=== PATIENT | female | born 1955 | race African-American/Black ===

== ENCOUNTER 2019-04-25 20:41 | Emergency (ER) | payer MEDICAID ==
[~2019-04-25] VITALS: Ht 162.6 cm; Wt 86.2 kg
--- NOTE | 2019-04-25 21:00 | NUR ---
ED Nurse Note: Patient was BIBA from home due to N/V, abdominal pain X2 days. Stated that has Hx of IBS. Patient presented anxious, crying, c/o abd pain 04/16. AAO x4, VSS at this time, skin ios dry warm to touch.
[2019-04-25 21:03] VITALS: BP 160/100
--- NOTE | 2019-04-25 21:08 | Emergency Room Report ---
History of Present Illness General Chief Complaint: Abdominal Pain Source: Patient Present Illness HPI Is a 63-year-old female with a history of IBS. She also has previous lap scopic cholecystectomy. She presents with chief complaint abdominal pain. Pain is mostly right upper quadrant. Onset for last 2 days. Has nausea but no vomiting. No diarrhea. Pain is 9 out of 10. Worse with movement. No fever chills. No trauma. Nothing made it better. Denies any other complaint. Allergies: Coded Allergies: CIMETIDINE (Verified Allergy, Unknown, 04/25/19) IODINATED CONTRAST MEDIA (Verified Allergy, Unknown, 04/25/19) Uncoded Allergies: IDODINE (Allergy, Unknown, 04/25/19) Patient History Past Medical History: see triage record, old chart reviewed Past Surgical History: cha Pertinent Family History: none Social History: Denies: smoking Now: No Immunizations: other Reviewed Nursing Documentation: PMH: Agreed; PSxH: Agreed Nursing Documentation-PMH Past Medical History: No Stated History Review of Systems Eye: Denies: eye pain, blurred vision ENT: Denies: ear pain, nose congestion, throat swelling Respiratory: Denies: cough, shortness of breath Cardiovascular: Denies: chest pain, palpitations Gastrointestinal: Reports: abdominal pain, nausea; Denies: diarrhea, vomiting Musculoskeletal: Denies: back pain, joint pain Skin: Denies: rash Neurological: Denies: headache, numbness Endocrine: Denies: increased thirst, increased urine Hematologic/Lymphatic: Denies: easy bruising All Other Systems: negative except mentioned in HPI Physical Exam Vital Signs Date Time Temp Pulse Resp B/P (MAP) Pulse Ox O2 Delivery O2 Flow Rate FiO2 04/25/19 20:43 98.4 70 18 160/100 (120) 98 Room Air Vitals with high blood pressure Sp02 EP Interpretation: reviewed, normal General Appearance: well appearing, no apparent distress, alert Head: normocephalic, atraumatic Eyes: bilateral eye PERRL, bilateral eye EOMI ENT: hearing grossly normal, normal pharynx Neck: full range of motion, supple, no meningismus Respiratory: chest non-tender, lungs clear, normal breath sounds Cardiovascular #1: regular rate, rhythm, no murmur Gastrointestinal: no mass, no organomegaly, no bruit, non-distended, tenderness - Diffuse, decreased bowel sounds Musculoskeletal: back normal, gait/station normal, normal range of motion Psychiatric: mood/affect normal Medical Decision Making Diagnostic Impression: Primary Impression: SBO (small bowel obstruction) Additional Impression: Pulmonary nodules ER Course Patient presents with abdominal pain with nausea. CT scan shows small bowel obstruction. She had previous laproscopic cholecystectomy. NG tube placed. Pain is better controlled. Patient is stable for transfer versus admit based on insurance. Lab Results Impression Iabs unremarkable CT/MRI/US Diagnostic Results CT/MRI/US Diagnostic Results : Imaging Test Ordered: CT abdomen and pelvis Impression Read by radiologist. She has bibasilar bronchiectasis. Multiple new pulmonary nodule in lungs. Dilated fluid-filled loops of small bowel measuring up to 3.5 cm with transition point in the right lower quadrant. Compatible with small bowel obstruction. Last Vital Signs Date Time Temp Pulse Resp B/P (MAP) Pulse Ox O2 Delivery O2 Flow Rate FiO2 04/25/19 21:03 70 18 Room Air 04/25/19 21:03 98.4 160/100 98 Status: improved Disposition: XFER [facility] Condition: Stable Alexandr Birmingham MD Apr 25, 2019 21:08
[2019-04-25] MEDS ORDERED: HYDROmorphone 1mg/ml Carpuject IVP ONE (21:15)
[2019-04-25 21:20] LABS: ANION GAP 10 mmol/L (5-15); BLOOD UREA NITROGEN 13 mg/dL (7-18); CALCIUM 9.9 MG/DL (8.5-10.1); CARBON DIOXIDE 24 MMOL/L (21-32); CHLORIDE 108 MMOL/L (98-107); CREATININE 1.1 MG/DL (0.55-1.30); SODIUM 142 MMOL/L (136-145)
[2019-04-25 21:26] LABS: ALANINE AMINOTRANSFERASE 19 U/L (12-78); ALBUMIN 3.2 G/DL (3.4-5.0); ALBUMIN/GLOBULIN RATIO 0.7 (1.0-2.7); ALKALINE PHOSPHATASE 68 U/L (46-116); ASPARTATE AMINO TRANSFERASE 13 U/L (15-37); BILIRUBIN,TOTAL 0.3 MG/DL (0.2-1.0)
[2019-04-25 21:35] LABS: APPEARANCE,URINE CLEAR; BILIRUBIN, URINE NEGATIVE (NEGATIVE); COLOR,URINE PALE YELLOW; GLUCOSE, URINE (UA) NEGATIVE (NEGATIVE); KETONES,URINE NEGATIVE (NEGATIVE); LEUKOCYTE ESTERASE ,URINE NEGATIVE (NEGATIVE); NITRITE,URINE NEGATIVE (NEGATIVE); PH,URINE 6 (4.5-8.0); PROTEIN,URINE NEGATIVE (NEGATIVE); UROBILINOGEN,URINE NORMAL MG/DL (0.0-1.0)
[2019-04-25 21:37] LABS: HEMATOCRIT 46.2 % (37.0-47.0); HEMOGLOBIN 15.8 G/DL (12.0-16.0); MEAN CORPUSCULAR VOLUME 91 FL (80-99); PLATELET COUNT 258 K/UL (150-450); RED BLOOD COUNT 5.06 M/UL (4.20-5.40); RED CELL DISTRIBUTION WIDTH 11.5 % (11.6-14.8); WHITE BLOOD COUNT 8.6 K/UL (4.8-10.8)
[2019-04-25] MEDS ORDERED: Morphine Sulfate 4mg/ml Inj (IV USE ONLY) IVP ONE (23:00)
--- NOTE | 2019-04-25 23:01 | Diagnostic Imaging Report ---
EXAM: CT Abdomen and Pelvis Without Intravenous Contrast CLINICAL HISTORY: ABD PAIN TECHNIQUE: Axial computed tomography images of the abdomen and pelvis without intravenous contrast. CTDI is 18.3 mGy and DLP is 1107.8 mGy-cm. One or more of the following dose reduction techniques were used: automated exposure control, adjustment of the mA and or kV according to patient size, use of iterative reconstruction technique. COMPARISON: CT dated 12 18 2010. FINDINGS: Lung bases: Bibasilar bronchiectasis and bronchial wall thickening. Multiple new solid pulmonary nodules in both lung bases measuring up to 5 mm on the left and 9 mm on the right. ABDOMEN: Liver: Unremarkable. Gallbladder and bile ducts: Prior cholecystectomy. No ductal dilation. Pancreas: Unremarkable. No ductal dilation. Spleen: Unremarkable. No splenomegaly. Adrenals: Unremarkable. No mass. Kidneys and ureters: Unremarkable. No calculi. No hydronephrosis. Stomach and bowel: Few scattered diverticula without evidence of diverticulitis. Mildly dilated fluid-filled loops of small bowel measuring up to 3.5 cm with an apparent transition point in the right lower quadrant. PELVIS: Appendix: The appendix is not identified with certainty. Bladder: Unremarkable. No stones. Reproductive: Unremarkable as visualized. ABDOMEN and PELVIS: Intraperitoneal space: Unremarkable. No free air. No significant fluid collection. Bones joints: No acute fracture. Soft tissues: Small fat-containing umbilical hernia. Lymph nodes: Unremarkable. No enlarged lymph nodes. IMPRESSION: 1. Bibasilar bronchiectasis and bronchial wall thickening. 2. Multiple new solid pulmonary nodules in both lung bases measuring up to 5 mm on the left and 9 mm on the right. For high-risk patients consider a follow-up CT at 3 months. If unchanged consider an additional follow-up CT at 18-24 months. Alternatively (or additionally) PET CT or tissue sampling could be performed. 3. Few scattered diverticula without evidence of diverticulitis. 4. Mildly dilated fluid-filled loops of small bowel measuring up to 3.5 cm with an apparent transition point in the right lower quadrant. This is most compatible with small bowel obstruction.
[2019-04-25] MEDS ORDERED: DiphenhydrAMINE 25mg/10ml Elixir ONE (23:08)
[2019-04-25] MEDS ORDERED: DiphenhydrAMINE 50mg/ml Inj IVP ONE (23:15)
--- NOTE | 2019-04-25 23:48 | NUR ---
Face sheet, MD dictation, CT report and clinicals faxed to [phone] as requested by Sneha gandara [facility].
[2019-04-26 00:05] VITALS: BP 160/100
--- NOTE | 2019-04-26 00:26 | NUR ---
ED Nurse Note: NG tube was placed by Dr. Birmingham in right nares, 16 Fr. Patient tolerated procedure well.
[2019-04-26] MEDS ORDERED: HYDROmorphone 1mg/ml Carpuject IVP ONE (02:15)
[2019-04-26 03:45] VITALS: BP 155/75
--- NOTE | 2019-04-26 03:48 | NUR ---
ED Nurse Note: Patient was transfered to the [facility] due to small bowel obstruction. Patient was transfered via [facility] BLS # [id number], with all belongings. AAO x4, VSS at this time, skin is warm to touch, IV site L forearm 18 ga.
== END 2019-04-26 03:51 | disposition short-term general hospital (02) ==
LOC: EDBD 20:41 → EMR 21:09
DX: K56.609 Unspecified intestinal obstruction, unspecified as to partial versus complete obstruction (principal); R91.8 Other nonspecific abnormal finding of lung field; Z90.49 Acquired absence of other specified parts of digestive tract; Z88.8 Allergy status to other drugs, medicaments and biological substances; Z91.041 Radiographic dye allergy status
CPT/HCPCS: 36415; 74176; 80053; 81003; 83690; 85007; 85025; 96361; 96374; 96375; 96376; J1170; J1200; J2270; J2405; Z7502; 99285; J7030

== ENCOUNTER 2019-05-31 19:54 | Emergency (ER) | payer MEDICAID ==
[~2019-05-31] VITALS: Ht 162.6 cm; Wt 86.2 kg
[2019-05-31 20:05] VITALS: BP 144/88
--- NOTE | 2019-05-31 20:07 | Emergency Room Report ---
History of Present Illness General Chief Complaint: Multiple Trauma/Fall Source: Patient, EMS Present Illness HPI Patient fell after a stair gave way. It was the second to the last stair. She more slipped and scraped her back. She also twisted and hit her left knee and hit her left shoulder. There was no loss of consciousness. She was able to walk a few steps afterwards. She is complaining about severe pain in her shoulder and her knee at this time with some pain in her back also. She states she scraped her back. She rates the pain 10/10, aching and sharp with some burning where she scraped herself. Unknown last tetanus vaccination. Right-handed. History of hypertension. Disabled due to depression. No fevers, chills, sore throat, chest pain, palpitations, nausea, vomiting, diarrhea, dysuria, abdominal pain, shortness of breath, anxiety, visual changes , dizziness, headache. Allergies: Coded Allergies: CIMETIDINE (Verified Allergy, Unknown, 04/25/19) IODINATED CONTRAST MEDIA (Verified Allergy, Unknown, 04/25/19) Uncoded Allergies: IDODINE (Allergy, Unknown, 04/25/19) Patient History Past Medical History: see triage record Social History: Reports: smoking; Denies: alcohol use, drug use Social History Narrative Lives by herself Now: No Reviewed Nursing Documentation: PMH: Agreed; PSxH: Agreed Nursing Documentation-PMH Past Medical History: No History, Except For Hx Hypertension: Yes Hx Asthma: Yes History Of Psychiatric Problem: Yes Review of Systems All Other Systems: negative except mentioned in HPI Physical Exam Vital Signs Date Time Temp Pulse Resp B/P (MAP) Pulse Ox O2 Delivery O2 Flow Rate FiO2 05/31/19 19:59 97.9 84 18 143/91 (108) 98 Room Air Sp02 EP Interpretation: reviewed, normal General Appearance: well appearing, no apparent distress - But in pain, GCS 15 Head: normocephalic, atraumatic Eyes: bilateral eye normal inspection, bilateral eye PERRL, bilateral eye EOMI ENT: moist mucus membranes Neck: full range of motion, supple, no bony tend Respiratory: chest non-tender, lungs clear, normal breath sounds Cardiovascular #1: regular rate, rhythm Cardiovascular #2: 2+ radial (R), 2+ radial (L), 2+ dorsalis pedis (L) Gastrointestinal: normal inspection, normal bowel sounds, non tender, no mass, non-distended Musculoskeletal: normal range of motion, gait/station normal, tender - Upper back, left shoulder and left knee, other - Knee ligaments stable, no effusion, shoulder with fairly good passive range of motion with some tenderness. Elbow and wrist without tenderness, diffuse T-spine tenderness particularly over areas of abrasion. Neurologic: alert, oriented x3, grossly normal Psychiatric: mood/affect normal Skin: normal color, warm/dry, other - Abrasion right upper back and under watchband right wrist Medical Decision Making Diagnostic Impression: Primary Impression: Multiple injuries due to trauma Additional Impressions: Contusion of left shoulder Qualified Codes: S40.012A - Contusion of left shoulder, initial encounter Contusion of left knee Qualified Codes: S80.02XA - Contusion of left knee, initial encounter Back contusion Qualified Codes: S20.229A - Contusion of unspecified back wall of thorax, initial encounter Osteoarthritis Qualified Codes: M19.90 - Unspecified osteoarthritis, unspecified site ER Course Patient slipped downstairs and have left shoulder, knee and back pain. Differential includes contusions, abrasions, fracture. X-rays are indicated of the T-spine, shoulder and left knee. Patient will be treated for pain. Urinalysis will be checked. X-rays with degenerative arthritis without fractures. Urinalysis clear Michael applied to left knee by me. Tension and position excellent with improvement. Distal neurovascular normal. Sling applied by tech and position excellent with improvement of pain in left shoulder. Discussed treatment plan with patient. She is ambulatory. Patient stable for outpatient observation and treatment. Laboratory Tests Test 05/31/19 20:15 Urine Color Yellow Urine Appearance Clear Urine pH 6 (4.5-8.0) Urine Specific [place] 1.015 (1.005-1.035) Urine Protein Negative (NEGATIVE) Urine Glucose (UA) Negative (NEGATIVE) Urine Ketones Negative (NEGATIVE) Urine Blood Negative (NEGATIVE) Urine Nitrite Negative (NEGATIVE) Urine Bilirubin Negative (NEGATIVE) Urine Urobilinogen 4 MG/DL (0.0-1.0) H Urine Leukocyte Esterase 1+ (NEGATIVE) H Urine RBC 0-2 /HPF (0 - 2) Urine WBC 2-4 /HPF (0 - 2) Urine Squamous Epithelial Cells Few /LPF (NONE/OCC) Urine Bacteria None /HPF (NONE) Other X-Ray Diagnostic Results Other X-Ray Diagnostic Results #1: X-Ray ordered: T-spine # of Views/Limited Vs Complete: 2 View Interpretation: no dislocation, no soft tissue swelling, no fractures, other - Degenerative changes Impression: Other Electronically Signed by: Electronically signed by Gurpreet Wei MD Other X-Ray Diagnostic Results #2: X-Ray ordered: Left shoulder # of Views/Limited Vs Complete: 3 View Indication: Other EP Interpretation: Yes Interpretation: no dislocation, no soft tissue swelling, no fractures, other - Osteoarthritis Impression: Other Electronically Signed by: Electronically signed by Gurpreet Wei MD Other X-Ray Diagnostic Results #3: X-Ray ordered: Left knee # of Views/Limited Vs Complete: 3 View Indication: Other EP Interpretation: Yes Interpretation: no dislocation, no fractures, other - Soft tissue swelling and degenerative arthritis Impression: Other Electronically Signed by: Electronically signed by Gurpreet Wei MD Last Vital Signs Date Time Temp Pulse Resp B/P (MAP) Pulse Ox O2 Delivery O2 Flow Rate FiO2 05/31/19 22:35 98.0 84 18 138/88 98 Room Air 98 Status: improved Disposition: HOME, SELF-CARE Condition: Improved Scripts Bacitracin (Bacitracin) 28.4 Gm Oint...g. 1 APPLIC TOPIC BID, #10 GM Prov: Gurpreet Wei MD 05/31/19 Ibuprofen* (MOTRIN*) 600 Mg Tablet 600 MG ORAL Q6H PRN for For Pain, #16 TAB 0 Refills Prov: Gurpreet Wei MD 05/31/19 Hydrocodone Bit/Acetaminophen 5-325* (NORCO 5-325*) 1 Each Tablet 1 TAB ORAL Q6H PRN for For Pain, #10 TAB 0 Refills Prov: Gurpreet Wei MD 05/31/19 Gurpreet Wei MD May 31, 2019 20:07
[2019-05-31] MEDS ORDERED: Morphine Sulfate 4mg/ml Inj (IV USE ONLY) IVP ONE (20:15)
[2019-05-31] MEDS ORDERED: Ketorolac 30mg Inj IV ONE (20:15)
[2019-05-31] MEDS ORDERED: Tetanus/Diptheria/Pertussis IM ONE (20:45)
[2019-05-31] MEDS ORDERED: Bacitracin Oint UD TOPIC ONE (20:45)
[2019-05-31 20:59] LABS: APPEARANCE,URINE CLEAR; BILIRUBIN, URINE NEGATIVE (NEGATIVE); GLUCOSE, URINE (UA) NEGATIVE (NEGATIVE); KETONES,URINE NEGATIVE (NEGATIVE); LEUKOCYTE ESTERASE ,URINE 1+ (NEGATIVE); NITRITE,URINE NEGATIVE (NEGATIVE); PH,URINE 6 (4.5-8.0); PROTEIN,URINE NEGATIVE (NEGATIVE); UROBILINOGEN,URINE 4 MG/DL (0.0-1.0)
[2019-05-31 21:00] LABS: COLOR,URINE YELLOW
[2019-05-31] MEDS ORDERED: BACITRACIN15 GM TOPIC (22:32)
[2019-05-31] MEDS ORDERED: IBUPROFEN600 MG ORAL (22:32)
[2019-05-31] MEDS ORDERED: NORCO 5-325 TA1 EACH ORAL (22:32)
[2019-05-31 22:35] VITALS: BP 138/88
--- NOTE | 2019-06-01 09:57 | Diagnostic Imaging Report ---
INDICATION: Knee Pain COMPARISON: None 3 views of the left knee were obtained. FINDINGS: Bones are osteopenic. There is moderate tricompartmental osteophyte formation with some joint space narrowing. There is no joint effusion. Alignment is normal. IMPRESSION: Osteoarthritis
--- NOTE | 2019-06-01 09:58 | Diagnostic Imaging Report ---
Indication: left shoulder pain Findings: 3 views of the left shoulder were obtained. No acute fracture or malalignment identified. Bones are osteopenic. There is narrowing, sclerosis and osteophyte formation involving both the acromioclavicular joint and the glenohumeral joint consistent with osteoarthritis. Soft tissues are unremarkable. Degenerative changes of the cervical spine and thoracic spine are incidentally noted. IMPRESSION: No acute injury identified. Osteoarthritis
--- NOTE | 2019-06-01 10:04 | Diagnostic Imaging Report ---
Indication: Back pain Comparison: None Findings: 2 views of the thoracic spine were obtained. Normal alignment is demonstrated. Vertebral body heights and intervertebral disc heights are relatively normal. Mild endplate spurs are noted. The posterior elements including the facets appear mildly hypertrophic. Soft tissues are unremarkable. Impression: No acute injury appreciated. Mild degenerative disease
== END 2019-05-31 22:35 | disposition home or self-care (01) ==
LOC: EDBD 19:54 → EDUNIT# 19:54 → EMR 20:15
DX: S40.012A Contusion of left shoulder, initial encounter (principal); S80.02XA Contusion of left knee, initial encounter; S20.229A Contusion of unspecified back wall of thorax, initial encounter; M19.90 Unspecified osteoarthritis, unspecified site; W01.0XXA Fall on same level from slipping, tripping and stumbling without subsequent striking against object, initial encounter; Y92.9 Unspecified place or not applicable; Z91.041 Radiographic dye allergy status; I10 Essential (primary) hypertension; F17.200 Nicotine dependence, unspecified, uncomplicated; Z23 Encounter for immunization; M17.12 Unilateral primary osteoarthritis, left knee; M19.012 Primary osteoarthritis, left shoulder
CPT/HCPCS: 72070; 73030; 73562; 81001; 90471; 90715; 96374; 96375; J1885; J2270; J2405; Z7502; 99284

== ENCOUNTER 2020-04-15 13:13 | Emergency (ER) | payer MEDICAID, OTHER ==
[~2020-04-15] VITALS: Ht 162.6 cm; Wt 96.2 kg
[~2020-04-15 13:13] MED LIST: BACITRACIN15 GM TOPIC; IBUPROFEN600 MG ORAL; NORCO 5-325 TA1 EACH ORAL
[2020-04-15] MEDS ORDERED: Morphine Sulfate 2mg/ml Inj(IV/IM USE ONLY) IVP ONE (13:45)
--- NOTE | 2020-04-15 14:10 | NUR ---
ED Nurse Note:pt. came with abdominal pain, A/Ox4 ambulatory, VSS, blood and urine sent to labs, given IV fluids and meds
[2020-04-15 14:23] LABS: APPEARANCE,URINE CLEAR; BASOPHILS % (AUTO) 2.9 % (0.0-2.0); BILIRUBIN, URINE NEGATIVE (NEGATIVE); EOSINOPHILS % (AUTO) 0.8 % (0.0-3.0); GLUCOSE, URINE (UA) NEGATIVE (NEGATIVE); HEMATOCRIT 42.5 % (37.0-47.0); HEMOGLOBIN 14.8 G/DL (12.0-16.0); KETONES,URINE NEGATIVE (NEGATIVE); LEUKOCYTE ESTERASE ,URINE NEGATIVE (NEGATIVE); LYMPHOCYTES % (AUTO) 26.8 % (20.0-45.0); MEAN CORPUSCULAR VOLUME 89 FL (80-99); MONOCYTES % (AUTO) 4.4 % (1.0-10.0); NEUTROPHILS % (AUTO) 65.1 % (45.0-75.0); NITRITE,URINE NEGATIVE (NEGATIVE); PH,URINE 6 (4.5-8.0); PLATELET COUNT 301 K/UL (150-450); PROTEIN,URINE 1+ (NEGATIVE); RED BLOOD COUNT 4.78 M/UL (4.20-5.40); RED CELL DISTRIBUTION WIDTH 12.3 % (11.6-14.8); UROBILINOGEN,URINE NORMAL MG/DL (0.0-1.0); WHITE BLOOD COUNT 13.4 K/UL (4.8-10.8)
[2020-04-15 14:24] LABS: COLOR,URINE YELLOW
[2020-04-15 14:35] LABS: INR 0.9 (0.9-1.1)
[2020-04-15 14:37] VITALS: BP 153/90
[2020-04-15 14:44] LABS: ANION GAP 13 mmol/L (5-15); BLOOD UREA NITROGEN 10 mg/dL (7-18); CALCIUM 9.1 MG/DL (8.5-10.1); CARBON DIOXIDE 22 MMOL/L (21-32); CHLORIDE 103 MMOL/L (98-107); POTASSIUM 4.5 MMOL/L (3.5-5.1); SODIUM 138 MMOL/L (136-145)
[2020-04-15 14:50] LABS: ALANINE AMINOTRANSFERASE 16 U/L (12-78); ALBUMIN 3.4 G/DL (3.4-5.0); ALBUMIN/GLOBULIN RATIO 0.8 (1.0-2.7); ALKALINE PHOSPHATASE 75 U/L (46-116); ASPARTATE AMINO TRANSFERASE 19 U/L (15-37); BILIRUBIN,TOTAL 0.6 MG/DL (0.2-1.0)
--- NOTE | 2020-04-15 14:51 | Emergency Room Report ---
History of Present Illness General Chief Complaint: Abdominal Pain Source: Patient (Iraida Law) Present Illness HPI 64-year-old female with history of small bowel obstruction here complaining of 1 week of epigastric abdominal pain rating a 10/10 with multiple bouts of nonbloody emesis. Denies any diarrhea however reports that it is really hard for her to make back bowel movement denies any blood in stool. Denies fever and chills, complains of congestion however denies cough. No shortness of breath. Reports that end of February she went to [facility] and was diagnosed with bowel obstruction was sent to follow-up with primary doctor. Patient went to primary doctor today and was sent to the emergency room. Denies any drug use and alcohol intake. Reports that she smokes tobacco. Reports that she recently lost her sister and she has been very sad. Denies urinary symptoms. Abdomen is not rigid. EYES: PERRL, EOMI, no discharge or injection. Denies any chest pain, headache and dizziness. (Iraida Law) Allergies: Coded Allergies: CIMETIDINE (Verified Allergy, Unknown, 04/25/19) IODINATED CONTRAST MEDIA (Verified Allergy, Unknown, 04/25/19) Uncoded Allergies: IDODINE (Allergy, Unknown, 04/25/19) COVID-19 Screening Contact w/high risk pt: No Experienced COVID-19 symptoms?: No COVID-19 Testing performed [employer]: Yes - 2 weeks ago COVID-19 Screening: Negative COVID-19 COVID-19 Testing Source: [facility] (Iraida Law) Patient History Past Medical History: see triage record Past Surgical History: none Pertinent Family History: none Social History: Reports: smoking Now: No Reviewed Nursing Documentation: PMH: Agreed; PSxH: Agreed (Iraida Law) Nursing Documentation-PMH Hx Cardiac Problems: Yes Hx Hypertension: Yes Hx Asthma: Yes Hx Cancer: No Hx Gastrointestinal Problems: Yes - GERD Hx Neurological Problems: No (Iraida Law) Review of Systems All Other Systems: negative except mentioned in HPI (Iraida Law) Physical Exam Vital Signs Date Time Temp Pulse Resp B/P (MAP) Pulse Ox O2 Delivery O2 Flow Rate FiO2 10/9/20 13:20 98.1 97 22 157/94 (115) 98 Sp02 EP Interpretation: reviewed, normal General Appearance: alert, GCS 15, non-toxic, moderate distress Head: normocephalic, atraumatic Eyes: bilateral eye normal inspection, bilateral eye PERRL ENT: hearing grossly normal, normal pharynx, no angioedema, normal voice Neck: supple Respiratory: chest non-tender, lungs clear, normal breath sounds, no rhonchi, no retraction, speaking full sentences Cardiovascular #1: regular rate, rhythm, no edema, no murmur Cardiovascular #2: 2+ carotid (R), 2+ carotid (L), 2+ radial (R), 2+ radial (L), 2+ dorsalis pedis (R), 2+ dorsalis pedis (L) Gastrointestinal: normal bowel sounds, non tender, soft, non-distended, no guarding, no rebound Genitourinary: no CVA tenderness Musculoskeletal: back normal, no calf tenderness Neurologic: alert, motor strength/tone normal, oriented x3, sensory intact, responsive, speech normal Psychiatric: judgement/insight normal, memory normal, mood/affect normal, no suicidal/homicidal ideation Skin: no rash Lymphatic: no adenopathy (Iraida Law) Medical Decision Making PA Attestation Diagnosis and treatment plans were reviewed and discussed with my supervising physician Dr. Vegas (Iraida Law) PA Attestation I participate in the care of this patient along with ANITA Johnson Briefly this is a 64-year-old female with prior history of bowel obstruction presenting with abdominal pain. Labs returned within normal limits aside from testing positive for cocaine on urine drug screen. No bowel obstruction id entified on CT scan of the abdomen however the patient does appear to have diverticulitis. She is afebrile with normal-appearing vital signs and normal labs otherwise. Will be treated with antibiotics on an outpatient basis. She feels comfortable with this discharge plan. Advised her to follow-up with PMD as soon as possible and to return with new or worsening symptoms. She un derstands and agrees with this treatment plan. (Chuck Bailon MD) Diagnostic Impression: Primary Impression: Diverticulitis Additional Impression: Cocaine abuse ER Course 64-year-old female with history of small bowel obstruction here complaining of 1 week of epigastric abdominal pain rating a 10/10 with multiple bouts of nonbloody emesis. Denies any diarrhea however reports that it is really hard for her to make back bowel movement denies any blood in stool. Denies fever and chills, complains of congestion however denies cough. No shortness of breath. Reports that end of February she went to [facility] and was diagnosed with bowel obstruction was sent to follow-up with primary doctor. Patient went to primary doctor today and was sent to the emergency room. Denies any drug use and alcohol intake. Reports that she smokes tobacco. Reports that she recently lost her sister and she has been very sad. Denies urinary symptoms. Abdomen is not rigid. EYES: PERRL, EOMI, no discharge or injection. Denies any chest gaurav n, headache and dizziness. Ddx considered but are not limited to: appendicitis, cholecystis, gastritis, gastroenteritis, UTI, pyelonephritis, SBO, diverticulitis, influenza with GI manifestation, SD, pancreatitis Patient has an upcoming appointment with primary doctor next week and is afebrile and wants to go home okay to be discharged with antibiotics. Vital signs: are WNL, pt. is afebrile H&PE are most consistent with: diverticulitis ORDERS: abdominal CT, abdominal pain set, EKG, Cipro, Flagyl, Zofran, Tylenol ED INTERVENTIONS: NS bolus, morphine, Pepcid, Zofran DISCHARGE: At this time pt. is stable for d/c to home. Will provide printed patient care instructions, and any necessary prescriptions. Care plan and follow up instructions have been discussed with the patient prior to discharge. Take medication as directed, follow-up with your primary care provider, worsening symptoms return to the emergency room (Iraida Law) EKG Diagnostic Results Rate: normal Rhythm: NSR ST Segments: no acute changes Other Impression No acute ST changes (Iraida Law) CT/MRI/US Diagnostic Results CT/MRI/US Diagnostic Results : Imaging Test Ordered: CT abdomen pelvis no contrast Impression Diverticulitis noted, no SBO noted (Iraida Law) Last Vital Signs Date Time Temp Pulse Resp B/P (MAP) Pulse Ox O2 Delivery O2 Flow Rate FiO2 04/15/20 14:37 98.1 94 22 153/90 98 (Iraida Law) Disposition: HOME, SELF-CARE Condition: Stable Scripts Acetaminophen* (TYLENOL EXTRA STRENGTH*) 500 Mg Tablet 500 MG ORAL Q8H PRN for Prn Headache/Temp > 101, #30 TAB 0 Refills Prov: Iraida Law 04/15/20 Ondansetron (Zofran) 4 Mg Tablet 4 MG ORAL Q6H PRN for Nausea & Vomiting, #14 TAB Prov: Iraida Law 04/15/20 Ciprofloxacin* (CIPRO*) 500 Mg Tablet 500 MG PO BID for 10 Days, #20 TAB Prov: Iraida Law 04/15/20 Metronidazole* (FLAGYL*) 500 Mg Tablet 500 MG ORAL BID for 10 Days, #20 TAB Prov: Iraida Law 04/15/20 Referrals: NOT CHOSEN IPA/,REFERRING (PCP) Patient Instructions: Diverticulitis, [id number], Stimulant Use Disorder- Cocaine Additional Instructions: Take medication as directed, follow-up with your primary care provider, worsening symptoms return to the emergency room Iraida Law Apr 15, 2020 14:51 Chuck Bailon MD Apr 15, 2020 17:21
[2020-04-15] MEDS ORDERED: ZOFRAN4 M1 ORAL (15:40)
[2020-04-15] MEDS ORDERED: TYLENOL EXTRA500 MG ORAL (15:40)
[2020-04-15] MEDS ORDERED: CIPRO500 MG PO (15:40)
[2020-04-15] MEDS ORDERED: METRONIDAZOLE500 MG ORAL (15:40)
--- NOTE | 2020-04-15 15:41 | Diagnostic Imaging Report ---
Indication: Epigastric abdominal pain 10 out of 10 with multiple bouts of nonbloody emesis Technique: Spiral acquisitions obtained through the abdomen and pelvis. No oral contrast utilized, per emergency room physician request No IV contrast utilized, per emergency room physician request.. Multiplanar reconstructions were generated. Total dose length product 701 mGycm. CTDIvol(s) 13 mGy. Dose reduction achieved using automated exposure control Comparison: 07/24/2019 Findings: The is colonic diverticulosis. There is infiltration of the pericolonic fat at the junction of the descending colon and sigmoid. No extraluminal gas or organized fluid collection demonstrated. The appendix is not visualized. No findings to suggest acute appendicitis are evident. No small bowel distention. Distal esophagus, stomach, duodenum are unremarkable. No free or loculated intraperitoneal gas or fluid is evident. Lack of IV contrast limits assessment of solid organs. The gallbladder has been removed. The liver, bile ducts, pancreas, spleen, adrenals, kidneys are all unremarkable. No renal or ureteral calculi, hydronephrosis nor hydroureter. Prominent but not frankly enlarged retroperitoneal nodes are demonstrated. No pelvic mass or adenopathy. The uterus is absent. The included lung bases demonstrate bronchiectasis, small cystic spaces, and a slight mosaic perfusion pattern The bones demonstrate degenerative spondylosis changes. Impression: Evidence of acute uncomplicated distal descending/proximal sigmoid diverticulitis Evidence of pulmonary parenchymal interstitial disease, also previously described Other findings as noted, including prior cholecystectomy, prior hysterectomy The CT scanner at [facility] is accredited by the [employer] and the scans are performed using protocols designed to limit radiation exposure to as low as reasonably achievable to attain images of sufficient resolution adequate for diagnostic evaluation.
[2020-04-15 15:45] VITALS: BP 153/90
--- NOTE | 2020-04-15 15:45 | NUR ---
ER DISCHARGE NOTE: Patient is cleared to be discharged per ERMD, pt is aox4, on room air, with stable vital signs. pt was given dc and prescription instructions, pt was able to verbalize understanding, pt id band and iv site removed without complications. pt is able to ambulate with steady gait. pt took all belongings.
--- NOTE | 2020-04-18 06:20 | Cardiology Report ---
APPROVED REPORT EKG Measurement Heart [id number] <Conclusion> Normal sinus rhythm Possible Left atrial enlargement Borderline ECG
== END 2020-04-15 15:45 | disposition home or self-care (01) ==
LOC: EMR 13:45
DX: K57.92 Diverticulitis of intestine, part unspecified, without perforation or abscess without bleeding (principal); F14.10 Cocaine abuse, uncomplicated; Z91.041 Radiographic dye allergy status; I10 Essential (primary) hypertension; K21.9 Gastro-esophageal reflux disease without esophagitis; F17.200 Nicotine dependence, unspecified, uncomplicated; Z90.49 Acquired absence of other specified parts of digestive tract; Z90.710 Acquired absence of both cervix and uterus; M47.9 Spondylosis, unspecified
CPT/HCPCS: 36415; 74176; 80053; 80307; 81003; 83690; 84484; 85025; 85610; 85730; 86850; 86900; 86901; 93005; 96361; 96374; 96375; G0480; J2270; J2405; J7030; S0028; Z7502; 99284

== ENCOUNTER 2020-04-23 21:08 | Inpatient (IN) | payer OTHER ==
[~2020-04-23] VITALS: Ht 162.6 cm; Wt 99.3 kg
[~2020-04-23 21:08] MED LIST changes: +CIPRO500 MG PO; +METRONIDAZOLE500 MG ORAL; +TYLENOL EXTRA500 MG ORAL; +ZOFRAN4 M1 ORAL
--- NOTE | 2020-04-23 21:15 | NUR ---
ED Nurse Note: Patient walked into the ED with c/o lower abdominal pain. Pain is rated 10/10, non radiating accompanied with nausea and vomiting. Patient denies injury/ trauma. PAtient was seen days ago for bowel obstruction and was prescribed antibiotics and pain meds. Patient denies fever and chills, CP/SOB/. PAtient is AAOX4 and ambulatory. Placed on monitor bed
--- NOTE | 2020-04-23 21:16 | NUR ---
ED Nurse Note: ERMD at bedside
[2020-04-23] MEDS ORDERED: Morphine Sulfate 4mg/ml Inj (IV USE ONLY) IVP ONE (21:30)
--- NOTE | 2020-04-23 21:30 | NUR ---
ED Nurse Note: Blood sent to lab
--- NOTE | 2020-04-23 21:40 | Emergency Room Report ---
History of Present Illness General Chief Complaint: Abdominal Pain Source: Patient Present Illness HPI 64-year-old female with a history of diverticulitis diagnosed 10 days ago, recurrent small bowel obstructions, here with abdominal pain and vomiting. Patient says that her symptoms have been ongoing for 2 days. Has vomited multiple times nonbilious nonbloody. She is taking MiraLAX and says that she has been having small amount of loose stools. Last bowel movement was earlier today. Pain is diffuse, sharp in nature, does not radiate. Has been taking Tylenol at home without relief. No headaches, vision changes, fevers, chills, chest pain, palpitation, shortness of breath, back pain, dysuria. Allergies: Coded Allergies: CIMETIDINE (Verified Allergy, Unknown, 04/25/19) IODINATED CONTRAST MEDIA (Verified Allergy, Unknown, 04/25/19) Uncoded Allergies: IDODINE (Allergy, Unknown, 04/25/19) COVID-19 Screening Contact w/high risk pt: No Experienced COVID-19 symptoms?: Yes COVID-19 Testing performed CUSTOMER ACCOUNT COORDINATOR: No Patient History Now: No : 3 Para: 2 Nursing Documentation-[facility] Past Medical History: No History, Except For Hx Cardiac Problems: Yes Hx Hypertension: Yes Hx Asthma: Yes Hx Cancer: No Hx Gastrointestinal Problems: Yes - GERD, bowel obstruction Hx Neurological Problems: No Review of Systems All Other Systems: negative except mentioned in HPI Physical Exam Vital Signs Date Time Temp Pulse Resp B/P (MAP) Pulse Ox O2 Delivery O2 Flow Rate FiO2 04/23/20 21:08 98.2 100 24 151/89 (109) 98 Room Air Sp02 EP Interpretation: reviewed, normal General Appearance: alert, non-toxic, moderate distress, other - Writhing in pain Head: normocephalic, atraumatic Eyes: bilateral eye normal inspection, bilateral eye PERRL ENT: hearing grossly normal, normal pharynx, no angioedema, normal voice Neck: full range of motion, supple/symm/no masses Respiratory: chest non-tender, lungs clear, normal breath sounds, speaking full sentences Cardiovascular #1: regular rate, rhythm, no edema Cardiovascular #2: 2+ carotid (R), 2+ carotid (L), 2+ radial (R), 2+ radial (L), 2+ dorsalis pedis (R), 2+ dorsalis pedis (L) Gastrointestinal: normal bowel sounds, non-distended, no rebound, other - Diffuse abdominal tenderness on palpation. Mild distention. Guarding, no rebound tenderness Rectal: deferred Genitourinary: normal inspection, no CVA tenderness Musculoskeletal: back normal, normal range of motion, gait/station normal, non- tender Neurologic: alert, motor strength/tone normal, oriented x3, sensory intact, responsive, speech normal Psychiatric: judgement/insight normal, memory normal, mood/affect normal, no suicidal/homicidal ideation Lymphatic: no adenopathy Medical Decision Making ER Course 64-year-old female here with abdominal pain. Currently awaiting labs and imaging studies. Patient given 4 mg of morphine and 4 mg of Zofran IV. Signed out to oncoming physician Dr. Hutchison. Last Vital Signs Date Time Temp Pulse Resp B/P (MAP) Pulse Ox O2 Delivery O2 Flow Rate FiO2 04/23/20 21:08 98.2 100 24 151/89 (109) 98 Room Air Referrals: NON PHYSICIAN (PCP) Rolo Houston M.D. Apr 23, 2020 21:40
[2020-04-23 21:53] VITALS: BP 151/89
--- NOTE | 2020-04-23 21:55 | NUR ---
ED Nurse Note: CT scan done
--- NOTE | 2020-04-23 22:04 | Diagnostic Imaging Report ---
EXAM: CT Abdomen and Pelvis Without Intravenous Contrast CLINICAL HISTORY: ABD PAIN TECHNIQUE: Axial computed tomography images of the abdomen and pelvis without intravenous contrast. CTDI is 13.60 mGy and DLP is 714.70 mGy-cm. One or more of the following dose reduction techniques were used: automated exposure control, adjustment of the mA and/or kV according to patient size, use of iterative reconstruction technique. Coronal and sagittal reformatted images were created and reviewed. COMPARISON: 07/24/2019 FINDINGS: Limitations: Study limited due to lack of IV contrast. Lung bases: Basilar lung findings suggesting interstitial lung disease, incompletely evaluated on this study. ABDOMEN: Liver: Unremarkable. Gallbladder and bile ducts: Cholecystectomy. No ductal dilation. Pancreas: Unremarkable. No ductal dilation. Spleen: Unremarkable. No splenomegaly. Adrenals: Unremarkable. No mass. Kidneys and ureters: Unremarkable. No obstructing stones. No hydronephrosis. Stomach and bowel: Possible minimal early diverticulitis involving the proximal sigmoid colon, no perforation or abscess. Recommend correlation with colonoscopy to exclude infiltrative neoplasm. Moderate colonic stool burden could be a cause for pain. No obstruction. PELVIS: Appendix: No findings to suggest acute appendicitis. Bladder: Unremarkable. No stones. Reproductive: Hysterectomy. ABDOMEN and PELVIS: Intraperitoneal space: Unremarkable. No free air. No significant fluid collection. Bones/joints: Multilevel age-related degenerative spine findings and osteopenia. No acute fracture. No dislocation. Soft tissues: Unremarkable. Vasculature: Unremarkable. No abdominal aortic aneurysm. Lymph nodes: Unremarkable. No enlarged lymph nodes. IMPRESSION: 1. Study limited due to lack of IV contrast. 2. Possible minimal early diverticulitis involving the proximal sigmoid colon, no perforation or abscess. 3. Recommend correlation with colonoscopy to exclude infiltrative neoplasm. 4. Moderate colonic stool burden could be a cause for pain. 5. Basilar lung findings suggesting interstitial lung disease, incompletely evaluated on this study. 6. Cholecystectomy. Hysterectomy. 7. Multilevel age-related degenerative spine findings and osteopenia.
[2020-04-23 22:12] LABS: HEMATOCRIT 48.7 % (37.0-47.0); HEMOGLOBIN 16.6 G/DL (12.0-16.0); MEAN CORPUSCULAR VOLUME 93 FL (80-99); PLATELET COUNT 341 K/UL (150-450); RED BLOOD COUNT 5.21 M/UL (4.20-5.40); RED CELL DISTRIBUTION WIDTH 13.6 % (11.6-14.8); WHITE BLOOD COUNT 8.8 K/UL (4.8-10.8)
[2020-04-23 22:16] LABS: INR 0.9 (0.9-1.1)
[2020-04-23 22:32] LABS: APPEARANCE,URINE CLEAR; BILIRUBIN, URINE NEGATIVE (NEGATIVE); GLUCOSE, URINE (UA) NEGATIVE (NEGATIVE); KETONES,URINE 1+ (NEGATIVE); LEUKOCYTE ESTERASE ,URINE 1+ (NEGATIVE); NITRITE,URINE NEGATIVE (NEGATIVE); PH,URINE 6 (4.5-8.0); PROTEIN,URINE 1+ (NEGATIVE); UROBILINOGEN,URINE 1 MG/DL (0.0-1.0)
[2020-04-23 22:33] LABS: COLOR,URINE YELLOW
[2020-04-23 22:35] LABS: CALCIUM 9.3 MG/DL (8.5-10.1); CREATININE 1.4 MG/DL (0.55-1.30)
[2020-04-23 22:39] LABS: ALBUMIN 3.4 G/DL (3.4-5.0); ALBUMIN/GLOBULIN RATIO 0.7 (1.0-2.7); BILIRUBIN,TOTAL 0.2 MG/DL (0.2-1.0)
--- NOTE | 2020-04-23 22:46 | Emergency Room Report ---
Physical Exam Vital Signs Date Time Temp Pulse Resp B/P (MAP) Pulse Ox O2 Delivery O2 Flow Rate FiO2 04/23/20 21:08 98.2 100 24 151/89 (109) 98 Room Air Medical Decision Making Diagnostic Impression: Primary Impression: Cocaine abuse Additional Impressions: Abdominal pain Diverticulitis ER Course Patient was endorsed to me by Dr. Houston pending CT imaging and laboratory testing. See Dr. Houston note for full History and physical. Was noted to have epigastric pain and left upper abdomen pain. Had recent diagnosis of diverticulitis. Apparently had been vomiting multiple times. CT imaging showed no evidence of bowel obstruction. She was noted to have urine drug screen which is positive for cocaine. Patient denies any cocaine use. EKG showed normal sinus rhythm with a rate of [address] or T wave changes consistent with myocardial ischemia. Patient was given IV Ativan. She started on IV fluids.Patient was endorsed to Dr. Nichols for [facility] who agreed with inpatient observation. Labs Test 04/23/20 21:30 04/23/20 22:10 White Blood Count 8.8 K/UL (4.8-10.8) Red Blood Count 5.21 M/UL (4.20-5.40) Hemoglobin 16.6 G/DL (12.0-16.0) Hematocrit 48.7 % (37.0-47.0) Mean Corpuscular Volume 93 FL (80-99) Mean Corpuscular Hemoglobin 31.8 PG (27.0-31.0) Mean Corpuscular Hemoglobin Concent 34.0 G/DL (32.0-36.0) Red Cell Distribution Width 13.6 % (11.6-14.8) Platelet Count 341 K/UL (150-450) Mean Platelet Volume 10.3 FL (6.5-10.1) Neutrophils (%) (Auto) % (45.0-75.0) Lymphocytes (%) (Auto) % (20.0-45.0) Monocytes (%) (Auto) % (1.0-10.0) Eosinophils (%) (Auto) % (0.0-3.0) Basophils (%) (Auto) % (0.0-2.0) Prothrombin Time 10.0 SEC (9.30-11.50) Prothromb Time International Ratio 0.9 (0.9-1.1) Activated Partial Thromboplast Time 26 SEC (23-33) Urine Color Yellow Urine Appearance Clear Urine pH 6 (4.5-8.0) Urine Specific David 1.020 (1.005-1.035) Urine Protein 1+ (NEGATIVE) Urine Glucose (UA) Negative (NEGATIVE) Urine Ketones 1+ (NEGATIVE) Urine Blood Negative (NEGATIVE) Urine Nitrite Negative (NEGATIVE) Urine Bilirubin Negative (NEGATIVE) Urine Urobilinogen 1 MG/DL (0.0-1.0) Urine Leukocyte Esterase 1+ (NEGATIVE) Urine RBC 0-2 /HPF (0 - 2) Urine WBC 2-4 /HPF (0 - 2) Urine Squamous Epithelial Cells Few /LPF (NONE/OCC) Urine Bacteria Few /HPF (NONE) Sodium Level 139 MMOL/L (136-145) Potassium Level 4.0 MMOL/L (3.5-5.1) Chloride Level 106 MMOL/L (98-107) Carbon Dioxide Level 25 MMOL/L (21-32) Anion Gap 8 mmol/L (5-15) Blood Urea Nitrogen 23 mg/dL (7-18) Creatinine 1.4 MG/DL (0.55-1.30) Estimat Glomerular Filtration Rate 46.1 mL/min (>60) Glucose Level 93 MG/DL (74-106) Calcium Level 9.3 MG/DL (8.5-10.1) Total Bilirubin 0.2 MG/DL (0.2-1.0) Aspartate Amino Transf (AST/SGOT) 32 U/L (15-37) Alanine Aminotransferase (ALT/SGPT) 31 U/L (12-78) Alkaline Phosphatase 70 U/L (46-116) Troponin I 0.000 ng/mL (0.000-0.056) Total Protein 8.2 G/DL (6.4-8.2) Albumin 3.4 G/DL (3.4-5.0) Globulin 4.8 g/dL Albumin/Globulin Ratio 0.7 (1.0-2.7) Lipase 145 U/L (73-393) Urine Opiates Screen Negative (NEGATIVE) Urine Barbiturates Screen Negative (NEGATIVE) Phencyclidine (PCP) Screen Negative (NEGATIVE) Urine Amphetamines Screen Negative (NEGATIVE) Urine Benzodiazepines Screen Negative (NEGATIVE) Urine Cocaine Screen Positive (NEGATIVE) Urine Marijuana (THC) Screen Negative (NEGATIVE) Serum Alcohol < 3 mg/dL EKG Diagnostic Results Rate: normal Rhythm: NSR ST Segments: no acute changes Last Vital Signs Date Time Temp Pulse Resp B/P (MAP) Pulse Ox O2 Delivery O2 Flow Rate FiO2 04/23/20 22:03 98.2 04/23/20 21:53 98 24 151/89 98 Room Air Status: improved Disposition: PLACE IN OBSERVATION Condition: Stable Referrals: NON PHYSICIAN (PCP) Celestino Hutchison MD Apr 23, 2020 22:46
[2020-04-23] MEDS ORDERED: LORazepam Inj 2mg/ml 1ml IV ONE (23:00)
[2020-04-23] MEDS ORDERED: Tubing IV Secondary IV ONE (23:22)
[2020-04-23] MEDS ORDERED: NS 275ml ONE (23:22)
--- NOTE | 2020-04-23 23:24 | NUR ---
ED Nurse Note: Spoke to MADELAINE Rutledge
--- NOTE | 2020-04-23 23:25 | NUR ---
ED Nurse Note: Rapid covid test sent
[2020-04-23] MEDS ORDERED: Zolpidem 5mg tab ORAL PRN (23:45)
[2020-04-23] MEDS ORDERED: Miralax 17gm pkt ORAL PRN (23:45)
[2020-04-23] MEDS ORDERED: HydrALAZINE 25mg tab ORAL PRN (23:45)
[2020-04-23] MEDS ORDERED: Mylanta II UD 30ml ORAL PRN (23:45)
[2020-04-23] MEDS ORDERED: Albuterol/Ipratropium 3ml neb HHN PRN (23:45)
[2020-04-23] MEDS ORDERED: Milk of Magnesia 30ml Ud ORAL PRN (23:45)
[2020-04-24] VITALS (7 sets, daily range): BP systolic 113–145; BP diastolic 69–82
--- NOTE | 2020-04-24 00:25 | NUR ---
ED Nurse Note: Report given to OLGA GILBERT
--- NOTE | 2020-04-24 00:30 | NUR ---
TRANSFER TO FLOOR: Patient transferred to TELE at rm 220 via gurney, with [employer] agent, accompanied by RN. Belongings checked and given to RN. Patient transferred safely to bed and endorsed to RN
--- NOTE | 2020-04-24 00:30 | NUR ---
NURSE NOTES: RECEIVED REPORT FROM OFELIA ABBOTT. PATIENT TRANSFERRED FROM ED TO [facility]-2 PER MD ORDER UNDER CARE OF DR. GARCIA WITH ADMITTING DIAGNOSIS OF ABDOMINAL PAIN/DIVERTICULITIS. PATIENT ABLE TO [facility]ULATE [facility] BED WITH STEADY GAIT NOTED. PATIENT IS AAOX4, VERBALLY RESPONSIVE AND ABLE TO MAKE NEEDS KNOWN. NO COMPLAINTS OF PAIN OR DISCOMFORT AT THIS TIME. BREATHING IS EVEN AND UNLABORED ON ROOM AIR, NO S/SX OF DISTRESS NOTED. PLACED ON CAUSTIC CRESYLATE SHIFT SUPERINTENDENT- SHOWING SINUS RHYTHM. IV SITE ON RIGHT HAND PATENT, INTACT, ASYMPTOMATIC. VERIFIED BELONGINGS WITH PATIENT- PATIENT HAS VISA CARD AND 25 CENTS IN HER POSSESSION AND REQUESTS TO KEEP THEM WITH HER AT BEDSIDE. CONFIRMED HOME MEDICATIONS WITH PATIENT. ORIENTED PATIENT TO UNIT, ROOM, CALL LIGHT, BED CONTROLS, AND REMOTE. INFORMED PATIENT SHE IS ON AN NPO DIET ORDERED BY MD- PATIENT VERBALIZED UNDERSTANDING. CALL LIGHT WITHIN REACH. WILL CONTINUE TO MONITOR PER POC.
[2020-04-24] MEDS: Piperacillin/Tazobactam 3.375 GM in NS 110 ML IVPB SCH ×3 (02:05→16:57)
[2020-04-24] MEDS: Enoxaparin 40mg Inj SUBQ SCH (02:10)
--- NOTE | 2020-04-24 05:09 | NUR ---
NURSE NOTES: PLACED CALL WITH RADHA WILKERSON S/W RICARDA, TO CLARIFY NOVOLOG ORDERS. PER PATIENT, SHE IS NOT DIABETIC/HAS NO HISTORY OF DM. AWAITING CALL BACK.
--- NOTE | 2020-04-24 05:11 | NUR ---
NURSE NOTES: PER DR. FALK, KARSON TO DISCONTINUE NOVOLOG SS. ORDER NOTED AND CARRIED OUT.
[2020-04-24] MEDS ORDERED: NovoLOG Insulin Flexpen SUBQ SCH (06:30)
--- NOTE | 2020-04-24 07:10 | NUR ---
NURSE NOTES: Received Pt report from OFELIA Hutton. Pt is stable and sleeping in bed. Pt on RA with no s/s or complaints of distress at this time. Pt R hand 20g running NS at 125cc/hr; asymptomatic and intact. Pt bed low and locked, call light in reach and bed alarm on. Pt verbalized understanding to call for help if needed.
--- NOTE | 2020-04-24 07:26 | NUR ---
NURSE HAND-OFF REPORT: Important Events on Shift: NEW ADMISSION Patient Status: STABLE Diet: NPO Pending Orders: N/A Pending Results/Labs: 04/24 AM LABS Pending MD notification: N/A Latest Vital Signs: Temperature 97.0 , Pulse 64 , B/P 138 /82 , Respiratory Rate 18 , O2 SAT 99 , Room Air, O2 Flow Rate . Vital Sign Comment: STABLE EKG Rhythm: Sinus Rhythm Rhythm change?: N MD Notified?: - MD Response: Latest Lowery Fall Score: 35 Fall Risk: Medium Risk Safety Measures: Call light Within Reach, Bed Alarm , Side Rails Side Rails x2, Bed position Low and Locked. Fall Precautions: Patient Fall Education Report given to OFELIA ELMORE.
[2020-04-24 07:54] LABS: HEMATOCRIT 40.1 % (37.0-47.0); HEMOGLOBIN 13.7 G/DL (12.0-16.0); MEAN CORPUSCULAR VOLUME 89 FL (80-99); PLATELET COUNT 230 K/UL (150-450); RED CELL DISTRIBUTION WIDTH 12.9 % (11.6-14.8); WHITE BLOOD COUNT 5.8 K/UL (4.8-10.8)
[2020-04-24] MEDS: Pantoprazole Inj IV SCH (08:37)
[2020-04-24 08:38] LABS: ALBUMIN 2.8 G/DL (3.4-5.0); ALBUMIN/GLOBULIN RATIO 0.7 (1.0-2.7); BILIRUBIN,TOTAL 0.3 MG/DL (0.2-1.0); CALCIUM 8.3 MG/DL (8.5-10.1); CREATININE 1.2 MG/DL (0.55-1.30); POTASSIUM 4.2 MMOL/L (3.5-5.1)
--- NOTE | 2020-04-24 09:06 | History and Physical ---
History of Present Illness General Date patient seen: Apr 24, 2020 Reason for Hospitalization: Abdominal Pain Present Illness HPI Patient is a pleasant 64 year old female with past medical history of HTN, HLD, gastritis, irritable bowel syndrome, recurrent small bowel obstruction and diverticulitis who presented to the emergency department c/o abdominal pain, vomiting, unable to hold food down. Her vomitus is nonbloody nonbilious. She is also complaining of loose stools. Abdominal pain is diffuse, constant, and sharp. No radiation. Patient denies chest pain, sob, palpitations. She has had no recent travel or sick contacts. Denies urinary symptoms. Denies headache, weakness, visual changes. Patient previously admitted to [facility] for partial small bowel obstruction. PMH: HTN, HLD, gastritis, irritable bowel syndrome, recurrent small bowel obstruction and diverticulitis PSH: cholecystectomy Social history: Illicit drug use including cocaine Family history: No family history of colon cancer In the ER CT imaging showed no evidence of bowel obstruction. Possible minimal early diverticulitis involving the proximal sigmoid colon, no perforation or abscess. Recommend correlation with colonoscopy to exclude infiltrative neoplasm. Moderate colonic stool burden. Basilar lung findings suggesting interstitial lung disease. She was noted to have urine drug screen which is positive for cocaine. EKG sh owed normal sinus rhythm with a rate of [address] or T wave changes consistent with myocardial ischemia. Patient was given IV Ativan. She started on IV fluids and admitted Allergies: Coded Allergies: CIMETIDINE (Verified Allergy, Unknown, 04/25/19) IODINATED CONTRAST MEDIA (Verified Allergy, Unknown, 04/25/19) Uncoded Allergies: IDODINE (Allergy, Unknown, 04/25/19) COVID-19 Screening Contact w/high risk pt: No Experienced COVID-19 symptoms?: No Coronavirus symptoms experienc: Nausea/Vomiting Medication History Scheduled Ciprofloxacin* (Cipro*), 500 MG PO BID Metronidazole* (Flagyl*), 500 MG ORAL BID Scheduled PRN Acetaminophen* (Tylenol Extra Strength*), 500 MG ORAL Q8H PRN for Prn Headache/Temp > 101 Ondansetron (Zofran), 4 MG ORAL Q6H PRN for Nausea & Vomiting Patient History Healthcare decision maker Resuscitation status Advanced Directive on File Review of Systems Constitutional: Denies: no symptoms, see HPI, chills, sweats, fever, malaise, weakness, other Eye: Denies: no symptoms, see HPI, eye pain, blurred vision, tearing, double vision, nose pain, nose congestion, acuity changes, discharge, other ENT: Denies: no symptoms, see HPI, ear pain, ear discharge, nose pain, nose congestion, throat pain, throat swelling, mouth pain, hearing loss, nasal discharge, other Respiratory: Denies: no symptoms, see HPI, cough, orthopnea, shortness of breath, stridor, wheezing, HOPE, sputum, other Cardiovascular: Denies: no symptoms, see HPI, chest pain, edema, palpitations, syncope, PND, other Gastrointestinal: Reports: see HPI, abdominal pain, diarrhea, nausea, vomiting Genitourinary: Denies: no symptoms, see HPI, discharge, dysuria, frequency, hematuria, pain, retention, incontinence, urgency, vag bleed/dc, other Musculoskeletal: Denies: no symptoms, see HPI, back pain, gout, joint pain, joint swelling, muscle pain, muscle stiffness, other Skin: Denies: no symptoms, see HPI, rash, change in color, change in hair/nails, dryness, lesions, other Psychiatric: Denies: no symptoms, see HPI, prior hx, anxiety, depressed feelings, emotional problems, SI, HI, hallucinations, other Neurological: Denies: no symptoms, see HPI, headache, numbness, paresthesia, seizure, tingling, tremors, focal weakness, syncope, dizziness, other Endocrine: Denies: no symptoms, see HPI, excessive sweating, flushing, intolerance to temperature, increased thirst, increased urine, unexplained weight loss, other Hematologic/Lymphatic: Denies: no symptoms, see HPI, anemia, blood clots, easy bleeding, easy bruising, swollen glands, diathesis, other Physical Exam General Appearance: WD/WN, no apparent distress, alert Lines, tubes and drains: peripheral HEENT: normocephalic, atraumatic, anicteric, PERRL, EOMI, other - dry MM Neck: non-tender, normal alignment, supple Respiratory/Chest: chest wall non-tender, lungs clear, normal breath sounds, no respiratory distress Cardiovascular/Chest: normal peripheral pulses, normal rate, regular rhythm Abdomen: normal bowel sounds, soft, no organomegaly, no mass, abnormal bowel sounds, tender - epigastric Extremities: normal range of motion, non-tender, no calf tenderness, no edema Neurologic: chief engineer II-XII grossly normal, no motor/sensory deficits, alert, oriented x 3, responsive Musculoskeletal: normal muscle bulk Last 24 Hour Vital Signs Date Time Temp Pulse Resp B/P (MAP) Pulse Ox O2 Delivery O2 Flow Rate FiO2 04/24/20 08:00 96.9 58 18 113/69 (84) 95 04/24/20 04:00 64 04/24/20 04:00 97.0 64 18 138/82 (100) 99 04/24/20 01:17 Room Air 04/24/20 01:00 67 04/24/20 00:39 98.2 24 151/89 98 Room Air 04/24/20 00:30 97.6 67 18 143/82 (102) 99 04/24/20 00:00 98.2 78 20 138/78 98 Room Air 04/23/20 22:03 98.2 04/23/20 21:53 98.2 98 24 151/89 98 Room Air 04/23/20 21:53 98 24 Room Air 04/23/20 21:08 98.2 100 24 151/89 (109) 98 Room Air Intake and Output 04/23/20 04/24/20 19:00 07:00 Intake Total 777.1 ml Balance 777.1 ml Intake IV Total 777.1 ml # Voids 1 Laboratory Tests Test 04/23/20 21:30 04/23/20 22:10 04/24/20 07:10 White Blood Count 8.8 K/UL (4.8-10.8) 5.8 K/UL (4.8-10.8) Red Blood Count 5.21 M/UL (4.20-5.40) 4.50 M/UL (4.20-5.40) Hemoglobin 16.6 G/DL (12.0-16.0) H 13.7 G/DL (12.0-16.0) Hematocrit 48.7 % (37.0-47.0) H 40.1 % (37.0-47.0) Mean Corpuscular Volume 93 FL (80-99) 89 FL (80-99) Mean Corpuscular Hemoglobin 31.8 PG (27.0-31.0) H 30.4 PG (27.0-31.0) Mean Corpuscular Hemoglobin Concent 34.0 G/DL (32.0-36.0) 34.2 G/DL (32.0-36.0) Red Cell Distribution Width 13.6 % (11.6-14.8) 12.9 % (11.6-14.8) Platelet Count 341 K/UL (150-450) 230 K/UL (150-450) Mean Platelet Volume 10.3 FL (6.5-10.1) H 8.2 FL (6.5-10.1) Neutrophils (%) (Auto) % (45.0-75.0) % (45.0-75.0) Lymphocytes (%) (Auto) % (20.0-45.0) % (20.0-45.0) Monocytes (%) (Auto) % (1.0-10.0) % (1.0-10.0) Eosinophils (%) (Auto) % (0.0-3.0) % (0.0-3.0) Basophils (%) (Auto) % (0.0-2.0) % (0.0-2.0) Differential Total Cells Counted 100 Neutrophils % (Manual) 41 % (45-75) L Pending Lymphocytes % (Manual) 51 % (20-45) H Pending Monocytes % (Manual) 4 % (1-10) Eosinophils % (Manual) 4 % (0-3) H Basophils % (Manual) 0 % (0-2) Band Neutrophils 0 % (0-8) Platelet Estimate Adequate Pending Platelet Morphology Normal Pending Red Blood Cell Morphology Normal Prothrombin Time 10.0 SEC (9.30-11.50) Prothromb Time International Ratio 0.9 (0.9-1.1) Activated Partial Thromboplast Time 26 SEC (23-33) Urine Color Yellow Urine Appearance Clear Urine pH 6 (4.5-8.0) Urine Specific [place] 1.020 (1.005-1.035) Urine Protein 1+ (NEGATIVE) H Urine Glucose (UA) Negative (NEGATIVE) Urine Ketones 1+ (NEGATIVE) H Urine Blood Negative (NEGATIVE) Urine Nitrite Negative (NEGATIVE) Urine Bilirubin Negative (NEGATIVE) Urine Urobilinogen 1 MG/DL (0.0-1.0) H Urine Leukocyte Esterase 1+ (NEGATIVE) H Urine RBC 0-2 /HPF (0 - 2) Urine WBC 2-4 /HPF (0 - 2) Urine Squamous Epithelial Cells Few /LPF (NONE/OCC) Urine Bacteria Few /HPF (NONE) Sodium Level 139 MMOL/L (136-145) 142 MMOL/L (136-145) Potassium Level 4.0 MMOL/L (3.5-5.1) 4.2 MMOL/L (3.5-5.1) Chloride Level 106 MMOL/L (98-107) 110 MMOL/L (98-107) H Carbon Dioxide Level 25 MMOL/L (21-32) 22 MMOL/L (21-32) Anion Gap 8 mmol/L (5-15) 10 mmol/L (5-15) Blood Urea Nitrogen 23 mg/dL (7-18) H 19 mg/dL (7-18) H Creatinine 1.4 MG/DL (0.55-1.30) H 1.2 MG/DL (0.55-1.30) Estimat Glomerular Filtration Rate 46.1 mL/min (>60) 54.9 mL/min (>60) Glucose Level 93 MG/DL (74-106) 102 MG/DL (74-106) Calcium Level 9.3 MG/DL (8.5-10.1) 8.3 MG/DL (8.5-10.1) L Total Bilirubin 0.2 MG/DL (0.2-1.0) 0.3 MG/DL (0.2-1.0) Aspartate Amino Transf (AST/SGOT) 32 U/L (15-37) 28 U/L (15-37) Alanine Aminotransferase (ALT/SGPT) 31 U/L (12-78) 29 U/L (12-78) Alkaline Phosphatase 70 U/L (46-116) 55 U/L (46-116) Troponin I 0.000 ng/mL (0.000-0.056) Total Protein 8.2 G/DL (6.4-8.2) 6.7 G/DL (6.4-8.2) Albumin 3.4 G/DL (3.4-5.0) 2.8 G/DL (3.4-5.0) L Globulin 4.8 g/dL 3.9 g/dL Albumin/Globulin Ratio 0.7 (1.0-2.7) L 0.7 (1.0-2.7) L Lipase 145 U/L (73-393) Urine Opiates Screen Negative (NEGATIVE) Urine Barbiturates Screen Negative (NEGATIVE) Phencyclidine (PCP) Screen Negative (NEGATIVE) Urine Amphetamines Screen Negative (NEGATIVE) Urine Benzodiazepines Screen Negative (NEGATIVE) Urine Cocaine Screen Positive (NEGATIVE) H Urine Marijuana (THC) Screen Negative (NEGATIVE) Serum Alcohol < 3 mg/dL Microbiology Date/Time Source Procedure Growth Status 04/23/20 22:30 Nasopharynx SARS-CoV-2 RdRp Gene Assay - Final Complete Height (Feet): 5 Height (Inches): 4.00 Weight (Pounds): 219 Medications Current Medications Medications (Trade) Dose Ordered Sig/Brian Route PRN Reason Start Time Stop Time Status Last Admin Dose Admin Acetaminophen (Tylenol) 650 mg Q4H PRN ORAL Mild Pain (Pain Scale 1-3) 04/23/20 23:45 05/23/20 23:44 Acetaminophen (Tylenol) 650 mg Q4H PRN ORAL Temp >100.5 04/23/20 23:45 05/23/20 23:44 Al Hydroxide/Mg Hydroxide (Mylanta II) 30 ml Q6H PRN ORAL dyspepsia 04/23/20 23:45 05/23/20 23:44 Albuterol/ Ipratropium (Albuterol/ Ipratropium) 3 ml Q4H PRN HHN Shortness of Breath 04/23/20 23:45 04/28/20 23:44 Bisacodyl (Dulcolax) 10 mg HSPRN PRN RECTAL Constipation 04/23/20 23:45 07/22/20 23:44 Dextrose (Dextrose 50%) 25 ml Q30M PRN IV Hypoglycemia 04/23/20 23:45 07/22/20 23:44 Dextrose (Dextrose 50%) 50 ml Q30M PRN IV Hypoglycemia 04/23/20 23:45 07/22/20 23:44 Diphenhydramine HCl (Benadryl) 25 mg Q6H PRN ORAL Itching/Pruritis 04/23/20 23:45 05/23/20 23:44 Enoxaparin Sodium (Lovenox) 40 mg Q24H SUBQ 04/24/20 02:00 07/23/20 01:59 04/24/20 02:10 Hydralazine HCl (Apresoline) 25 mg Q6H PRN ORAL htn 04/23/20 23:45 07/22/20 23:44 Hydromorphone HCl (Dilaudid) 1 mg Q6H PRN IVP Moderate Pain (Pain Scale 4-6) 04/23/20 23:45 04/30/20 23:44 Hydromorphone HCl (Dilaudid) 2 mg Q6H PRN IVP Severe Pain (Pain Scale 7-10) 04/23/20 23:45 04/30/20 23:44 04/24/20 04:47 Magnesium Hydroxide (Mom) 30 ml HSPRN PRN ORAL Constipation 04/23/20 23:45 05/23/20 23:44 Ondansetron HCl (Zofran) 4 mg Q4H PRN IVP Nausea & Vomiting 04/23/20 23:45 05/23/20 23:44 Pantoprazole (Protonix) 40 mg DAILY IV 04/24/20 09:00 05/24/20 08:59 04/24/20 08:37 Piperacillin Sod/ Tazobactam Sod 3.375 gm/Sodium Chloride 110 ml @ 27.5 mls/hr Q8H IVPB 04/24/20 02:00 05/01/20 01:59 04/24/20 02:05 Polyethylene Glycol (Miralax) 17 gm HSPRN PRN ORAL Constipation 04/23/20 23:45 05/23/20 23:44 Sodium Chloride 1,000 ml @ 125 mls/hr Q8H IVLG 04/24/20 00:45 05/24/20 00:44 04/24/20 08:37 Temazepam (Restoril) 15 mg HSPRN PRN ORAL Insomnia 04/23/20 23:45 04/30/20 23:44 Zolpidem Tartrate (Ambien) 5 mg HSPRN PRN ORAL Insomnia 04/23/20 23:45 04/30/20 23:44 Assessment/Plan Problem List: (1) Diverticulitis ICD Codes: K57.92 - Diverticulitis of intestine, part unspecified, without perforation or abscess without bleeding SNOMED: 753940003 (2) Constipation ICD Codes: K59.00 - Constipation, unspecified SNOMED: 74942960 (3) Abdominal pain ICD Codes: R10.9 - Unspecified abdominal pain SNOMED: 10266956 (4) HTN (hypertension) ICD Codes: I10 - Essential (primary) hypertension SNOMED: 87473246 (5) Cocaine abuse ICD Codes: F14.10 - Cocaine abuse, uncomplicated SNOMED: 00802113 (6) HLD (hyperlipidemia) ICD Codes: E78.5 - Hyperlipidemia, unspecified SNOMED: 83661407 Status: stable Assessment/Plan: 64 year old female with HTN, HLD, history of sbo, presented with n/v/d and abdominal pain. #Abdominal pain #Diverticulitis #Constipation #cocaine abuse- ? ischemic colitis #Dehydration Admit IVF bowel regimen NPO GI consult Surgical consult patient counselled to stop cocaine however she denies cocaine use #NANCY ctm renal consult to worse ivf I spent 70 minutes on this encounter. 35 minutes spent on counselling and care cooridnation. Mann Nichols M.D. Apr 24, 2020 09:06
--- NOTE | 2020-04-24 10:30 | NUR ---
NURSE NOTES: During Pt hourly rounding, pt reported that the IV site "kind of hurt", some constant stinging. New IV started on L hand 22g, asymptomatic and patent. IV on R hand removed, catheter intact. Pt tolerated well. Addendum: 04/24/20 at 1437 by Shaunna Garcia RN RN 1100: rounding on Pt, found Pt sleep on top of L hand with catheter long-term out. Pt states "must have slept a little too comfortably" IV discontinued at this time, catheter intact. New IV inserted on the R hand 22g running NS and zosyn, asymptiomatic and intact. pt tolerated well.
--- NOTE | 2020-04-24 10:36 | General Progress Note ---
Subjective ROS Limited/Unobtainable: Yes Allergies: Coded Allergies: CIMETIDINE (Verified Allergy, Unknown, 04/25/19) IODINATED CONTRAST MEDIA (Verified Allergy, Unknown, 04/25/19) Uncoded Allergies: IDODINE (Allergy, Unknown, 04/25/19) Objective Last 24 Hour Vital Signs Date Time Temp Pulse Resp B/P (MAP) Pulse Ox O2 Delivery O2 Flow Rate FiO2 04/24/20 08:00 96.9 58 18 113/69 (84) 95 04/24/20 08:00 57 04/24/20 04:00 64 04/24/20 04:00 97.0 64 18 138/82 (100) 99 04/24/20 01:17 Room Air 04/24/20 01:00 67 04/24/20 00:39 98.2 24 151/89 98 Room Air 04/24/20 00:30 97.6 67 18 143/82 (102) 99 04/24/20 00:00 98.2 78 20 138/78 98 Room Air 04/23/20 22:03 98.2 04/23/20 21:53 98.2 98 24 151/89 98 Room Air 04/23/20 21:53 98 24 Room Air 04/23/20 21:08 98.2 100 24 151/89 (109) 98 Room Air Intake and Output 04/23/20 04/24/20 19:00 07:00 Intake Total 777.1 ml Balance 777.1 ml Intake IV Total 777.1 ml # Voids 1 Laboratory Tests 04/23/20 21:30: White Blood Count 8.8, Red Blood Count 5.21, Hemoglobin 16.6H, Hematocrit 48.7H, Mean Corpuscular Volume 93, Mean Corpuscular Hemoglobin 31.8H, Mean Corpuscular Hemoglobin Concent 34.0, Red Cell Distribution Width 13.6, Platelet Count 341, Mean Platelet Volume 10.3H, Neutrophils (%) (Auto) , Lymphocytes (%) (Auto) , Monocytes (%) (Auto) , Eosinophils (%) (Auto) , Basophils (%) (Auto) , Differential Total Cells Counted 100, Neutrophils % (Manual) 41L, Lymphocytes % (Manual) 51H, Monocytes % (Manual) 4, Eosinophils % (Manual) 4H, Basophils % (Manual) 0, Band Neutrophils 0, Platelet Estimate Adequate, Platelet Morphology Normal, Red Blood Cell Morphology Normal, Prothrombin Time 10.0, Prothromb Time International Ratio 0.9, Activated Partial Thromboplast Time 26 04/23/20 22:10: Urine Color Yellow, Urine Appearance Clear, Urine pH 6, Urine Specific [place] 1.020, Urine Protein 1+H, Urine Glucose (UA) Negative, Urine Ketones 1+H, Urine Blood Negative, Urine Nitrite Negative, Urine Bilirubin Negative, Urine Urobilinogen 1H, Urine Leukocyte Esterase 1+H, Urine RBC 0-2, Urine WBC 2-4, Urine Squamous Epithelial Cells Few, Urine Bacteria Few, Sodium Level 139, Potassium Level 4.0, Chloride Level 106, Carbon Dioxide Level 25, Anion Gap 8, Blood Urea Nitrogen 23H, Creatinine 1.4H, Estimat Glomerular Filtration Rate 46.1, Glucose Level 93, Calcium Level 9.3, Total Bilirubin 0.2, Aspartate Amino Transf (AST/SGOT) 32, Alanine Aminotransferase (ALT/SGPT) 31, Alkaline Phosphatase 70, Troponin I 0.000, Total Protein 8.2, Albumin 3.4, Globulin 4.8, Albumin/Globulin Ratio 0.7L, Lipase 145, Urine Opiates Screen Negative, Urine Barbiturates Screen Negative, Phencyclidine (PCP) Screen Negative, Urine Amphetamines Screen Negative, Urine Benzodiazepines Screen Negative, Urine Cocaine Screen PositiveH, Urine Marijuana (THC) Screen Negative, Serum Alcohol < 3 04/24/20 07:10: White Blood Count 5.8, Red Blood Count 4.50, Hemoglobin 13.7, Hematocrit 40.1, Mean Corpuscular Volume 89, Mean Corpuscular Hemoglobin 30.4, Mean Corpuscular Hemoglobin Concent 34.2, Red Cell Distribution Width 12.9, Platelet Count 230, Mean Platelet Volume 8.2, Neutrophils (%) (Auto) , Lymphocytes (%) (Auto) , Monocytes (%) (Auto) , Eosinophils (%) (Auto) , Basophils (%) (Auto) , Differential Total Cells Counted 100, Neutrophils % (Manual) 27L, Lymphocytes % (Manual) 60H, Monocytes % (Manual) 8, Eosinophils % (Manual) 5H, Basophils % (Manual) 0, Band Neutrophils 0, Platelet Estimate Adequate, Platelet Morphology Normal, Red Blood Cell Morphology Normal, Sodium Level 142, Potassium Level 4.2, Chloride Level 110H, Carbon Dioxide Level 22, Anion Gap 10, Blood Urea Nitrogen 19H, Creatinine 1.2, Estimat Glomerular Filtration Rate 54.9, Glucose Level 102, Calcium Level 8.3L, Total Bilirubin 0.3, Aspartate Amino Transf (AST/SGOT) 28, Alanine Aminotransferase (ALT/SGPT) 29, Alkaline Phosphatase 55, Total Protein 6.7, Albumin 2.8L, Globulin 3.9, Albumin/Globulin Ratio 0.7L Height (Feet): 5 Height (Inches): 4.00 Weight (Pounds): 219 General Appearance: alert EENT: normal ENT inspection Neck: supple Cardiovascular: normal rate Respiratory/Chest: decreased breath sounds Abdomen: soft, hypoactive bowel sounds, tender Extremities: non-tender Assessment/Plan Problem List: (1) Constipation ICD Codes: K59.00 - Constipation, unspecified SNOMED: 36773229 (2) Abdominal pain ICD Codes: R10.9 - Unspecified abdominal pain SNOMED: 92502825 (3) Diverticulitis ICD Codes: K57.92 - Diverticulitis of intestine, part unspecified, without perforation or abscess without bleeding SNOMED: 426465979 (4) Cocaine abuse ICD Codes: F14.10 - Cocaine abuse, uncomplicated SNOMED: 69322312 Assessment/Plan: abx needs out patient colonoscopy in 8 weeks bowel regimen advance diet Ralph Hartley MD Apr 24, 2020 10:36
--- NOTE | 2020-04-24 14:29 | Consultation ---
History of Present Illness General Date patient seen: Apr 24, 2020 Reason for Hospitalization: Abdominal Pain Present Illness HPI This is a 64-year-old female well-known to me from prior admissions who has had recurrent abdominal pain potential bowel obstructions in the past last seen July 2019 with potential SBO resolved without intervention history of cholecystectomy presented with acute abdominal pain cramping generalized intermittent nausea no emesis passing flatus and bowel movement. CT performed identified colitis surgery called to evaluate and assist with care. Patient seen, patient evaluate, chart reviewed Allergies: Coded Allergies: CIMETIDINE (Verified Allergy, Unknown, 04/25/19) IODINATED CONTRAST MEDIA (Verified Allergy, Unknown, 04/25/19) Uncoded Allergies: IDODINE (Allergy, Unknown, 04/25/19) COVID-19 Screening Contact w/high risk pt: No Experienced COVID-19 symptoms?: No Coronavirus symptoms experienc: Nausea/Vomiting Medication History Scheduled Ciprofloxacin* (Cipro*), 500 MG PO BID Metronidazole* (Flagyl*), 500 MG ORAL BID Scheduled PRN Acetaminophen* (Tylenol Extra Strength*), 500 MG ORAL Q8H PRN for Prn Headache/Temp > 101 Ondansetron (Zofran), 4 MG ORAL Q6H PRN for Nausea & Vomiting Patient History History Provided By: Patient, Medical Record Healthcare decision maker Resuscitation status Advanced Directive on File Past Medical/Surgical History Past Medical/Surgical History: (1) Osteoarthritis (2) Contusion of left knee (3) Contusion of left shoulder (4) Back contusion (5) Multiple injuries due to trauma (6) Constipation (7) Cocaine abuse (8) Diverticulitis (9) Abdominal pain Review of Systems Review of Symptoms General ROS: no weight loss or fever Psychological ROS: no depression or mood changes, no memory loss Ophthalmic ROS: no visual changes or eye irritation ENT ROS: no nasal congestion, hearing loss, dizziness Allergy and Immunology ROS: no allergic symptoms or urticaria Hematological and Lymphatic ROS: no swollen glands, unusual bleeding or bruising Endocrine ROS: no polyuria, polydipsia, weight changes, temperature intolerance Respiratory ROS: no cough, shortness of breath, or wheezing Cardiovascular ROS: no chest pain or dyspnea on exertion Gastrointestinal ROS: denies abdominal pain, bright red blood in stool. Musculoskeletal ROS: no myalgias or arthralgias Neurological ROS: no TIA or stroke symptoms Dermatological ROS: no new or changing skin lesions, rashes or pruritis Physical Exam Physical Exam General appearance: alert, cooperative, no distress, appears stated age Head: Normocephalic, without obvious abnormality, atraumatic Eyes: conjunctivae/corneas clear. PERRL, EOM's intact. Fundi benign Throat: Lips, mucosa, and tongue normal. Teeth and gums normal Neck: supple, symmetrical, trachea midline, no adenopathy, thyroid: not enlarged, symmetric, no tenderness/mass/nodules, no carotid bruit and no JVD Lungs: clear to auscultation bilaterally Heart: regular rate and rhythm, S1, S2 normal, no murmur, click, rub or gallop Abdomen: soft, non-tender. Bowel sounds normal. No masses, no organomegaly Extremities: extremities normal, atraumatic, no cyanosis or edema Pulses: 2+ and symmetric Skin: Skin color, texture, turgor normal. No rashes or lesions Neurologic: Grossly normal Last 24 Hour Vital Signs Date Time Temp Pulse Resp B/P (MAP) Pulse Ox O2 Delivery O2 Flow Rate FiO2 04/24/20 12:00 96.9 58 20 134/74 (94) 95 04/24/20 12:00 57 04/24/20 11:17 96.9 04/24/20 09:00 Room Air 04/24/20 08:00 96.9 58 18 113/69 (84) 95 04/24/20 08:00 57 04/24/20 04:00 64 04/24/20 04:00 97.0 64 18 138/82 (100) 99 04/24/20 01:17 Room Air 04/24/20 01:00 67 04/24/20 00:39 98.2 24 151/89 98 Room Air 04/24/20 00:30 97.6 67 18 143/82 (102) 99 04/24/20 00:00 98.2 78 20 138/78 98 Room Air 04/23/20 22:03 98.2 04/23/20 21:53 98.2 98 24 151/89 98 Room Air 04/23/20 21:53 98 24 Room Air 04/23/20 21:08 98.2 100 24 151/89 (109) 98 Room Air Intake and Output 04/23/20 04/24/20 19:00 07:00 Intake Total 777.1 ml Balance 777.1 ml IV Total 777.1 ml # Voids 1 Laboratory Tests Test 04/23/20 21:30 04/23/20 22:10 04/24/20 07:10 White Blood Count 8.8 K/UL (4.8-10.8) 5.8 K/UL (4.8-10.8) Red Blood Count 5.21 M/UL (4.20-5.40) 4.50 M/UL (4.20-5.40) Hemoglobin 16.6 G/DL (12.0-16.0) H 13.7 G/DL (12.0-16.0) Hematocrit 48.7 % (37.0-47.0) H 40.1 % (37.0-47.0) Mean Corpuscular Volume 93 FL (80-99) 89 FL (80-99) Mean Corpuscular Hemoglobin 31.8 PG (27.0-31.0) H 30.4 PG (27.0-31.0) Mean Corpuscular Hemoglobin Concent 34.0 G/DL (32.0-36.0) 34.2 G/DL (32.0-36.0) Red Cell Distribution Width 13.6 % (11.6-14.8) 12.9 % (11.6-14.8) Platelet Count 341 K/UL (150-450) 230 K/UL (150-450) Mean Platelet Volume 10.3 FL (6.5-10.1) H 8.2 FL (6.5-10.1) Neutrophils (%) (Auto) % (45.0-75.0) % (45.0-75.0) Lymphocytes (%) (Auto) % (20.0-45.0) % (20.0-45.0) Monocytes (%) (Auto) % (1.0-10.0) % (1.0-10.0) Eosinophils (%) (Auto) % (0.0-3.0) % (0.0-3.0) Basophils (%) (Auto) % (0.0-2.0) % (0.0-2.0) Differential Total Cells Counted 100 100 Neutrophils % (Manual) 41 % (45-75) L 27 % (45-75) L Lymphocytes % (Manual) 51 % (20-45) H 60 % (20-45) H Monocytes % (Manual) 4 % (1-10) 8 % (1-10) Eosinophils % (Manual) 4 % (0-3) H 5 % (0-3) H Basophils % (Manual) 0 % (0-2) 0 % (0-2) Band Neutrophils 0 % (0-8) 0 % (0-8) Platelet Estimate Adequate Adequate Platelet Morphology Normal Normal Red Blood Cell Morphology Normal Normal Prothrombin Time 10.0 SEC (9.30-11.50) Prothromb Time International Ratio 0.9 (0.9-1.1) Activated Partial Thromboplast Time 26 SEC (23-33) Urine Color Yellow Urine Appearance Clear Urine pH 6 (4.5-8.0) Urine Specific [place] 1.020 (1.005-1.035) Urine Protein 1+ (NEGATIVE) H Urine Glucose (UA) Negative (NEGATIVE) Urine Ketones 1+ (NEGATIVE) H Urine Blood Negative (NEGATIVE) Urine Nitrite Negative (NEGATIVE) Urine Bilirubin Negative (NEGATIVE) Urine Urobilinogen 1 MG/DL (0.0-1.0) H Urine Leukocyte Esterase 1+ (NEGATIVE) H Urine RBC 0-2 /HPF (0 - 2) Urine WBC 2-4 /HPF (0 - 2) Urine Squamous Epithelial Cells Few /LPF (NONE/OCC) Urine Bacteria Few /HPF (NONE) Sodium Level 139 MMOL/L (136-145) 142 MMOL/L (136-145) Potassium Level 4.0 MMOL/L (3.5-5.1) 4.2 MMOL/L (3.5-5.1) Chloride Level 106 MMOL/L (98-107) 110 MMOL/L (98-107) H Carbon Dioxide Level 25 MMOL/L (21-32) 22 MMOL/L (21-32) Anion Gap 8 mmol/L (5-15) 10 mmol/L (5-15) Blood Urea Nitrogen 23 mg/dL (7-18) H 19 mg/dL (7-18) H Creatinine 1.4 MG/DL (0.55-1.30) H 1.2 MG/DL (0.55-1.30) Estimat Glomerular Filtration Rate 46.1 mL/min (>60) 54.9 mL/min (>60) Glucose Level 93 MG/DL (74-106) 102 MG/DL (74-106) Calcium Level 9.3 MG/DL (8.5-10.1) 8.3 MG/DL (8.5-10.1) L Total Bilirubin 0.2 MG/DL (0.2-1.0) 0.3 MG/DL (0.2-1.0) Aspartate Amino Transf (AST/SGOT) 32 U/L (15-37) 28 U/L (15-37) Alanine Aminotransferase (ALT/SGPT) 31 U/L (12-78) 29 U/L (12-78) Alkaline Phosphatase 70 U/L (46-116) 55 U/L (46-116) Troponin I 0.000 ng/mL (0.000-0.056) Total Protein 8.2 G/DL (6.4-8.2) 6.7 G/DL (6.4-8.2) Albumin 3.4 G/DL (3.4-5.0) 2.8 G/DL (3.4-5.0) L Globulin 4.8 g/dL 3.9 g/dL Albumin/Globulin Ratio 0.7 (1.0-2.7) L 0.7 (1.0-2.7) L Lipase 145 U/L (73-393) Urine Opiates Screen Negative (NEGATIVE) Urine Barbiturates Screen Negative (NEGATIVE) Phencyclidine (PCP) Screen Negative (NEGATIVE) Urine Amphetamines Screen Negative (NEGATIVE) Urine Benzodiazepines Screen Negative (NEGATIVE) Urine Cocaine Screen Positive (NEGATIVE) H Urine Marijuana (THC) Screen Negative (NEGATIVE) Serum Alcohol < 3 mg/dL Microbiology Date/Time Source Procedure Growth Status 04/23/20 22:30 Nasopharynx SARS-CoV-2 RdRp Gene Assay - Final Complete Height (Feet): 5 Height (Inches): 4.00 Weight (Pounds): 219 Medications Current Medications Medications (Trade) Dose Ordered Sig/Brian Route PRN Reason Start Time Stop Time Status Last Admin Dose Admin Acetaminophen (Tylenol) 650 mg Q4H PRN ORAL Mild Pain (Pain Scale 1-3) 04/23/20 23:45 05/23/20 23:44 Acetaminophen (Tylenol) 650 mg Q4H PRN ORAL Temp >100.5 04/23/20 23:45 05/23/20 23:44 Al Hydroxide/Mg Hydroxide (Mylanta II) 30 ml Q6H PRN ORAL dyspepsia 04/23/20 23:45 05/23/20 23:44 Albuterol/ Ipratropium (Albuterol/ Ipratropium) 3 ml Q4H PRN HHN Shortness of Breath 04/23/20 23:45 04/28/20 23:44 Bisacodyl (Dulcolax) 10 mg HSPRN PRN RECTAL Constipation 04/23/20 23:45 07/22/20 23:44 Dextrose (Dextrose 50%) 25 ml Q30M PRN IV Hypoglycemia 04/23/20 23:45 07/22/20 23:44 Dextrose (Dextrose 50%) 50 ml Q30M PRN IV Hypoglycemia 04/23/20 23:45 07/22/20 23:44 Diphenhydramine HCl (Benadryl) 25 mg Q6H PRN ORAL Itching/Pruritis 04/23/20 23:45 05/23/20 23:44 Docusate Sodium (Colace) 100 mg TWICE A DAY ORAL 04/24/20 18:00 05/24/20 17:59 Enoxaparin Sodium (Lovenox) 40 mg Q24H SUBQ 04/24/20 02:00 07/23/20 01:59 04/24/20 02:10 Hydralazine HCl (Apresoline) 25 mg Q6H PRN ORAL htn 04/23/20 23:45 07/22/20 23:44 Hydromorphone HCl (Dilaudid) 1 mg Q6H PRN IVP Moderate Pain (Pain Scale 4-6) 04/23/20 23:45 04/30/20 23:44 Hydromorphone HCl (Dilaudid) 2 mg Q6H PRN IVP Severe Pain (Pain Scale 7-10) 04/23/20 23:45 04/30/20 23:44 04/24/20 10:35 Lactulose (Cephulac) 20 gm BID ORAL 04/24/20 18:00 05/24/20 17:59 Magnesium Hydroxide (Mom) 30 ml HSPRN PRN ORAL Constipation 04/23/20 23:45 05/23/20 23:44 Ondansetron HCl (Zofran) 4 mg Q4H PRN IVP Nausea & Vomiting 04/23/20 23:45 05/23/20 23:44 04/24/20 10:35 Pantoprazole (Protonix) 40 mg DAILY IV 04/24/20 09:00 05/24/20 08:59 04/24/20 08:37 Piperacillin Sod/ Tazobactam Sod 3.375 gm/Sodium Chloride 110 ml @ 27.5 mls/hr Q8H IVPB 04/24/20 02:00 05/01/20 01:59 04/24/20 10:35 Polyethylene Glycol (Miralax) 17 gm HSPRN PRN ORAL Constipation 04/23/20 23:45 05/23/20 23:44 Sodium Chloride 1,000 ml @ 125 mls/hr Q8H IVLG 04/24/20 00:45 05/24/20 00:44 04/24/20 08:37 Temazepam (Restoril) 15 mg HSPRN PRN ORAL Insomnia 04/23/20 23:45 04/30/20 23:44 Zolpidem Tartrate (Ambien) 5 mg HSPRN PRN ORAL Insomnia 04/23/20 23:45 04/30/20 23:44 Assessment/Plan Problem List: (1) Constipation ICD Codes: K59.00 - Constipation, unspecified SNOMED: 22962684 (2) Cocaine abuse ICD Codes: F14.10 - Cocaine abuse, uncomplicated SNOMED: 18817736 (3) Diverticulitis ICD Codes: K57.92 - Diverticulitis of intestine, part unspecified, without perforation or abscess without bleeding SNOMED: 819097886 (4) Abdominal pain Assessment & Plan: Patient presents recurrent abdominal pain without radiation with associated nausea, no emesis. Afebrile, hemodynamically stable, labs okay. CT reviewed and noted. CT similar to that of April 2018. Potentially patient having recurrent small bowel obstructions. Has had 3 episodes prior nonoperative intervention improved without complication. Patient with history of hysterectomy and lap cha. concern for colitis asking for pain meds directly. Given above we will follow clinically. Patient has had similar episodes resolving with nonoperative management. Patient currently afebrile no leukocytosis not septic hemodynamically stable unfortunately exam unreliable okay for diet colonoscopy 8 weeks outpatient IV fluids We will follow with recommendations thank you for let me participate in patient's care Will follow with abdominal exams A.m. labs ICD Codes: R10.9 - Unspecified abdominal pain SNOMED: 25295542 (5) Osteoarthritis ICD Codes: M19.90 - Unspecified osteoarthritis, unspecified site SNOMED: 661090960 (6) Contusion of left knee ICD Codes: S80.02XA - Contusion of left knee, initial encounter SNOMED: 16825183 (7) Contusion of left shoulder ICD Codes: S40.012A - Contusion of left shoulder, initial encounter SNOMED: 78490211 (8) Back contusion ICD Codes: S20.229A - Contusion of unspecified back wall of thorax, initial encounter SNOMED: 35707199 (9) Multiple injuries due to trauma ICD Codes: T07.XXXA - Unspecified multiple injuries, initial encounter SNOMED: 721352484 Abhishek Mora Apr 24, 2020 14:29
[2020-04-24] MEDS: Lactulose 20gm/30ml UDC ORAL SCH (17:49)
[2020-04-24] MEDS: Docusate 100mg cap ORAL SCH (17:49)
--- NOTE | 2020-04-24 19:31 | Cardiology Report ---
APPROVED REPORT EKG Measurement Heart [id number] ND 156P58 [id number] <Conclusion> Normal sinus rhythm Normal ECG
--- NOTE | 2020-04-24 19:43 | NUR ---
NURSE HAND-OFF REPORT: Important Events on Shift: n/v from dilaudid even with zofran, Patient Status: fc, stable Diet: npo Pending Orders: Pending Results/Labs: Pending MD notification: Latest Vital Signs: Temperature 97.0 , Pulse 55 , B/P 123 /79 , Respiratory Rate 18 , O2 SAT 95 , Room Air, O2 Flow Rate . Vital Sign Comment: EKG Rhythm: Sinus Bradycardia Rhythm change?: N MD Notified?: N - MD Response: Latest Lowery Fall Score: 35 Fall Risk: Medium Risk Safety Measures: Call light Within Reach, Bed Alarm Zone 2, Side Rails Side Rails x2, Bed position Low and Locked. Fall Precautions: Yellow Socks Yellow Gown Door Sign Patient Fall Education Report given to OFELIA Barba.
--- NOTE | 2020-04-24 19:45 | NUR ---
NURSE NOTES: Important Events on Shift: Received report from Shaunna Stone RN. Pt in bed, awake, alert, denies pain at this time. No signs or symptpms pf distress noted att this time. Will continue plan of care and close monitoring. Patient Status: stable Diet: cardiac, NPO @0000 Pending Orders: none Pending Results/Labs: CBC, CMP Pending MD notification: none Latest Vital Signs: Temperature 98.3 , Pulse 59 , B/P 152 /81 , Respiratory Rate 20 , O2 SAT 96 , Room Air, O2 Flow Rate . Vital Sign Comment: stable EKG Rhythm: Sinus Bradycardia Rhythm change?: N MD Notified?: N - MD Response: Latest Lowery Fall Score: 35 Fall Risk: Medium Risk Safety Measures: Call light Within Reach, Bed Alarm Zone 1, Side Rails Side Rails x2, Bed position Low and Locked. Fall Precautions: yes Yellow Socks yes Yellow Gown yes Door Sign yes Patient Fall Education yes
[2020-04-25] VITALS: BP 152/81
--- NOTE | 2020-04-25 01:00 | NUR ---
NURSE NOTES: R hand saline lock became dislodged. New PIV R hand 24g inserted without incident. PIV is patent, intact, and asymptomatic. Will continue to monitor closely.
[2020-04-25] MEDS: HYDROmorphone 1mg/ml Carpuject IVP PRN ×2 (01:04→08:39)
[2020-04-25] MEDS: Enoxaparin 40mg Inj SUBQ SCH (02:00)
[2020-04-25] MEDS: Piperacillin/Tazobactam 3.375 GM in NS 110 ML IVPB SCH (02:00)
[2020-04-25 04:00] VITALS: BP 155/81
--- NOTE | 2020-04-25 05:30 | NUR ---
NURSE HAND-OFF REPORT: Important Events on Shift: Pt refused lovenox, MD to be notified during AM shift. New PIV R hand 24g placed after R wrist dislodged. Patient Status: stable Diet: NPO Pending Orders: AB xray Pending Results/Labs: cbc, cmp Pending MD notification: Lovenox refusal, ask to reschedule lovenox to later time (currently 0200 Q24H) Latest Vital Signs: Temperature 98.3 , Pulse 57 , B/P 152 /81 , Respiratory Rate 20 , O2 SAT 96 , Room Air, O2 Flow Rate . Vital Sign Comment: stable throughout shift EKG Rhythm: Sinus Bradycardia Rhythm change?: N MD Notified?: N - MD Response: - Latest Lowery Fall Score: 35 Fall Risk: Medium Risk Safety Measures: Call light Within Reach, Bed Alarm Zone 1, Side Rails Side Rails x2, Bed position Low and Locked. Fall Precautions: yes Yellow Socks yes Yellow Gown yes Door Sign yes Patient Fall Education yes
[2020-04-25 06:39] LABS: HEMATOCRIT 38.2 % (37.0-47.0); HEMOGLOBIN 13.2 G/DL (12.0-16.0); MEAN CORPUSCULAR VOLUME 89 FL (80-99); PLATELET COUNT 206 K/UL (150-450); RED BLOOD COUNT 4.29 M/UL (4.20-5.40); RED CELL DISTRIBUTION WIDTH 12.6 % (11.6-14.8); WHITE BLOOD COUNT 5.4 K/UL (4.8-10.8)
[2020-04-25 07:04] LABS: ALANINE AMINOTRANSFERASE 27 U/L (12-78); ALBUMIN 2.7 G/DL (3.4-5.0); ALBUMIN/GLOBULIN RATIO 0.8 (1.0-2.7); ALKALINE PHOSPHATASE 54 U/L (46-116); ANION GAP 8 mmol/L (5-15); ASPARTATE AMINO TRANSFERASE 30 U/L (15-37); BILIRUBIN,TOTAL 0.3 MG/DL (0.2-1.0); BLOOD UREA NITROGEN 11 mg/dL (7-18); CALCIUM 8.3 MG/DL (8.5-10.1); CARBON DIOXIDE 23 MMOL/L (21-32); CHLORIDE 110 MMOL/L (98-107); POTASSIUM 3.8 MMOL/L (3.5-5.1); SODIUM 141 MMOL/L (136-145)
--- NOTE | 2020-04-25 07:04 | NUR ---
HAND-OFF: Report given to Doretha Lees RN. Pt in stable condition.
--- NOTE | 2020-04-25 07:27 | NUR ---
NURSE NOTES: NURSE NOTES: Received report from Johanna/RN. Pt sleeping comfortably, in semi-call position. On room air, no distress or SOB noted. Pt is NPO waiting for abdominal X-ray today. IV on right hand 22G running NS @ 125 ml/hr, patent and clean. Bed in the lowest position and locked. Call light within reach, side rails upx3. Will continue plan of care.
[2020-04-25 08:00] VITALS: BP_SYST 153; BP_SYST 167; BP_DIAS 85; BP_DIAS 94
[2020-04-25] MEDS: Pantoprazole Inj IV SCH (08:38)
[2020-04-25] MEDS: Docusate 100mg cap ORAL SCH (08:48)
[2020-04-25] MEDS: Lactulose 20gm/30ml UDC ORAL SCH (08:48)
--- NOTE | 2020-04-25 09:18 | General Progress Note ---
Subjective ROS Limited/Unobtainable: Yes Allergies: Coded Allergies: CIMETIDINE (Verified Allergy, Unknown, 04/25/19) IODINATED CONTRAST MEDIA (Verified Allergy, Unknown, 04/25/19) Uncoded Allergies: IDODINE (Allergy, Unknown, 04/25/19) Objective Last 24 Hour Vital Signs Date Time Temp Pulse Resp B/P (MAP) Pulse Ox O2 Delivery O2 Flow Rate FiO2 04/25/20 08:54 Room Air 04/25/20 08:00 96.0 67 21 167/94 (118) 97 04/25/20 04:00 98.0 60 20 155/81 (105) 97 04/25/20 04:00 57 04/25/20 01:35 98.3 04/25/20 00:00 98.3 66 20 152/81 (104) 96 04/25/20 00:00 59 04/24/20 21:00 Room Air 04/24/20 20:00 76 04/24/20 20:00 60 20 95 Room Air 21 04/24/20 20:00 97.9 60 20 145/82 (103) 97 04/24/20 16:00 55 04/24/20 16:00 97.0 55 18 123/79 (94) 95 04/24/20 12:00 96.9 58 20 134/74 (94) 95 04/24/20 12:00 57 04/24/20 11:17 96.9 Intake and Output 04/24/20 04/25/20 19:00 07:00 Intake Total 1595 ml Balance 1595 ml Intake Oral 360 ml IV Total 1235 ml # Voids 1 3 Laboratory Tests 04/25/20 06:07: White Blood Count 5.4, Red Blood Count 4.29, Hemoglobin 13.2, Hematocrit 38.2, Mean Corpuscular Volume 89, Mean Corpuscular Hemoglobin 30.6, Mean Corpuscular Hemoglobin Concent 34.5, Red Cell Distribution Width 12.6, Platelet Count 206, Mean Platelet Volume 8.7, Neutrophils (%) (Auto) , Lymphocytes (%) (Auto) , Monocytes (%) (Auto) , Eosinophils (%) (Auto) , Basophils (%) (Auto) , Differential Total Cells Counted 100, Neutrophils % (Manual) 33L, Lymphocytes % (Manual) 52H, Monocytes % (Manual) 11H, Eosinophils % (Manual) 4H, Basophils % (Manual) 0, Band Neutrophils 0, Platelet Estimate Adequate, Platelet Morphology Normal, Red Blood Cell Morphology Normal, Sodium Level 141, Potassium Level 3.8, Chloride Level 110H, Carbon Dioxide Level 23, Anion Gap 8, Blood Urea Nitrogen 11, Creatinine 1.0, Estimat Glomerular Filtration Rate > 60, Glucose Level 88, Calcium Level 8.3L, Total Bilirubin 0.3, Aspartate Amino Transf (AST/SGOT) 30, Alanine Aminotransferase (ALT/SGPT) 27, Alkaline Phosphatase 54, Total Protein 6.3L, Albumin 2.7L, Globulin 3.6, Albumin/Globulin Ratio 0.8L Height (Feet): 5 Height (Inches): 4.00 Weight (Pounds): 219 General Appearance: no apparent distress EENT: normal ENT inspection Neck: supple Cardiovascular: normal rate Respiratory/Chest: decreased breath sounds Abdomen: normal bowel sounds, non tender, soft Extremities: non-tender Assessment/Plan Problem List: (1) Constipation ICD Codes: K59.00 - Constipation, unspecified SNOMED: 74632231 (2) Abdominal pain ICD Codes: R10.9 - Unspecified abdominal pain SNOMED: 96523163 (3) Diverticulitis ICD Codes: K57.92 - Diverticulitis of intestine, part unspecified, without perforation or abscess without bleeding SNOMED: 457629480 (4) Cocaine abuse ICD Codes: F14.10 - Cocaine abuse, uncomplicated SNOMED: 54750392 Status: stable Assessment/Plan: abx needs out patient colonoscopy in 8 weeks bowel regimen advance diet ok to dc GI stand point Ralph Hartley MD Apr 25, 2020 09:18
--- NOTE | 2020-04-25 09:31 | NUR ---
RADIOLOGY DEPT., ABDOMEN X-RAY COMPLETED.-P.DYE
[2020-04-25] MEDS ORDERED: COLACE100 MG ORAL (09:37)
[2020-04-25] MEDS ORDERED: LACTULOSE20 GM/301 ORAL (09:37)
--- NOTE | 2020-04-25 09:38 | Discharge Instructions ---
Discharge Instructions Discharge Instructions Follow up with: Dr. Montero in 6 weeks Diet: 2 GM sodium (low sodium) Resume Normal Activity?: Yes Activity: resume normal activities For Congestive Heart Failure Reminder Report to your physician any weight gain of 5 pounds or more in one week. Mann Nichols M.D. Apr 25, 2020 09:38
--- NOTE | 2020-04-25 09:39 | Discharge Summary ---
Discharge Summary Hospital Course Date of Admission Apr 23, 2020 at 23:21 Date of Discharge Admitting Diagnosis abdominal pain, diverticulitis HPI Zita Penn is a 64 year old female who was admitted on Apr 23, 2020 at 23:21 for Abdominal Pain, Diverticulitis Consultations GI, surgery Hospital Course Patient is a pleasant 64 year old female with past medical history of HTN, HLD, gastritis, irritable bowel syndrome, recurrent small bowel obstruction and diverticulitis who presented to the emergency department c/o abdominal pain, vomiting, unable to hold food down. Her vomitus is nonbloody nonbilious. She is also complaining of loose stools. Abdominal pain is diffuse, constant, and sharp. No radiation. Patient denies chest pain, sob, palpitations. She has had no recent travel or sick contacts. Denies urinary symptoms. Denies headache, weakness, visual changes. Patient previously admitted to [facility] for partial small bowel obstruction. In the ER CT imaging showed no evidence of bowel obstruction. Possible minimal early diverticulitis involving the proximal sigmoid colon, no perforation or abscess. Recommend correlation with colonoscopy to exclude infiltrative neoplasm. Moderate colonic stool burden. Basilar lung findings suggesting interstitial lung disease. She was noted to have urine drug screen which is positive for cocaine. EKG showed normal sinus rhythm with a rate of [address] or T wave changes consistent with myocardial ischemia. Patient was given IV Ativan. She started on IV fluids and admitted. Patient had multiple bowel movements and her abdominal pain resolved. She received IVF and zosyn. Her kidney function returned to normal. She will be discharged on bowel regimen and cipro/flagyl Exam at the time of discharge: General Appearance: WD/WN, no apparent distress, alert Lines, tubes and drains: peripheral HEENT: normocephalic, atraumatic, anicteric, PERRL, EOMI, other - dry MM Neck: non-tender, normal alignment, supple Respiratory/Chest: chest wall non-tender, lungs clear, normal breath sounds, no respiratory distress Cardiovascular/Chest: normal peripheral pulses, normal rate, regular rhythm Abdomen: normal bowel sounds, soft, no organomegaly, no mass, abnormal bowel sounds, non tender Extremities: normal range of motion, non-tender, no calf tenderness, no edema Neurologic: broker associate II-XII grossly normal, no motor/sensory deficits, alert, oriented x 3, responsive Musculoskeletal: normal muscle bulk discharge diagnosis: #Abdominal pain #Diverticulitis #Constipation #cocaine abuse- #Dehydration #NANCY Discharge Medications New Medications: Docusate Sodium* (Colace*) 100 Mg Capsule 100 MG ORAL TWICE A DAY for 10 Days, #20 CAP Lactulose (Lactulose*) 20 Gm/30 Ml Solution 20 GM ORAL BID for 10 Days, #1 EA Continued Medications: Acetaminophen* (Tylenol Extra Strength*) 500 Mg Tablet 500 MG ORAL Q8H PRN for Prn Headache/Temp > 101, #30 TAB 0 Refills Ciprofloxacin* (Cipro*) 500 Mg Tablet 500 MG PO BID for 10 Days, #20 TAB Metronidazole* (Flagyl*) 500 Mg Tablet 500 MG ORAL BID for 10 Days, #20 TAB Ondansetron (Zofran) 4 Mg Tablet 4 MG ORAL Q6H PRN for Nausea & Vomiting, #14 TAB Discharge Condition Upon Discharge: improving, stable Discharge Vital Signs Last Vital Signs Date Time Temp Pulse Resp B/P (MAP) Pulse Ox O2 Delivery O2 Flow Rate FiO2 04/25/20 08:54 Room Air 04/25/20 08:00 96.0 67 21 153/85 (107) 97 04/24/20 20:00 21 Discharge Disposition Patient was discharged to Home Discharge Diagnoses: (1) NANCY (acute kidney injury) (2) Dehydration (3) Constipation (4) Cocaine abuse (5) Diverticulitis (6) Abdominal pain Discharge Instructions Discharge Instructions Follow up with: Dr. Montero in 6 weeks Activity: resume normal activities Mann Nichols M.D. Apr 25, 2020 09:39
--- NOTE | 2020-04-25 10:45 | NUR ---
NURSE NOTES: Pt discharged via private vehicle, she left by herself stated her son was working I could not pick her up. Discharge instructions given and patient verbalized understanding. Patient in stable condition, no distress or SOB noted. holistic pulser, IV access, and ID band removed. belongings check list done and signed by pt.
--- NOTE | 2020-04-25 11:07 | NUR ---
INSURANCE FAXED CLINICALS TO [facility] [phone] Addendum: 04/25/20 at 1110 by Dede Land CM [phone]
--- NOTE | 2020-04-25 12:56 | Diagnostic Imaging Report ---
Indication: Abnormal pain Technique: Portable frontal views of the abdomen Comparison: Elevation made to abdomen CT 04/23/2020 Findings: Bowel gas pattern is nonobstructive. No evidence to suggest free intraperitoneal air however sensitivity in evaluation for such is limited given lack of erect/standing view. Cholecystectomy clips noted in the right upper quadrant. There are degenerative changes in the spine. No acute osseous abnormality appreciated. Interstitial prominence again noted in the lung bases as previously described. IMPRESSION: Nonobstructive bowel gas pattern.
--- NOTE | 2020-04-25 12:58 | Surgery Progress Note ---
Surgery Progress Note Subjective Additional Comments late entry no n/v wants more pain meds Objective Last 24 Hour Vital Signs Date Time Temp Pulse Resp B/P (MAP) Pulse Ox O2 Delivery O2 Flow Rate FiO2 04/25/20 08:54 Room Air 04/25/20 08:00 96.0 67 21 153/85 (107) 97 04/25/20 08:00 82 04/25/20 04:00 98.0 60 20 155/81 (105) 97 04/25/20 04:00 57 04/25/20 01:35 98.3 04/25/20 00:00 98.3 66 20 152/81 (104) 96 04/25/20 00:00 59 04/24/20 21:00 Room Air 04/24/20 20:00 76 04/24/20 20:00 60 20 95 Room Air 21 04/24/20 20:00 97.9 60 20 145/82 (103) 97 04/24/20 16:00 55 04/24/20 16:00 97.0 55 18 123/79 (94) 95 I&O Intake and Output 04/24/20 04/25/20 19:00 07:00 Intake Total 1595 ml Balance 1595 ml Intake Oral 360 ml IV Total 1235 ml # Voids 1 3 Cardiovascular: RSR Respiratory: clear Abdomen: soft, non-tender, present bowel sounds Extremities: no edema, no tenderness, no cyanosis Laboratory Tests Test 04/25/20 06:07 White Blood Count 5.4 K/UL (4.8-10.8) Red Blood Count 4.29 M/UL (4.20-5.40) Hemoglobin 13.2 G/DL (12.0-16.0) Hematocrit 38.2 % (37.0-47.0) Mean Corpuscular Volume 89 FL (80-99) Mean Corpuscular Hemoglobin 30.6 PG (27.0-31.0) Mean Corpuscular Hemoglobin Concent 34.5 G/DL (32.0-36.0) Red Cell Distribution Width 12.6 % (11.6-14.8) Platelet Count 206 K/UL (150-450) Mean Platelet Volume 8.7 FL (6.5-10.1) Neutrophils (%) (Auto) % (45.0-75.0) Lymphocytes (%) (Auto) % (20.0-45.0) Monocytes (%) (Auto) % (1.0-10.0) Eosinophils (%) (Auto) % (0.0-3.0) Basophils (%) (Auto) % (0.0-2.0) Differential Total Cells Counted 100 Neutrophils % (Manual) 33 % (45-75) L Lymphocytes % (Manual) 52 % (20-45) H Monocytes % (Manual) 11 % (1-10) H Eosinophils % (Manual) 4 % (0-3) H Basophils % (Manual) 0 % (0-2) Band Neutrophils 0 % (0-8) Platelet Estimate Adequate Platelet Morphology Normal Red Blood Cell Morphology Normal Sodium Level 141 MMOL/L (136-145) Potassium Level 3.8 MMOL/L (3.5-5.1) Chloride Level 110 MMOL/L (98-107) H Carbon Dioxide Level 23 MMOL/L (21-32) Anion Gap 8 mmol/L (5-15) Blood Urea Nitrogen 11 mg/dL (7-18) Creatinine 1.0 MG/DL (0.55-1.30) Estimat Glomerular Filtration Rate > 60 mL/min (>60) Glucose Level 88 MG/DL (74-106) Calcium Level 8.3 MG/DL (8.5-10.1) L Total Bilirubin 0.3 MG/DL (0.2-1.0) Aspartate Amino Transf (AST/SGOT) 30 U/L (15-37) Alanine Aminotransferase (ALT/SGPT) 27 U/L (12-78) Alkaline Phosphatase 54 U/L (46-116) Total Protein 6.3 G/DL (6.4-8.2) L Albumin 2.7 G/DL (3.4-5.0) L Globulin 3.6 g/dL Albumin/Globulin Ratio 0.8 (1.0-2.7) L Plan Problems: (1) Constipation (2) Cocaine abuse (3) Diverticulitis (4) Abdominal pain Assessment & Plan: Patient presents recurrent abdominal pain without radiation with associated nausea, no emesis. Afebrile, hemodynamically stable, labs okay. CT reviewed and noted. CT similar to that of April 2018. Potentially patient having recurrent small bowel obstructions. Has had 3 episodes prior nonoperative intervention improved without complication. Patient with history of hysterectomy and lap cha. concern for colitis asking for pain meds directly. Given above we will follow clinically. Patient has had similar episodes resolving with nonoperative management. Patient currently afebrile no leukocytosis not septic hemodynamically stable unfortunately exam unreliable okay for diet colonoscopy 8 weeks outpatient IV fluids We will follow with recommendations thank you for let me participate in patient's care Will follow with abdominal exams A.m. labs (5) Osteoarthritis (6) Contusion of left knee (7) Contusion of left shoulder (8) Back contusion (9) Multiple injuries due to trauma Abhishek Mora Apr 25, 2020 12:58
--- NOTE | 2020-04-25 16:10 | NUR ---
CASE MANAGEMENT:REVIEW WALKED IN TO ER CC; ABDOMINAL PAIN SI: DIVERTICULITIS. ABDOMINAL PAIN 98.2 98 24 151/89 98% ON RA URINE(+) COCAINE BUN+23 CR+1.4 IS: IV ZOFRAN IV MORPHINE 1L NS BOLUS IV ATIVAN CT ABD/PELVIS : TELEMETRY STATUS
== END 2020-04-25 11:15 | disposition home or self-care (01) | DRG 244 ==
LOC: EMR 21:34 → OBSVTOIN 23:21 → 2E 23:21 → EDBEDREQ 23:29
DX: K57.92 Diverticulitis of intestine, part unspecified, without perforation or abscess without bleeding (principal); F14.10 Cocaine abuse, uncomplicated; N17.9 Acute kidney failure, unspecified; Z88.8 Allergy status to other drugs, medicaments and biological substances; Z91.041 Radiographic dye allergy status; I10 Essential (primary) hypertension; E78.5 Hyperlipidemia, unspecified; K59.00 Constipation, unspecified; E86.0 Dehydration; M19.90 Unspecified osteoarthritis, unspecified site; S80.02XA Contusion of left knee, initial encounter; S40.012A Contusion of left shoulder, initial encounter; S30.0XXA Contusion of lower back and pelvis, initial encounter; X58.XXXA Exposure to other specified factors, initial encounter
CPT/HCPCS: 36415; 74018; 74176; 80053; 80307; 81003; 83690; 84484; 85007; 85025; 85610; 85730; 86850; 86900; 86901; 93005; 94664; 96361; 96374; 96375; 99285; G0480; J1815; J2405; J7030; U0002

== ENCOUNTER 2020-05-01 20:22 | Inpatient (IN) | payer OTHER ==
[~2020-05-01] VITALS: Ht 165.1 cm; Wt 55.3 kg
[~2020-05-01 20:22] MED LIST changes: +COLACE100 MG ORAL; +LACTULOSE20 GM/301 ORAL
[2020-05-01] MEDS ORDERED: Morphine Sulfate 4mg/ml Inj (IV USE ONLY) IVP ONE (21:00)
[2020-05-01] MEDS ORDERED: DiphenhydrAMINE 50mg/ml Inj IVP ONE (21:00)
[2020-05-01] MEDS ORDERED: Pantoprazole Inj IV ONE (21:00)
[2020-05-01] MEDS ORDERED: Metoclopramide 10mg/2ml Inj IVP ONE (21:00)
--- NOTE | 2020-05-01 21:30 | NUR ---
ED Nurse Note: Recieved pt from home, here with c/o severe abdominal pain at 10/10 for past 3-4 days, pt is actively vomiting, pt has hx of SBO and states it feels the same, pt is anxious and restless from pain, b/p elevated also, pt unable to take meds due to vomiting, pt denies chest pain, sob, fevers, or any other discomforts, pt immediately gowned, IV line placed and labs done, will medicate for pain as ordered and closely monitor for effectiveness or any changes.
[2020-05-01 21:52] LABS: BASOPHILS % (AUTO) 1.8 % (0.0-2.0); EOSINOPHILS % (AUTO) 3.7 % (0.0-3.0); HEMATOCRIT 45.2 % (37.0-47.0); HEMOGLOBIN 14.9 G/DL (12.0-16.0); MEAN CORPUSCULAR VOLUME 95 FL (80-99); MONOCYTES % (AUTO) 5.2 % (1.0-10.0); NEUTROPHILS % (AUTO) 42.4 % (45.0-75.0); PLATELET COUNT 272 K/UL (150-450); RED BLOOD COUNT 4.76 M/UL (4.20-5.40); RED CELL DISTRIBUTION WIDTH 13.4 % (11.6-14.8); WHITE BLOOD COUNT 6.4 K/UL (4.8-10.8)
--- NOTE | 2020-05-01 22:02 | Emergency Room Report ---
History of Present Illness General Chief Complaint: Abdominal Pain Source: Patient Present Illness HPI Patient complains of 3 to 4 days of intense intermittent abdominal pain with vomiting. The last time this happened she had a small bowel obstruction and needed to be admitted to the hospital. This feels similar to her this time. The pain is severe at this time and she cannot keep any of her medications down. The pain is rated 10/10. Burning and aching. She reports that diffusely but more epigastric. She is not vomiting coffee grounds or blood. She denies melena. She denies dysuria. She denies fevers or chills. Is quite anxious due to the pain. She was discharged on Cipro and metronidazole but has been unable to keep these medications down. Patient denies exposure to COVID-19 positive contacts. No sore throat, chest pain, palpitations, shortness of breath, joint pain, rashes, visual changes, dizziness, headache. Recently admitted\ #Abdominal pain #Diverticulitis #Constipation #cocaine abuse- #Dehydration #NACNY Allergies: Coded Allergies: CIMETIDINE (Verified Allergy, Unknown, 04/25/19) IODINATED CONTRAST MEDIA (Verified Allergy, Unknown, 04/25/19) Uncoded Allergies: IDODINE (Allergy, Unknown, 04/25/19) COVID-19 Screening Contact w/high risk pt: No Experienced COVID-19 symptoms?: No COVID-19 Testing performed WHITE MIXING OPERATOR: No Patient History Past Medical History: see triage record, old chart reviewed Social History: Reports: smoking, drug use - Cocaine Social History Narrative From home Reviewed Nursing Documentation: PMH: Agreed; PSxH: Agreed Nursing Documentation-PMH Hx Cardiac Problems: Yes Hx Hypertension: Yes Hx Asthma: Yes Hx Cancer: No Hx Gastrointestinal Problems: Yes Hx Neurological Problems: No Review of Systems All Other Systems: negative except mentioned in HPI Physical Exam Vital Signs Date Time Temp Pulse Resp B/P (MAP) Pulse Ox O2 Delivery O2 Flow Rate FiO2 05/01/20 20:46 98.4 84 18 187/111 (136) 96 Room Air Sp02 EP Interpretation: reviewed, normal General Appearance: well appearing, alert, GCS 15, non-toxic, moderate distress Head: normocephalic Eyes: bilateral eye normal inspection, bilateral eye PERRL, bilateral eye EOMI ENT: moist mucus membranes Neck: supple Respiratory: lungs clear, normal breath sounds Cardiovascular #1: regular rate, rhythm Cardiovascular #2: 2+ radial (R) Gastrointestinal: normal inspection, normal bowel sounds, no mass, non- distended, no guarding, no rebound, tenderness - Diffuse but more epigastric Genitourinary: no CVA tenderness Musculoskeletal: back normal, normal range of motion, gait/station normal Neurologic: alert, oriented x3, grossly normal Psychiatric: anxious Skin: no rash, warm/dry Medical Decision Making Diagnostic Impression: Primary Impression: Intractable abdominal pain Additional Impressions: Nausea & vomiting Qualified Codes: R11.2 - Nausea with vomiting, unspecified H/O diverticulitis of colon Cocaine abuse ER Course Patient presents with abdominal pain vomiting. Differential includes gastroenteritis, small bowel obstruction, diverticulitis, food poisoning moist others. Patient evaluated with EKG to exclude cardiac cause, chest x-ray abdo men film and labs. Patient treated with IV hydration, metoclopramide, Benadryl and morphine. Patient in moderate distress at this time. EKG normal sinus rhythm with nonspecific ST-T wave changes rate 68. Chest x-ray normal. Abdomen with nonspecific bowel gas pattern. White count normal. CMP unremarkable. Lipase normal. Urinalysis unremarkable. Continued pain and nausea. Zofran and dilaudid. [address] House. Requested Zosyn and urine lipase. Urinalysis returns with positive cocaine. Patient admitted to the hospital for observation. Laboratory Tests Test 05/01/20 21:35 05/01/20 23:10 White Blood Count 6.4 K/UL (4.8-10.8) Red Blood Count 4.76 M/UL (4.20-5.40) Hemoglobin 14.9 G/DL (12.0-16.0) Hematocrit 45.2 % (37.0-47.0) Mean Corpuscular Volume 95 FL (80-99) Mean Corpuscular Hemoglobin 31.3 PG (27.0-31.0) H Mean Corpuscular Hemoglobin Concent 32.9 G/DL (32.0-36.0) Red Cell Distribution Width 13.4 % (11.6-14.8) Platelet Count 272 K/UL (150-450) Mean Platelet Volume 9.6 FL (6.5-10.1) Neutrophils (%) (Auto) 42.4 % (45.0-75.0) L Lymphocytes (%) (Auto) 47.0 % (20.0-45.0) H Monocytes (%) (Auto) 5.2 % (1.0-10.0) Eosinophils (%) (Auto) 3.7 % (0.0-3.0) H Basophils (%) (Auto) 1.8 % (0.0-2.0) Prothrombin Time 10.0 SEC (9.30-11.50) Prothrombin Time INR 0.9 (0.9-1.1) Activated Partial Thromboplast Time 26 SEC (23-33) Sodium Level 144 MMOL/L (136-145) Potassium Level 3.9 MMOL/L (3.5-5.1) Chloride Level 108 MMOL/L (98-107) H Carbon Dioxide Level 30 MMOL/L (21-32) Anion Gap 7 mmol/L (5-15) Blood Urea Nitrogen 9 mg/dL (7-18) Creatinine 1.2 MG/DL (0.55-1.30) Estimated Glomerular Filtration Rate 54.9 mL/min (>60) Glucose Level 100 MG/DL (74-106) Calcium Level 9.1 MG/DL (8.5-10.1) Total Bilirubin 0.1 MG/DL (0.2-1.0) L Aspartate Amino Transferase (AST) 16 U/L (15-37) Alanine Aminotransferase (ALT) 14 U/L (12-78) Alkaline Phosphatase 66 U/L (46-116) Troponin I 0.000 ng/mL (0.000-0.056) Total Protein 6.9 G/DL (6.4-8.2) Albumin 3.1 G/DL (3.4-5.0) L Globulin 3.8 g/dL Albumin/Globulin Ratio 0.8 (1.0-2.7) L Lipase 150 U/L (73-393) Urine Color Pale yellow Urine Appearance Clear Urine pH 7 (4.5-8.0) Urine Specific [place] 1.005 (1.005-1.035) Urine Protein Negative (NEGATIVE) Urine Glucose (UA) Negative (NEGATIVE) Urine Ketones Negative (NEGATIVE) Urine Blood Negative (NEGATIVE) Urine Nitrite Negative (NEGATIVE) Urine Bilirubin Negative (NEGATIVE) Urine Urobilinogen Normal MG/DL (0.0-1.0) Urine Leukocyte Esterase Negative (NEGATIVE) Urine Opiates Screen Negative (NEGATIVE) Urine Barbiturates Screen Negative (NEGATIVE) Phencyclidine (PCP) Screen Negative (NEGATIVE) Urine Amphetamines Screen Negative (NEGATIVE) Urine Benzodiazepines Screen Negative (NEGATIVE) Urine Cocaine Screen Positive (NEGATIVE) H Urine Marijuana (THC) Screen Negative (NEGATIVE) EKG Diagnostic Results Rate: normal Rhythm: NSR ST Segments: no acute changes - Nonspecific septal changes rate 68 Rhythm Strip Diag. Results EP Interpretation: yes Rhythm: NSR, no PVC's Chest X-Ray Diagnostic Results Chest X-Ray Diagnostic Results : Chest X-Ray Ordered: Yes # of Views/Limited/Complete: 1 View Indication: Other EP Interpretation: Yes Interpretation: no consolidation, no effusion, no pneumothorax Impression: No acute disease Electronically Signed by: Electronically signed by Gurpreet Wei MD Other X-Ray Diagnostic Results Other X-Ray Diagnostic Results : X-Ray ordered: Abdomen # of Views/Limited Vs Complete: 2 View Indication: Pain Interpretation: nonspecific bowel gas, no sbo, other - Cholecystectomy clips Impression: Other Electronically Signed by: Electronically signed by Gurpreet Wei MD Last Vital Signs Date Time Temp Pulse Resp B/P (MAP) Pulse Ox O2 Delivery O2 Flow Rate FiO2 05/01/20 20:46 98.4 84 18 187/111 (136) 96 Room Air Status: improved Disposition: PLACE IN OBSERVATION Condition: Serious Referrals: NON PHYSICIAN (PCP) Gurpreet Wei MD May 01, 2020 22:02
[2020-05-01 22:05] LABS: CALCIUM 9.1 MG/DL (8.5-10.1); CREATININE 1.2 MG/DL (0.55-1.30); INR 0.9 (0.9-1.1); POTASSIUM 3.9 MMOL/L (3.5-5.1)
[2020-05-01 22:09] LABS: ALBUMIN 3.1 G/DL (3.4-5.0); ALBUMIN/GLOBULIN RATIO 0.8 (1.0-2.7); BILIRUBIN,TOTAL 0.1 MG/DL (0.2-1.0)
--- NOTE | 2020-05-01 22:10 | NUR ---
ED Nurse Note: Pt sleeping, meds effective, b/p also decreasing, md aware, will continue to monitor and prepare for admission, pt is also no longer with emesis or nausea.
--- NOTE | 2020-05-01 22:21 | Diagnostic Imaging Report ---
EXAM: XR Chest, 1 View CLINICAL HISTORY: ABD PAIN TECHNIQUE: Frontal view of the chest. COMPARISON: 07/24/2019 FINDINGS: Lungs: Mild interstitial lung marking prominence. No focal airspace disease. Pleural space: Unremarkable. No pneumothorax. Heart: Unremarkable. No cardiomegaly. Mediastinum: Unremarkable. Bones/joints: Unremarkable. Vasculature: The aorta is tortuous. IMPRESSION: Chronic interstitial lung disease without focal airspace disease.
--- NOTE | 2020-05-01 22:23 | Diagnostic Imaging Report ---
EXAM: XR Abdomen, 2 Views CLINICAL HISTORY: ABD PAIN TECHNIQUE: Frontal view of the abdomen/pelvis with upright view of the abdomen. COMPARISON: CT abdomen and pelvis dated 04/23/2020. FINDINGS: Intraperitoneal space: No free air. Gastrointestinal tract: Unremarkable. No dilation. Organs: Cholecystectomy clips overlie the right upper quadrant. Bones/joints: No acute abnormality. Multilevel degenerative changes of the lumbar spine. IMPRESSION: No acute findings in the abdomen or pelvis.
[2020-05-01 22:35] VITALS: BP 169/101
--- NOTE | 2020-05-01 23:11 | NUR ---
called back, speaking with .
[2020-05-01] MEDS ORDERED: HYDROmorphone 1mg/ml Carpuject IVP ONE (23:15)
[2020-05-01] MEDS ORDERED: Piperacillin/Tazobactam 3.375 GM in NS 110 ML IVPB ONE (23:15)
[2020-05-01 23:30] LABS: APPEARANCE,URINE CLEAR; BILIRUBIN, URINE NEGATIVE (NEGATIVE); COLOR,URINE PALE YELLOW; GLUCOSE, URINE (UA) NEGATIVE (NEGATIVE); KETONES,URINE NEGATIVE (NEGATIVE); LEUKOCYTE ESTERASE ,URINE NEGATIVE (NEGATIVE); NITRITE,URINE NEGATIVE (NEGATIVE); PH,URINE 7 (4.5-8.0); PROTEIN,URINE NEGATIVE (NEGATIVE); UROBILINOGEN,URINE NORMAL MG/DL (0.0-1.0)
--- NOTE | 2020-05-01 23:40 | NUR ---
ED Nurse Note: Pt assisted to bathroom, ambulates well, urine sample sent, pt states pain and nausea returning, new orders recieved, v/s stable, no cp or sob, will re-medicate as ordered and prepare for admit to hospital.
[2020-05-02] VITALS (7 sets, daily range): BP systolic 138–174; BP diastolic 70–99
--- NOTE | 2020-05-02 00:05 | NUR ---
ED Nurse Note: Called floor for report, informed by dominic that nacho rogel will call back in 5 minutes. pt sleeping, meds for pain effective and no s/s of adverse reaction noted from IV antibiotics infusing.
--- NOTE | 2020-05-02 00:30 | NUR ---
ED Nurse Note: Placed call to floor again for report, given to Sammi, pt being taken to unit via gurney with IV site patent and has all belongings, nad noted during pt transport.
[2020-05-02] MEDS ORDERED: LR 1000ml 1,000 ML IV ONE (02:00)
--- NOTE | 2020-05-02 07:08 | NUR ---
HAND-OFF: Report given to Jennifer Rizvi RN.
[2020-05-02] MEDS: Hydromorphone 0.5mg/0.5ml inj IVP PRN ×3 (07:13→20:08)
[2020-05-02] MEDS ORDERED: Piperacillin/Tazobactam 3.375 GM in NS 110 ML IVPB SCH (08:00)
[2020-05-02] MEDS: Piperacillin/Tazobactam 3.375 GM in NS 110 ML IVPB SCH ×3 (08:00→23:46)
--- NOTE | 2020-05-02 08:09 | History and Physical ---
History of Present Illness General Reason for Hospitalization: Abdominal Pain Present Illness HPI Patient is a pleasant 64 year old female with past medical history of cocaine ab use, HTN, HLD, gastritis, irritable bowel syndrome, recurrent small bowel obstruction and diverticulitis who presents for recurrent abdominal pain. Patient was recently admitted a few days ago for similar presentation and was discharged on oral abx for acute diverticulitis of sigmoid colon. However, since her discharge her abdominal pain has persisted with increasing nausea/vomiting which inhibited her from continuing her abx; she is unable to keep anything down. She states her abdominal pain is diffuse with no focal area and no alleviating/exacerbating factors. Denies fevers, hematemesis, melena, constipation or diarrhea. Last bowel movement was yesterday and normal. Reports having EGD many years ago and never a colonoscopy. She is currently living with other family members in home. Admits to recreational drug use with cocaine. Denies other illnesses, sick contacts, or travels. In the ED, patient hemodynamically stable. KUB negative for acute pathology. Started on IV abx. Will be admitted for continued tx of diverticulitis and workup of n/v. PMH: cocaine abuse, HTN, HLD, gastritis, irritable bowel syndrome, recurrent sm all bowel obstruction and diverticulitis Fx: Reports mother and sister have stomach issues Sx: Abdomnial surgery Soc: 1ppd current smoker, non drinker, uses recreational drugs ie cocaine Allergies: Coded Allergies: CIMETIDINE (Verified Allergy, Unknown, 04/25/19) IODINATED CONTRAST MEDIA (Verified Allergy, Unknown, 04/25/19) Uncoded Allergies: IDODINE (Allergy, Unknown, 04/25/19) COVID-19 Screening Contact w/high risk pt: No Experienced COVID-19 symptoms?: No Medication History Scheduled Ciprofloxacin* (Cipro*), 500 MG PO BID Docusate Sodium* (Colace*), 100 MG ORAL TWICE A DAY Lactulose (Lactulose*), 20 GM ORAL BID Metronidazole* (Flagyl*), 500 MG ORAL BID Scheduled PRN Acetaminophen* (Tylenol Extra Strength*), 500 MG ORAL Q8H PRN for Prn Headache/Temp > 101 Ondansetron (Zofran), 4 MG ORAL Q6H PRN for Nausea & Vomiting Patient History Healthcare decision maker Resuscitation status Advanced Directive on File Review of Systems Constitutional: Denies: no symptoms, see HPI, chills, sweats, fever, malaise, weakness, other Eye: Denies: no symptoms, see HPI, eye pain, blurred vision, tearing, double vision, nose pain, nose congestion, acuity changes, discharge, other ENT: Denies: no symptoms, see HPI, ear pain, ear discharge, nose pain, nose congestion, throat pain, throat swelling, mouth pain, hearing loss, nasal discharge, other Respiratory: Denies: no symptoms, see HPI, cough, orthopnea, shortness of breath, stridor, wheezing, HOPE, sputum, other Cardiovascular: Denies: no symptoms, see HPI, chest pain, edema, palpitations, syncope, PND, other Gastrointestinal: Reports: abdominal pain, nausea, vomiting; Denies: no symptoms, see HPI, constipation, diarrhea, melena, hematemesis, other Genitourinary: Denies: no symptoms, see HPI, discharge, dysuria, frequency, hematuria, pain, retention, incontinence, urgency, vag bleed/dc, other Musculoskeletal: Denies: no symptoms, see HPI, back pain, gout, joint pain, joint swelling, muscle pain, muscle stiffness, other Skin: Denies: no symptoms, see HPI, rash, change in color, change in morales ir/nails, dryness, lesions, other Psychiatric: Denies: no symptoms, see HPI, prior hx, anxiety, depressed feelings, emotional problems, SI, HI, hallucinations, other Neurological: Denies: no symptoms, see HPI, headache, numbness, paresthesia, seizure, tingling, tremors, focal weakness, syncope, dizziness, other Endocrine: Denies: no symptoms, see HPI, excessive sweating, flushing, intolerance to temperature, increased thirst, increased urine, unexplained weight loss, other Hematologic/Lymphatic: Denies: no symptoms, see HPI, anemia, blood clots, easy bleeding, easy bruising, swollen glands, diathesis, other Physical Exam General Appearance: no apparent distress, alert, alert oriented x3 HEENT: normocephalic, PERRL Neck: non-tender, normal inspection Respiratory/Chest: lungs clear, normal breath sounds, no respiratory distress Cardiovascular/Chest: normal rate, regular rhythm, no JVD Abdomen: normal bowel sounds, non tender, soft, no organomegaly, no mass Extremities: normal range of motion, non-tender Skin Exam: normal pigmentation, warm/dry Neurologic: academic registrar II-XII grossly normal, oriented x 3 Last 24 Hour Vital Signs Date Time Temp Pulse Resp B/P (MAP) Pulse Ox O2 Delivery O2 Flow Rate FiO2 05/02/20 04:04 97.8 68 16 140/78 (98) 94 05/02/20 00:54 98.0 62 18 138/70 (92) 98 05/02/20 00:53 Room Air 05/02/20 00:35 98.5 90 15 156/87 98 Room Air 05/02/20 00:00 98.5 90 15 156/87 98 Room Air 05/01/20 23:59 98.5 05/01/20 22:35 98.5 92 18 169/101 97 Room Air 05/01/20 22:18 98.5 05/01/20 21:30 84 18 Room Air 05/01/20 20:46 98.4 84 18 187/111 (136) 96 Room Air Intake and Output 05/01/20 05/02/20 19:00 07:00 Intake Total 500 ml Balance 500 ml Intake Oral 0 ml IV Total 500 ml # Voids 3 Laboratory Tests Test 05/01/20 21:35 05/01/20 23:10 White Blood Count 6.4 K/UL (4.8-10.8) Red Blood Count 4.76 M/UL (4.20-5.40) Hemoglobin 14.9 G/DL (12.0-16.0) Hematocrit 45.2 % (37.0-47.0) Mean Corpuscular Volume 95 FL (80-99) Mean Corpuscular Hemoglobin 31.3 PG (27.0-31.0) H Mean Corpuscular Hemoglobin Concent 32.9 G/DL (32.0-36.0) Red Cell Distribution Width 13.4 % (11.6-14.8) Platelet Count 272 K/UL (150-450) Mean Platelet Volume 9.6 FL (6.5-10.1) Neutrophils (%) (Auto) 42.4 % (45.0-75.0) L Lymphocytes (%) (Auto) 47.0 % (20.0-45.0) H Monocytes (%) (Auto) 5.2 % (1.0-10.0) Eosinophils (%) (Auto) 3.7 % (0.0-3.0) H Basophils (%) (Auto) 1.8 % (0.0-2.0) Prothrombin Time 10.0 SEC (9.30-11.50) Prothromb Time International Ratio 0.9 (0.9-1.1) Activated Partial Thromboplast Time 26 SEC (23-33) Sodium Level 144 MMOL/L (136-145) Potassium Level 3.9 MMOL/L (3.5-5.1) Chloride Level 108 MMOL/L (98-107) H Carbon Dioxide Level 30 MMOL/L (21-32) Anion Gap 7 mmol/L (5-15) Blood Urea Nitrogen 9 mg/dL (7-18) Creatinine 1.2 MG/DL (0.55-1.30) Estimat Glomerular Filtration Rate 54.9 mL/min (>60) Glucose Level 100 MG/DL (74-106) Calcium Level 9.1 MG/DL (8.5-10.1) Total Bilirubin 0.1 MG/DL (0.2-1.0) L Aspartate Amino Transf (AST/SGOT) 16 U/L (15-37) Alanine Aminotransferase (ALT/SGPT) 14 U/L (12-78) Alkaline Phosphatase 66 U/L (46-116) Troponin I 0.000 ng/mL (0.000-0.056) Total Protein 6.9 G/DL (6.4-8.2) Albumin 3.1 G/DL (3.4-5.0) L Globulin 3.8 g/dL Albumin/Globulin Ratio 0.8 (1.0-2.7) L Lipase 150 U/L (73-393) Urine Color Pale yellow Urine Appearance Clear Urine pH 7 (4.5-8.0) Urine Specific [place] 1.005 (1.005-1.035) Urine Protein Negative (NEGATIVE) Urine Glucose (UA) Negative (NEGATIVE) Urine Ketones Negative (NEGATIVE) Urine Blood Negative (NEGATIVE) Urine Nitrite Negative (NEGATIVE) Urine Bilirubin Negative (NEGATIVE) Urine Urobilinogen Normal MG/DL (0.0-1.0) Urine Leukocyte Esterase Negative (NEGATIVE) Urine Opiates Screen Negative (NEGATIVE) Urine Barbiturates Screen Negative (NEGATIVE) Phencyclidine (PCP) Screen Negative (NEGATIVE) Urine Amphetamines Screen Negative (NEGATIVE) Urine Benzodiazepines Screen Negative (NEGATIVE) Urine Cocaine Screen Positive (NEGATIVE) H Urine Marijuana (THC) Screen Negative (NEGATIVE) Height (Feet): 5 Height (Inches): 4.00 Weight (Pounds): 215 Medications Current Medications Medications (Trade) Dose Ordered Sig/Brian Route PRN Reason Start Time Stop Time Status Last Admin Dose Admin Acetaminophen (Tylenol) 650 mg Q4H PRN ORAL Mild Pain (Pain Scale 1-3) 05/02/20 02:15 06/01/20 02:14 05/02/20 06:53 Diphenhydramine HCl (Benadryl) 25 mg Q6H PRN ORAL Itching 05/02/20 01:15 06/01/20 01:14 Heparin Sodium (Porcine) (Heparin 5000 units/ml) 5,000 units EVERY 12 HOURS SUBQ 05/02/20 09:00 06/16/20 08:59 Hydromorphone HCl (Dilaudid) 0.5 mg Q3H PRN IVP For Pain 05/02/20 01:15 05/09/20 01:14 05/02/20 07:13 Lactated Ringer's 1,000 ml @ 100 mls/hr Q10H ONCE IV 05/02/20 02:00 05/02/20 11:59 05/02/20 01:56 Piperacillin Sod/ Tazobactam Sod 3.375 gm/Sodium Chloride 110 ml @ 27.5 mls/hr Q8HR@0000,0800,1600 IVPB 05/02/20 08:00 05/09/20 07:59 Assessment/Plan Diagnosis Saline I: Mrs. Penn is a 64F with PMH of cocaine abuse, HTN, HLD, gastritis, irritable bowel syndrome, recurrent small bowel obstruction and diverticulitis readmitted for abdominal pain. A: # Generalized Abdominal Pain 2/2 Diverticulitis vs Drug abuse vs gastritis vs possible somatic symptom disorder # Acute Sigmoid Diverticulitis # Nausea/Vomiting w/ poor oral intake # Cocaine Abuse # Essential vs Drug Induced HTN # HLD # Hx Gastritis # Hx of IBS # Hx of SBO P: - hemodynamically stable and no respiratory compromise - patient was sleeping comfortably upon me entering her room before she started to complain of worsening pain again, possible underlying psych component - KUB reviewed - no signs of perf or obstruction - will trial liquid diet - continue Zosyn for now for diverticulitis until confirmed she can tolerate orals - no clinical indications to repeat CT abd as complications of diverticulitis or other etiologies low on dx; will continue to monitor - IVF - zofran prn - UTOX positive again for cocaine; I discussed with her results of that and possible cause of her symptoms, but does not know how this UTOX was positive as she denies recent use - I counseled with her regarding importance of recreational drug use abstinence - consult Dr. Hartley GI, recs appreciated - consult for substance abuse CODE: Full GI: none Fluids: LR 100 cc Diet: Clears DVT: Heparin 5000U BID Dispo: pending resolution of abdominal pain and able to tolerate orals, possibly discharge tomorrow In addition to the usual care above I spent additional time reviewing records in the EMR and paper charts including physician documentation, nursing documentation, lab results, imaging and clinical documentation. Total time included was 35 min. Time spent on this encounter was 45 minutes which included 25 minutes of counseling and care coordination. I discussed with the nurse at bedside. Time of note may not reflect time patient was seen. Edwin Morales D.O May 02, 2020 08:09
[2020-05-02] MEDS: Heparin 5000 units/ml inj SUBQ SCH ×2 (09:00→20:10)
[2020-05-02] MEDS ORDERED: Mylanta II UD 30ml ORAL PRN (10:00)
[2020-05-02] MEDS ORDERED: HydrALAZINE 25mg tab ORAL PRN (10:00)
[2020-05-02] MEDS ORDERED: Miralax 17gm pkt ORAL PRN (10:00)
[2020-05-02] MEDS ORDERED: Albuterol/Ipratropium 3ml neb HHN PRN (10:00)
[2020-05-02] MEDS ORDERED: Milk of Magnesia 30ml Ud ORAL PRN (10:00)
[2020-05-02 10:14] LABS: HEMATOCRIT 41.4 % (37.0-47.0); HEMOGLOBIN 13.7 G/DL (12.0-16.0); MEAN CORPUSCULAR VOLUME 93 FL (80-99); PLATELET COUNT 246 K/UL (150-450); RED BLOOD COUNT 4.44 M/UL (4.20-5.40); WHITE BLOOD COUNT 5.8 K/UL (4.8-10.8)
[2020-05-02 10:46] LABS: ALANINE AMINOTRANSFERASE 16 U/L (12-78); ALBUMIN 2.8 G/DL (3.4-5.0); ALBUMIN/GLOBULIN RATIO 0.7 (1.0-2.7); ALKALINE PHOSPHATASE 58 U/L (46-116); ANION GAP 3 mmol/L (5-15); ASPARTATE AMINO TRANSFERASE 14 U/L (15-37); BILIRUBIN,TOTAL 0.3 MG/DL (0.2-1.0); BLOOD UREA NITROGEN 8 mg/dL (7-18); CALCIUM 8.7 MG/DL (8.5-10.1); CARBON DIOXIDE 29 MMOL/L (21-32); CHLORIDE 109 MMOL/L (98-107); CREATININE 1.1 MG/DL (0.55-1.30); POTASSIUM 4.3 MMOL/L (3.5-5.1); SODIUM 141 MMOL/L (136-145)
--- NOTE | 2020-05-02 10:46 | NUR ---
Social Work This SW received a consult due to substance abuse. This SW met with patient who denied using any substances, stating she drinks alcohol socially. Patient denied any mental health, depression or any other concerns. Patient remains independent (uses cane as needed) and living in her mothers home, who recently with her son. Patient receives SSI. No other needs or concerns at this time; emotional support provided.
--- NOTE | 2020-05-02 10:53 | General Progress Note ---
Subjective ROS Limited/Unobtainable: Yes Allergies: Coded Allergies: CIMETIDINE (Verified Allergy, Unknown, 04/25/19) IODINATED CONTRAST MEDIA (Verified Allergy, Unknown, 04/25/19) Uncoded Allergies: IDODINE (Allergy, Unknown, 04/25/19) Objective Last 24 Hour Vital Signs Date Time Temp Pulse Resp B/P (MAP) Pulse Ox O2 Delivery O2 Flow Rate FiO2 05/02/20 07:43 97.8 05/02/20 07:23 97.8 05/02/20 04:04 97.8 68 16 140/78 (98) 94 05/02/20 00:54 98.0 62 18 138/70 (92) 98 05/02/20 00:53 Room Air 05/02/20 00:35 98.5 90 15 156/87 98 Room Air 05/02/20 00:00 98.5 90 15 156/87 98 Room Air 05/01/20 23:59 98.5 05/01/20 22:35 98.5 92 18 169/101 97 Room Air 05/01/20 22:18 98.5 05/01/20 21:30 84 18 Room Air 05/01/20 20:46 98.4 84 18 187/111 (136) 96 Room Air Intake and Output 05/01/20 05/02/20 19:00 07:00 Intake Total 500 ml Balance 500 ml Intake Oral 0 ml IV Total 500 ml # Voids 3 Laboratory Tests 05/01/20 21:35: White Blood Count 6.4, Red Blood Count 4.76, Hemoglobin 14.9, Hematocrit 45.2, Mean Corpuscular Volume 95, Mean Corpuscular Hemoglobin 31.3H, Mean Corpuscular Hemoglobin Concent 32.9, Red Cell Distribution Width 13.4, Platelet Count 272, Mean Platelet Volume 9.6, Neutrophils (%) (Auto) 42.4L, Lymphocytes (%) (Auto) 47.0H, Monocytes (%) (Auto) 5.2, Eosinophils (%) (Auto) 3.7H, Basophils (%) (Auto) 1.8, Prothrombin Time 10.0, Prothromb Time International Ratio 0.9, Activated Partial Thromboplast Time 26, Sodium Level 144, Potassium Level 3.9, Chloride Level 108H, Carbon Dioxide Level 30, Anion Gap 7, Blood Urea Nitrogen 9, Creatinine 1.2, Estimat Glomerular Filtration Rate 54.9, Glucose Level 100, Calcium Level 9.1, Total Bilirubin 0.1L, Aspartate Amino Transf (AST/SGOT) 16, Alanine Aminotransferase (ALT/SGPT) 14, Alkaline Phosphatase 66, Troponin I 0.000, Total Protein 6.9, Albumin 3.1L, Globulin 3.8, Albumin/Globulin Ratio 0.8L, Lipase 150 05/01/20 23:10: Urine Color Pale yellow, Urine Appearance Clear, Urine pH 7, Urine Specific [place] 1.005, Urine Protein Negative, Urine Glucose (UA) Negative, Urine Ketones Negative, Urine Blood Negative, Urine Nitrite Negative, Urine Bilirubin Negative, Urine Urobilinogen Normal, Urine Leukocyte Esterase Negative, Urine Opiates Screen Negative, Urine Barbiturates Screen Negative, Phencyclidine (PCP) Screen Negative, Urine Amphetamines Screen Negative, Urine Benzodiazepines Screen Negative, Urine Cocaine Screen PositiveH, Urine Marijuana (THC) Screen N egative 05/02/20 09:10: White Blood Count 5.8, Red Blood Count 4.44, Hemoglobin 13.7, Hematocrit 41.4, Mean Corpuscular Volume 93, Mean Corpuscular Hemoglobin 31.0, Mean Corpuscular Hemoglobin Concent 33.2, Red Cell Distribution Width 13.0, Platelet Count 246, Mean Platelet Volume 9.4, Neutrophils (%) (Auto) , Lymphocytes (%) (Auto) , Monocytes (%) (Auto) , Eosinophils (%) (Auto) , Basophils (%) (Auto) , Sodium Level 141, Potassium Level 4.3, Chloride Level 109H, Carbon Dioxide Level 29, Anion Gap 3L, Blood Urea Nitrogen 8, Creatinine 1.1, Estimat Glomerular Filtration Rate > 60, Glucose Level 92, Calcium Level 8.7, Total Bilirubin 0.3, Aspartate Amino Transf (AST/SGOT) 14L, Alanine Aminotransferase (ALT/SGPT) 16, Alkaline Phosphatase 58, Total Protein 6.9, Albumin 2.8L, Globulin 4.1, Albumin/Globulin Ratio 0.7L, Neutrophils % (Manual) [Pending], Lymphocytes % (Manual) [Pending], Platelet Estimate [Pending], Platelet Morphology [Pending] Height (Feet): 5 Height (Inches): 4.00 Weight (Pounds): 215 General Appearance: alert EENT: normal ENT inspection Neck: supple Cardiovascular: normal rate Respiratory/Chest: decreased breath sounds Abdomen: normal bowel sounds, non tender, soft Extremities: non-tender Assessment/Plan Assessment/Plan: recurrent admission for abd pain ? recent diverticulitis + cocaine no prior h/o EGd and colonoscopy plan EGD and colonoscopy for tomorrow Ralph Hartley MD May 02, 2020 10:53
[2020-05-02] MEDS ORDERED: Golytely 4L ORAL ONE (14:00)
[2020-05-02] MEDS: D5 1/2NS w/KCl 20mEq 1,000 ML IV SCH (15:11)
[2020-05-02] MEDS ORDERED: D5 1/2NS 1000ml IV ONE (16:03)
--- NOTE | 2020-05-02 17:44 | NUR ---
CASE MANAGEMENT:INITIAL REVIEW 64 YR OLD FEMALE FROM HOME CC;ABDOMINAL PAIN SI;ABD PAIN. VOMITING. 98.5 92 18 187/111 96% ON RA ALB 3.1 UA ~ NEGATIVE URINE TOX (+) COCAINE COVID RAPID ~ NEGATIVE ABD XRAY ~ NO ACUTE FINDINGS CXR ~ Chronic interstitial lung disease without focal airspace disease. IS;REGLAN IV PROTONIX IV MORPHINE IV BENADRYL IV IVF NS BOLUS DILAUDID IN ZOFRAN IV ZOSYN IV IVF LF ADMITTED TO MED SURG DCP;FROM HOME
--- NOTE | 2020-05-02 19:33 | NUR ---
NURSE HAND-OFF: Important Events on Shift: Rapid COVID test done today with negative results Patient Status: stable/full code Diet: clear liquid to NPO after MN Pending Orders: Pending Results/Labs: am labs. plan for tomorrow EGD and Colonoscopy Pending MD notification:[] Latest Vital Signs: Temperature 97.2 , Pulse 52 , B/P 168 /83 , Respiratory Rate 20 , O2 SAT 95 , Room Air, O2 Flow Rate . Vital Sign Comment: stable Latest Lowery Fall Score: 35 Fall Risk: Medium Risk Safety Measures: Call light Within Reach, Bed Alarm Zone 1, Side Rails Side Rails x2, Bed position Low and Locked. Fall Precautions: Patient Fall Education Report given to Howard GILBERT, pt in stable condition. - consents for EGD and Colonoscopy done - pt is able to able to ambulate to the bathroom with steady gait.
--- NOTE | 2020-05-02 19:34 | NUR ---
NURSE NOTES: Patient in bed, awake and alert x4. On room air with no signs of distress or SOB. IV intact and running IVF as ordered. Bed locked and in lowest position. Call light in reach. Will continue plan of care.
[2020-05-03] VITALS (7 sets, daily range): BP systolic 110–137; BP diastolic 70–92
[2020-05-03] MEDS: Hydromorphone 0.5mg/0.5ml inj IVP PRN ×2 (01:11→05:15)
[2020-05-03] MEDS: D5 1/2NS w/KCl 20mEq 1,000 ML IV SCH (05:20)
--- NOTE | 2020-05-03 06:22 | NUR ---
NURSE HAND-OFF: Important Events on Shift: EGD/colonoscopy for today 05/03, new IV Patient Status: Stable Diet: NPO Pending Orders: EGD/Colonoscopy Pending Results/Labs: CBC, BMP, Mag Pending MD notification: N/A Latest Vital Signs: Temperature 97.7 , Pulse 57 , B/P 137 /92 , Respiratory Rate 20 , O2 SAT 97 , Room Air, O2 Flow Rate . Vital Sign Comment: N/A Latest Lowery Fall Score: 35 Fall Risk: Medium Risk Safety Measures: Call light Within Reach, Bed Alarm Zone 1, Side Rails Side Rails x2, Bed position Low and Locked. Fall Precautions: Patient Fall Education Addendum: 05/03/20 at 0718 by ROMÁN BASSETT RN Report given to OFELIA Chavez
--- NOTE | 2020-05-03 07:10 | NUR ---
NURSE NOTES: received report from OFELIA Retana. patient in bed. A&Ox 4, verbally responsive. no respiratory distress noted on room air. no pain at this time. no ABD pain no vomiting. NPO for EGD. IV on RFA 20 running D51/2ns [id number]. ambulatory steady gait. bed in the lowest position and locked. call light within reach. will continue to provide plan of care.
--- NOTE | 2020-05-03 07:30 | NUR ---
NURSE NOTES: patient left unit for EGD and colonoscopy with stable condition. IV RFA patent. consent signed.
[2020-05-03] MEDS ORDERED: NS 500ML IVPB ONE (07:40)
--- NOTE | 2020-05-03 07:45 | Pre-Procedure Note/Attestation ---
Pre-Procedure Note/Attestation Complete Prior to Procedure Planned Procedure: not applicable Procedure Narrative: esophagogastroduodenoscopy and colonoscopy Indications for Procedure Pre-Operative Diagnosis: abd pain Attestation I attest that I discussed the nature of the procedure; its benefits; risks and complications; and alternatives (and the risks and benefits of such alternatives), prior to the procedure, with the patient (or the patient's legal procurement representative). I attest that, if there was a reasonable possibility of needing a blood transfusion, the patient (or the patient's legal procurement representative) was given the [facility] standardized written summary, pursuant to the [place] Blood Safety Act ([place] Health and Safety Code # 1645, as amended). I attest that I re-evaluated the patient just prior to the surgery and that there has been no change in the patient's H&P, except as documented below: Ralph Hatrley MD May 03, 2020 07:45
[2020-05-03] MEDS ORDERED: Lidocaine 1% MPF 10mg/ml 5ml ONE (08:00)
[2020-05-03] MEDS ORDERED: LR 1000ml ONE (08:00)
--- NOTE | 2020-05-03 08:11 | Endoscopy Procedure Note ---
Endoscopy Procedure Note General Indication for Procedure: abd pain Procedures Performed: EGD, colonoscopy Operative Findings/Diagnosis: 2 polyps, gastritis Specimen: yes Pt Tolerated Procedure Well: Yes Estimated Blood Loss: none Anesthesia Anesthesiologist: allyson Anesthesia: MAC Inserted Devices Implant(s) used?: No Quality Quality of Bowel Preparation: Good Did scope reach the cecum?: Yes Was there any complications?: No GI Core Measures 50 yrs or older w/o bx or poly: Not Applicable 10yrs. F/U recommended: Not Applicable Ralph Hartley MD May 03, 2020 08:11
[2020-05-03] MEDS: Heparin 5000 units/ml inj SUBQ SCH (09:00)
[2020-05-03] MEDS: Piperacillin/Tazobactam 3.375 GM in NS 110 ML IVPB SCH (09:09)
--- NOTE | 2020-05-03 09:27 | Immediate Post-Op Evaluation ---
Immediate Post-Op Evalulation Immediate Post-Op Evalulation Procedure: ED/Colonoscopy Date of Evaluation: May 03, 2020 Time of Evaluation: 08:20 IV Fluids: 500 Blood Pressure Systolic: 124 Blood Pressure Diastolic: 60 Pulse Rate: 58 Respiratory Rate: 14 O2 Sat by Pulse Oximetry: 99 Temperature (Fahrenheit): 98.3 Nausea: No Vomiting: No Complications none Patient Status: awake, reacts, patent Hydration Status: adequate Drug: none Aranza Ashley CRNA May 03, 2020 09:27
--- NOTE | 2020-05-03 09:27 | Anethesia Preoperative Eval ---
Anesthesia Pre-op PMH/ROS General Date of Evaluation: May 03, 2020 Time of Evaluation: 07:40 Anesthesiologist: krystal ASA Score: ASA 3 Mallampati Score Class I : Soft palate, uvula, fauces, pillars visible Class II: Soft palate, uvula, fauces visible Class III: Soft palate, base of uvula visible Class IV: Only hard plate visible Mallampati Classification: Class III Surgeon: radha Diagnosis: Anemia Surgical Procedure: EGD/Colonoscopy Anesthesia History: none Social History: smoking, current smoker, drug use Family History: no anesthesia problems Allergies: Coded Allergies: CIMETIDINE (Verified Allergy, Unknown, 04/25/19) IODINATED CONTRAST MEDIA (Verified Allergy, Unknown, 04/25/19) Uncoded Allergies: IDODINE (Allergy, Unknown, 04/25/19) Medications: see eMAR Patient NPO?: Yes NPO Date: May 03, 2020 NPO Time: 00:01 Past Medical History Cardiovascular: Reports: HTN, CAD Pulmonary: Denies: asthma, COPD, ANNABELLA, other Gastrointestinal/Genitourinary: Reports: GERD; Denies: CRI, ESRD, other Neurologic/Psychiatric: Denies: dementia, CVA, depression/anxiety, TIA, other Endocrine: Reports: DM; Denies: hypothyroidism, steroids, other HEENT: Denies: cataract (L), cataract (R), glaucoma, MOHEGAN (L), MOHEGAN (R), other Hematology/Immune: Reports: anemia; Denies: DVT, bleeding disorder, other Musculoskeletal/Integumentary: Denies: OA, RA, DJD, DDD, edema, other Anesthesia Pre-op Phys. Exam Physician Exam Last Vital Signs Date Time Temp Pulse Resp B/P (MAP) Pulse Ox O2 Delivery O2 Flow Rate FiO2 05/03/20 08:40 98.0 52 17 129/82 96 Room Air 05/03/20 07:30 21 Constitutional: NAD Neurologic: CN 2-12 intact Cardiovascular: RRR Respiratory: CTA Gastrointestinal: S/NT/ND Airway Exam Mallampati Classification 3 Mallampati Score: Class III MO: limited Teeth: broken Dentures: no upper, no lower Anesthesia Pre-op A/P Labs Hematology Test 05/03/20 09:10 White Blood Count Pending Red Blood Count Pending Hemoglobin Pending Hematocrit Pending Mean Corpuscular Volume Pending Mean Corpuscular Hemoglobin Pending Mean Corpuscular Hemoglobin Concent Pending Red Cell Distribution Width Pending Platelet Count Pending Mean Platelet Volume Pending Neutrophils (%) (Auto) Pending Lymphocytes (%) (Auto) Pending Monocytes (%) (Auto) Pending Eosinophils (%) (Auto) Pending Basophils (%) (Auto) Pending Chemistry Test 05/03/20 09:10 Sodium Level Pending Potassium Level Pending Chloride Level Pending Carbon Dioxide Level Pending Blood Urea Nitrogen Pending Creatinine Pending Estimat Glomerular Filtration Rate Pending Glucose Level Pending Calcium Level Pending Magnesium Level Pending Studies Pre-op Studies: EKG - sr Risk Assessment & Plan Assessment: covid neg Plan: mac Status Change Before Surgery: No Pre-Antibiotics Drug: none Aranza Ashley CRNA May 03, 2020 09:27
--- NOTE | 2020-05-03 09:28 | 48 Hour Post Anesthesia Eval ---
Post Anesthesia Evaluation Procedure: ED/Colonoscopy Date of Evaluation: May 03, 2020 Time of Evaluation: 09:28 Blood Pressure Systolic: 129 0: 82 Pulse Rate: 52 Respiratory Rate: 14 O2 Sat by Pulse Oximetry: 98 Airway: patent Nausea: No Vomiting: No Hydration Status: adequate Cardiopulmonary Status: stable Mental Status/LOC: patient returned to baseline Follow-up Care/Observations: na Post-Anesthesia Complications: none Follow-up care needed: N/A Aranza Ashley CRNA May 03, 2020 09:28
[2020-05-03 09:31] LABS: HEMATOCRIT 41.1 % (37.0-47.0); HEMOGLOBIN 13.7 G/DL (12.0-16.0); MEAN CORPUSCULAR VOLUME 93 FL (80-99); PLATELET COUNT 216 K/UL (150-450); RED BLOOD COUNT 4.43 M/UL (4.20-5.40); RED CELL DISTRIBUTION WIDTH 12.6 % (11.6-14.8)
[2020-05-03 09:48] LABS: ANION GAP 5 mmol/L (5-15); BLOOD UREA NITROGEN 5 mg/dL (7-18); CALCIUM 8.7 MG/DL (8.5-10.1); CARBON DIOXIDE 28 MMOL/L (21-32); CHLORIDE 108 MMOL/L (98-107); CREATININE 1.1 MG/DL (0.55-1.30); POTASSIUM 4.1 MMOL/L (3.5-5.1); SODIUM 141 MMOL/L (136-145)
--- NOTE | 2020-05-03 10:00 | NUR ---
NURSE NOTES: patient was seen by . will dc patient today. no new prescription.
--- NOTE | 2020-05-03 11:18 | Discharge Summary ---
Discharge Summary Hospital Course Date of Admission May 01, 2020 at 22:00 Date of Discharge 05/03/2020 Admitting Diagnosis abdominal pain vomiting HPI Zita Naheed Penn is a 64 year old female who was admitted on May 01, 2020 at 22:00 for Abdominal Pain,Vomiting Consultations GI Procedures EGD, colonoscopy(05/03/20) Hospital Course Mrs. Penn is a 64F with PMH of cocaine abuse, HTN, HLD, gastritis, irritable bowel syndrome, recurrent small bowel obstruction and diverticulitis readmitted for abdominal pain, n/v. She underwent EGD and colonoscopy (05/03) with diverticulosis and gastric polyps seen. GI cleared patient for discharge. Patient has not finished 10d course of abx's previously prescribed. Instructed pt to take the rest of abx for recent dx of diverticulitis. no other new medications ordered. pt to be d/c'ed home in good condition. In addition to the usual care above I spent additional time reviewing records in the EMR and paper charts including physician documentation, nursing documentation, lab results, imaging, medications, etc. Total time included was 35 min. Discharge Condition Upon Discharge: stable Discharge Vital Signs Last Vital Signs Date Time Temp Pulse Resp B/P (MAP) Pulse Ox O2 Delivery O2 Flow Rate FiO2 05/03/20 09:28 52 14 98 05/03/20 09:00 Room Air 05/03/20 08:40 98.0 129/82 05/03/20 07:30 21 Discharge Disposition Patient was discharged to home Discharge Diagnoses: (1) Diverticulitis (2) Abdominal pain (3) Nausea & vomiting (4) Cocaine abuse Twin Moore MD May 03, 2020 11:18
--- NOTE | 2020-05-03 11:30 | NUR ---
NURSE NOTES: patient was discharged to home with stable condition via private car. A&Ox4, verbally responsive.no respiratory distress noted on room air. no pain at this time. no dizziness no weakness at this time. provided dc packet. educated patient regarding care at home. no bleeding noted after egd and colonoscopy. removed IV and ID band. checked and counted belongings with patient and obtained sign. left message to Faisal Ramirez/son ([phone])regarding patient discharge. escorted patient to the lobby.
--- NOTE | 2020-05-03 13:15 | Procedure Note ---
DATE OF PROCEDURE: 05/03/2020 SURGEON: Ralph Hartley MD. REFERRING PHYSICIAN: Brooklynn Feliz MD. PROCEDURE: Upper endoscopy with biopsy and colonoscopy with biopsy and polypectomy. ANESTHESIA: Per PRESCRIPTION CLERK, Aranza Tarvinita. INSTRUMENT: Olympus adult flexible endoscope and colonoscope. INDICATION: Abdominal pain. REASON FOR PROCEDURE: The procedure, risks, benefits, and possible consequences, including hemorrhage, aspiration, perforation and infection, and alternative treatments, were explained to the patient/legal guardian by Dr. Ralph Hartley and the patient/legal guardian understood and accepted these risks. PROCEDURE IN DETAIL: After informed consent was obtained and the patient was adequately sedated, Olympus upper endoscope was advanced from mouth into the second portion of the duodenum and retroflexion was performed in the stomach. The patient has diffuse gastritis. Random biopsy from antrum was obtained to rule out H. pylori infection. Otherwise, the rest of upper endoscopic examination grossly within limits. At this time, the upper endoscope was retrieved and the patient was turned over for colonoscopy. First, rectal exam was performed, which was positive for internal hemorrhoids. Then, the scope was advanced from rectum into the cecum documented by appendiceal orifice, ileocecal valve, and right upper quadrant palpation. Quality of prep was very good. The patient has evidence of significant diverticulosis in the left colon. In the cecum, there was a sessile polyp measured roughly about 7 mm, removed with hot snare polypectomy technique. There was another smaller polyp in the ascending colon, removed with cold biopsy forceps technique. There was no further polyp seen in this examination. Retroflexion of rectum showed evidence of internal hemorrhoids. SUMMARY OF FINDINGS: 1. Gastritis, status post biopsy. 2. Internal hemorrhoids. 3. Diverticulosis of the left colon. 4. Two colonic polyps, removed, see above for details. RECOMMENDATIONS: Follow biopsy results and treat accordingly. We recommend repeat colonoscopy in 5 years. I want to thank Dr. Feliz for this kind referral. Ralph Hartley M.D. DR: Karla JOB#: [id number] CC:
== END 2020-05-03 11:27 | disposition home or self-care (01) | DRG 244 ==
LOC: EMR 21:26 → 4E 22:00 → OBSVTOIN 22:00 → EDBEDREQ 23:14
PROC: 0DBH8ZZ Excision of Cecum, Via Natural or Artificial Opening Endoscopic (ICD-10-PCS; 2020-05-03)
PROC: 0DB78ZX Excision of Stomach, Pylorus, Via Natural or Artificial Opening Endoscopic, Diagnostic (ICD-10-PCS; principal; 2020-05-03 07:50)
PROC: 0DBK8ZZ Excision of Ascending Colon, Via Natural or Artificial Opening Endoscopic (ICD-10-PCS; 2020-05-03 07:50)
DX: K57.32 Diverticulitis of large intestine without perforation or abscess without bleeding (principal); F14.10 Cocaine abuse, uncomplicated; K29.70 Gastritis, unspecified, without bleeding; K63.5 Polyp of colon; K64.8 Other hemorrhoids; I10 Essential (primary) hypertension; Z88.8 Allergy status to other drugs, medicaments and biological substances; Z91.041 Radiographic dye allergy status
CPT/HCPCS: 36415; 71045; 74018; 80048; 80053; 80307; 81003; 83690; 83735; 84484; 85007; 85025; 85610; 85730; 86850; 86900; 86901; 93005; 94664; 96361; 96365; 96375; 99285; J2405; J2765; J7030; U0002

== ENCOUNTER 2020-06-18 17:38 | Inpatient (IN) | payer OTHER ==
[~2020-06-18] VITALS: Ht 162.6 cm; Wt 85.1 kg
[2020-06-18] MEDS ORDERED: LORazepam Inj 2mg/ml 1ml IV ONE (17:45)
[2020-06-18] MEDS ORDERED: Lidocaine 2% Visc 15ml soln ORAL ONE (18:00)
[2020-06-18 18:06] LABS: BASOPHILS % (AUTO) 1.3 % (0.0-2.0); EOSINOPHILS % (AUTO) 0.6 % (0.0-3.0); HEMATOCRIT 49.2 % (37.0-47.0); HEMOGLOBIN 16.8 G/DL (12.0-16.0); LYMPHOCYTES % (AUTO) 26.9 % (20.0-45.0); MEAN CORPUSCULAR VOLUME 94 FL (80-99); MONOCYTES % (AUTO) 2.3 % (1.0-10.0); NEUTROPHILS % (AUTO) 68.9 % (45.0-75.0); PLATELET COUNT 254 K/UL (150-450); RED BLOOD COUNT 5.24 M/UL (4.20-5.40); RED CELL DISTRIBUTION WIDTH 13.7 % (11.6-14.8); WHITE BLOOD COUNT 6.8 K/UL (4.8-10.8)
[2020-06-18 18:24] LABS: ANION GAP 12 mmol/L (5-15); BLOOD UREA NITROGEN 15 mg/dL (7-18); CALCIUM 10.1 MG/DL (8.5-10.1); CARBON DIOXIDE 26 MMOL/L (21-32); CHLORIDE 102 MMOL/L (98-107); POTASSIUM 3.2 MMOL/L (3.5-5.1); SODIUM 140 MMOL/L (136-145)
[2020-06-18 18:29] LABS: ALANINE AMINOTRANSFERASE 12 U/L (12-78); ALBUMIN 3.3 G/DL (3.4-5.0); ALBUMIN/GLOBULIN RATIO 0.7 (1.0-2.7); ALKALINE PHOSPHATASE 65 U/L (46-116); ASPARTATE AMINO TRANSFERASE 18 U/L (15-37); BILIRUBIN,TOTAL 0.5 MG/DL (0.2-1.0)
--- NOTE | 2020-06-18 18:30 | NUR ---
ED Nurse Note: Pt was brought in by ambulance d/t vomiting that has been going on for a week; worsen today, accompanied by abdominal pain. Pt is AOx4, screaming in pain, restless and appears to be agitated. Pt was placed on bed and gown, VSS, on RA, afebrile on triage, noted productive coughing; surgical mask on.
--- NOTE | 2020-06-18 18:58 | Diagnostic Imaging Report ---
EXAM: XR Chest, 1 View CLINICAL HISTORY: PAIN TECHNIQUE: Frontal view of the chest. COMPARISON: Chest x-ray dated 05/01/2020 FINDINGS: Lungs: Subtle diffuse airspace opacities which may represent only vascular congestion versus an infectious process. Pleural space: Unremarkable. Heart: Unremarkable. Mediastinum: Unremarkable. Bones/joints: Unremarkable. IMPRESSION: Subtle diffuse airspace opacities which may represent only vascular congestion versus an infectious process.
[2020-06-18 19:04] VITALS: BP 154/87
--- NOTE | 2020-06-18 19:20 | Emergency Room Report ---
History of Present Illness General Chief Complaint: Vomiting Source: Patient, Medical Record (Patricia Jones) Present Illness HPI 64-year-old female presents to the emergency department complaining of 10 out of 10 in severity epigastric abdominal pain with associated nausea and vomiting x1 week. Patient reports that her symptoms have remained constant since onset. Patient reports inability to keep down any oral intake. Patient reports history of IBS, high blood pressure, asthma and similar episodes of vomiting in the past. Patient also reports history of bowel obstruction. She denies blood in the vomit or stool. She denies black tarry stools. She denies constipation or diarrhea. She denies having contact with persons who are experiencing similar symptoms. She denies fevers or chills. She denies headache, dizziness or syncope. She denies marijuana use. She does report intermittent cough that has become productive after taking Mucinex. (Patricia Jones) Allergies: Coded Allergies: CIMETIDINE (Verified Allergy, Unknown, 04/25/19) IODINATED CONTRAST MEDIA (Verified Allergy, Unknown, 04/25/19) IODINE AND IODIDE CONTAINING PRODUC (Unverified Allergy, Unknown, 06/18/20) Uncoded Allergies: IDODINE (Allergy, Unknown, 04/25/19) TEGAMET (Allergy, Unknown, 06/18/20) COVID-19 Screening Contact w/high risk pt: No Experienced COVID-19 symptoms?: Yes COVID-19 Testing performed HAND DEVELOPER: No (Patricia Jones) Patient History Past Medical History: see triage record Past Surgical History: none Pertinent Family History: none Now: No Reviewed Nursing Documentation: PMH: Agreed; PSxH: Agreed (Patricia Jones) Nursing Documentation-PMH Past Medical History: No History, Except For Hx Cardiac Problems: Yes Hx Hypertension: Yes Hx Asthma: Yes Hx Cancer: No Hx Gastrointestinal Problems: Yes - IBS, GERD Hx Neurological Problems: No - anxiety (Patricia Jones) Review of Systems All Other Systems: negative except mentioned in HPI (Patricia Jones) Physical Exam Vital Signs Date Time Temp Pulse Resp B/P (MAP) Pulse Ox O2 Delivery O2 Flow Rate FiO2 06/18/20 17:33 97.5 93 18 154/87 (109) 99 Room Air Sp02 EP Interpretation: reviewed, normal General Appearance: alert, GCS 15, non-toxic, mild distress - pt. moaning and keeps Spitting out her saliva, no active vomiting. Head: normocephalic, atraumatic Eyes: bilateral eye normal inspection, bilateral eye PERRL ENT: hearing grossly normal, normal voice Neck: full range of motion Respiratory: chest non-tender, no respiratory distress, crackles - bilaterally, speaking full sentences Cardiovascular #1: regular rate, rhythm, no edema, normal capillary refill Gastrointestinal: normal bowel sounds, soft, tenderness - epigastric area only Musculoskeletal: normal range of motion, gait/station normal, non-tender Neurologic: alert, motor strength/tone normal, oriented x3, sensory intact, responsive, speech normal Psychiatric: judgement/insight normal Skin: normal color (Patricia Jones) Medical Decision Making PA Attestation Dr. Hutchison is my supervising Physician whom patient management has been discussed with. (Patricia Jones) Diagnostic Impression: Primary Impression: Abdominal pain Qualified Codes: R10.13 - Epigastric pain Additional Impression: Pneumonia Qualified Codes: J18.9 - Pneumonia, unspecified organism ER Course 64-year-old female presents to the emergency department complaining of 10 out of 10 in severity epigastric abdominal pain with associated nausea and vomiting x1 week. Patient reports that her symptoms have remained constant since onset. Patient reports inability to keep down any oral intake. Patient reports history of IBS, high blood pressure, asthma and similar episodes of vomiting in the past. Patient also reports history of bowel obstruction. She denies blood in the vomit or stool. She denies black tarry stools. She denies constipation or diarrhea. She denies having contact with persons who are experiencing similar symptoms. She denies fevers or chills. She denies headache, dizziness or syncope. She denies marijuana use. She does report intermittent cough that has become productive after taking Mucinex. Ddx considered but are not limited to GE, pancreatitis, colitis, acute appendicitis, SBO, Cyclical Vomiting secondary to THC, COVID-19, Electrolyte abnormality/ dehydration just to name a few. Vital signs: pt. is afebrile H&PE are most consistent with Gastritis most likely viral in etiology, no evidence to suggest acute abdomen on physical exam. ORDERS: -CBC:WNL -CMP: potassium 3.2 otherwise WNL -Lipase:WNL -Troponin: WNL 0.001 - UDS: - CXR ( pt. c/o productive cough ) : infiltrates noted in lower lobes bilaterally. -- EKG: had some non-specific T wave changes, different from previous EKG's. Repeated EKG once pt. had medications and was not actively vomiting : no change in new T- wave non specific changes. - Pt. w. hx of cocaine abuse, UDS was then ordered to correlate with EKG findings. ED INTERVENTIONS: - -Zofran 4mg IV - Pepcid 20mg IV - 0.4 Nitro SL DISPOSITION: some labs are pending, Pt. is signed out to Dr. Hutchison Labs Test 06/18/20 17:56 White Blood Count 6.8 K/UL (4.8-10.8) Red Blood Count 5.24 M/UL (4.20-5.40) Hemoglobin 16.8 G/DL (12.0-16.0) Hematocrit 49.2 % (37.0-47.0) Mean Corpuscular Volume 94 FL (80-99) Mean Corpuscular Hemoglobin 32.1 PG (27.0-31.0) Mean Corpuscular Hemoglobin Concent 34.1 G/DL (32.0-36.0) Red Cell Distribution Width 13.7 % (11.6-14.8) Platelet Count 254 K/UL (150-450) Mean Platelet Volume 8.9 FL (6.5-10.1) Neutrophils (%) (Auto) 68.9 % (45.0-75.0) Lymphocytes (%) (Auto) 26.9 % (20.0-45.0) Monocytes (%) (Auto) 2.3 % (1.0-10.0) Eosinophils (%) (Auto) 0.6 % (0.0-3.0) Basophils (%) (Auto) 1.3 % (0.0-2.0) Sodium Level 140 MMOL/L (136-145) Potassium Level 3.2 MMOL/L (3.5-5.1) Chloride Level 102 MMOL/L (98-107) Carbon Dioxide Level 26 MMOL/L (21-32) Anion Gap 12 mmol/L (5-15) Blood Urea Nitrogen 15 mg/dL (7-18) Creatinine 1.0 MG/DL (0.55-1.30) Estimat Glomerular Filtration Rate > 60 mL/min (>60) Glucose Level 135 MG/DL (74-106) Calcium Level 10.1 MG/DL (8.5-10.1) Total Bilirubin 0.5 MG/DL (0.2-1.0) Aspartate Amino Transf (AST/SGOT) 18 U/L (15-37) Alanine Aminotransferase (ALT/SGPT) 12 U/L (12-78) Alkaline Phosphatase 65 U/L (46-116) Troponin I 0.001 ng/mL (0.000-0.056) Total Protein 8.3 G/DL (6.4-8.2) Albumin 3.3 G/DL (3.4-5.0) Globulin 5.0 g/dL Albumin/Globulin Ratio 0.7 (1.0-2.7) Lipase 94 U/L (73-393) (Patricia Jones) ER Course Patient was endorsed to me by physician insurance sales assistant. Laboratory testing was initially unremarkable. Patient was discussed with covering physician for [facility] and patient would be admitted to the hospital for further monitoring and treatment. (Celestino Hutchison MD) EKG Diagnostic Results Troponin ordered: Yes When was troponin ordered?: Jun 18, 2020 EKG Time: 17:50 Rate: normal Rhythm: NSR ST Segments: no acute changes Other Impression Nonspecific T wave changes. Different in comparison to previous EKGs performed 2 months ago. ASA given to the pt in ED: No PA Scribe Text This Interpretation was scribed by ANITA Jones. (Patricia Jones) Chest X-Ray Diagnostic Results Chest X-Ray Diagnostic Results : Chest X-Ray Ordered: Yes # of Views/Limited/Complete: 1 View Indication: Shortness of Breath EP Interpretation: Yes ANITA Xray: Interpretation reviewed, by supervising MD, and agrees with gabriela orta. Interpretation: no effusion, no pneumothorax, no acute cardiopulmonary disease, other - consolitation/ infiltrates noted in the lower lobes Impression: Other - cxr different from previous studies Electronically Signed by: Patricia Jones PA-C (Patricia Jones) Last Vital Signs Date Time Temp Pulse Resp B/P (MAP) Pulse Ox O2 Delivery O2 Flow Rate FiO2 06/18/20 19:04 97.5 18 154/87 99 Room Air 06/18/20 18:35 93 (Patricia Jones) Status: improved (Celestino Hutchison MD) Disposition: ADMITTED INPATIENT Condition: Stable Referrals: NON PHYSICIAN (PCP) Patricia Jones Jun 18, 2020 19:20 Celestino Hutchison MD Jun 25, 2020 13:44
[2020-06-18] MEDS ORDERED: Nitroglycerin Subl 0.4mg tab SL ONE (19:30)
[2020-06-18 21:00] VITALS: BP 148/85
--- NOTE | 2020-06-18 21:00 | NUR ---
ED Nurse Note: Pt resting in bed with eyes closed, assisted to bathroom earlier, pt has asmita unsteady gait at the moment. Pt VSS, IV fluids infusing per order will continue to monitor
[2020-06-18] MEDS ORDERED: Metoclopramide 10mg/2ml Inj ONE (22:55)
[2020-06-18] MEDS ORDERED: Metoclopramide 10mg/2ml Inj IVP ONE (23:00)
--- NOTE | 2020-06-18 23:00 | NUR ---
ED Nurse Note: Pt with multiple episodes of emesis, ERMD aware and awaiting orders. IV fluids continuing to infuse per order, will continue to monitor
--- NOTE | 2020-06-19 00:05 | NUR ---
TRANSFER TO FLOOR: Patient transferred to as ordered, per Dr Feliz. Report given to OFELIA Hawkins. Belongings and medications given to . Family and or S/O informed of transfer.
[2020-06-19] MEDS ORDERED: Albuterol/Ipratropium 3ml neb HHN PRN (00:45)
[2020-06-19] MEDS ORDERED: Nitroglycerin Subl 0.4mg tab SL PRN (00:45)
[2020-06-19] MEDS ORDERED: LORazepam Inj 2mg/ml 1ml IV PRN (00:45)
[2020-06-19 00:49] VITALS: BP 143/86
--- NOTE | 2020-06-19 00:54 | NUR ---
NURSE NOTES: Pt received from OFELIA Sotelo. Pt is resting in bed and c/o nausea and abdominal pain. Pt is A/Ox4 and ambulatory; pt currently prefers to stay in bed due to agitation and abdominal pain. Pt admitting VS T98.1 P87 R24 BP 173/96 98%. Pt is on cardiac monitoring SR and asymptomatic. Pt is breathing shallow on RA due to bronchitis and sating well. Pt has PMSC x4 with weakness in extremities due to pt complaint of nausea. Pt lung sounds clear bilaterally on all lobes. Pt has active bowel sounds on all four quadrants; pt has Nausea currently and reports having vomited x3 within the night. Pt has Lwrist 22G causing pain upon flushing; inserted new IV RHand 22G patent with skin dry and intact. Bed is locked in lowest position with call light within reach. Received orders from Dr. Cannon and will implement plan of care. Will continue to monitor.
--- NOTE | 2020-06-19 01:35 | NUR ---
NURSE NOTES: Pt to start heparin drip. PTT lab drawn and resulted 26 seconds. [employer] notified for label of heparin drip. Pt is ordered to start at 12 units/kg/hr and patient is 85.1 kg. Administering heparin IVP injection and starting ordered rate. New timed PTT ordered at 0735. Will continue to monitor.
[2020-06-19 01:52] LABS: BASOPHILS % (AUTO) 1.1 % (0.0-2.0); EOSINOPHILS % (AUTO) 0.1 % (0.0-3.0); HEMATOCRIT 45.3 % (37.0-47.0); HEMOGLOBIN 16.3 G/DL (12.0-16.0); LYMPHOCYTES % (AUTO) 33.3 % (20.0-45.0); MEAN CORPUSCULAR VOLUME 90 FL (80-99); MONOCYTES % (AUTO) 3.4 % (1.0-10.0); NEUTROPHILS % (AUTO) 62.1 % (45.0-75.0); PLATELET COUNT 286 K/UL (150-450); RED BLOOD COUNT 5.06 M/UL (4.20-5.40); RED CELL DISTRIBUTION WIDTH 14.5 % (11.6-14.8); WHITE BLOOD COUNT 6.1 K/UL (4.8-10.8)
[2020-06-19] MEDS ORDERED: Heparin 5000 units/ml inj IV SCH (02:30)
[2020-06-19] MEDS ORDERED: Heparin 25,000u/D5W 500ml 500 ML IV SCH (02:30)
[2020-06-19 04:00] VITALS: BP 152/82
--- NOTE | 2020-06-19 04:03 | History and Physical ---
History of Present Illness General Reason for Hospitalization: Vomiting Present Illness HPI Mrs. Penn is a 64F with PMH of cocaine abuse, HTN, HLD, gastritis, irritable bowel syndrome, recurrent small bowel obstruction and diverticulitis readmitted for epigastric pain with intractable vomiting. She underwent EGD and colonoscopy (05/03) with diverticulosis and gastric polyps seen. Her initial EKG showed nonspecific t waves without ST changes and patient was started on heparin gtt. Her troponin is negative. Her pain has been ongoing since Saturday. She denies diarrhea or a BM. Allergies: Coded Allergies: CIMETIDINE (Verified Allergy, Unknown, 04/25/19) IODINATED CONTRAST MEDIA (Verified Allergy, Unknown, 04/25/19) IODINE AND IODIDE CONTAINING PRODUC (Unverified Allergy, Unknown, 06/18/20) Uncoded Allergies: IDODINE (Allergy, Unknown, 04/25/19) TEGAMET (Allergy, Unknown, 06/18/20) COVID-19 Screening Contact w/high risk pt: No Experienced COVID-19 symptoms?: Yes Coronavirus symptoms experienc: Nausea/Vomiting Medication History Scheduled Ciprofloxacin* (Cipro*), 500 MG PO BID Docusate Sodium* (Colace*), 100 MG ORAL TWICE A DAY Lactulose (Lactulose*), 20 GM ORAL BID Metronidazole* (Flagyl*), 500 MG ORAL BID Scheduled PRN Acetaminophen* (Tylenol Extra Strength*), 500 MG ORAL Q8H PRN for Prn Headache/Temp > 101 Ondansetron (Zofran), 4 MG ORAL Q6H PRN for Nausea & Vomiting Patient History Healthcare decision maker Resuscitation status Advanced Directive on File Physical Exam General Appearance: WD/WN, alert HEENT: normocephalic Neck: non-tender, supple Respiratory/Chest: chest wall non-tender, lungs clear Cardiovascular/Chest: normal peripheral pulses, normal rate, regular rhythm, no JVD Abdomen: normal bowel sounds Extremities: normal range of motion, non-tender, no edema Last 24 Hour Vital Signs Date Time Temp Pulse Resp B/P (MAP) Pulse Ox O2 Delivery O2 Flow Rate FiO2 06/19/20 00:49 82 06/19/20 00:05 98.0 89 18 148/85 99 Room Air 06/18/20 21:00 98.0 89 18 148/85 99 Room Air 06/18/20 20:07 154/87 06/18/20 19:04 97.5 18 154/87 99 Room Air 06/18/20 18:35 93 18 154/87 99 06/18/20 18:20 93 18 Room Air 06/18/20 17:33 97.5 93 18 154/87 (109) 99 Room Air Laboratory Tests Test 06/18/20 17:56 06/19/20 01:35 White Blood Count 6.8 K/UL (4.8-10.8) 6.1 K/UL (4.8-10.8) Red Blood Count 5.24 M/UL (4.20-5.40) 5.06 M/UL (4.20-5.40) Hemoglobin 16.8 G/DL (12.0-16.0) H 16.3 G/DL (12.0-16.0) H Hematocrit 49.2 % (37.0-47.0) H 45.3 % (37.0-47.0) Mean Corpuscular Volume 94 FL (80-99) 90 FL (80-99) Mean Corpuscular Hemoglobin 32.1 PG (27.0-31.0) H 32.2 PG (27.0-31.0) H Mean Corpuscular Hemoglobin Concent 34.1 G/DL (32.0-36.0) 35.9 G/DL (32.0-36.0) Red Cell Distribution Width 13.7 % (11.6-14.8) 14.5 % (11.6-14.8) Platelet Count 254 K/UL (150-450) 286 K/UL (150-450) Mean Platelet Volume 8.9 FL (6.5-10.1) 9.1 FL (6.5-10.1) Neutrophils (%) (Auto) 68.9 % (45.0-75.0) 62.1 % (45.0-75.0) Lymphocytes (%) (Auto) 26.9 % (20.0-45.0) 33.3 % (20.0-45.0) Monocytes (%) (Auto) 2.3 % (1.0-10.0) 3.4 % (1.0-10.0) Eosinophils (%) (Auto) 0.6 % (0.0-3.0) 0.1 % (0.0-3.0) Basophils (%) (Auto) 1.3 % (0.0-2.0) 1.1 % (0.0-2.0) Sodium Level 140 MMOL/L (136-145) Potassium Level 3.2 MMOL/L (3.5-5.1) L Chloride Level 102 MMOL/L (98-107) Carbon Dioxide Level 26 MMOL/L (21-32) Anion Gap 12 mmol/L (5-15) Blood Urea Nitrogen 15 mg/dL (7-18) Creatinine 1.0 MG/DL (0.55-1.30) Estimat Glomerular Filtration Rate > 60 mL/min (>60) Glucose Level 135 MG/DL (74-106) H Calcium Level 10.1 MG/DL (8.5-10.1) Total Bilirubin 0.5 MG/DL (0.2-1.0) Aspartate Amino Transf (AST/SGOT) 18 U/L (15-37) Alanine Aminotransferase (ALT/SGPT) 12 U/L (12-78) Alkaline Phosphatase 65 U/L (46-116) Troponin I 0.001 ng/mL (0.000-0.056) Total Protein 8.3 G/DL (6.4-8.2) H Albumin 3.3 G/DL (3.4-5.0) L Globulin 5.0 g/dL Albumin/Globulin Ratio 0.7 (1.0-2.7) L Lipase 94 U/L (73-393) Activated Partial Thromboplast Time 26 SEC (23-33) Height (Feet): 5 Height (Inches): 4.00 Weight (Pounds): 190 Medications Current Medications Medications (Trade) Dose Ordered Sig/Brian Route PRN Reason Start Time Stop Time Status Last Admin Dose Admin Acetaminophen (Tylenol) 650 mg Q4H PRN ORAL Mild Pain (Pain Scale 1-3) 06/19/20 00:45 07/19/20 00:44 Albuterol/ Ipratropium (Albuterol/ Ipratropium) 3 ml Q6HR PRN HHN Shortness of Breath 06/19/20 00:45 06/24/20 00:44 Heparin Sodium/ Dextrose 500 ml @ 20.684 mls/ hr ADJUST PER PROTOCOL IV 06/19/20 02:30 07/19/20 02:29 06/19/20 03:10 Lorazepam (Ativan 2mg/ml 1ml) 0.5 mg Q4H PRN IV For Anxiety 06/19/20 00:45 06/26/20 00:44 Nitroglycerin (Ntg) 0.4 mg Q6HR PRN SL Prn Chest Pain 06/19/20 00:45 07/19/20 00:44 Ondansetron HCl (Zofran) 4 mg Q6H PRN IVP Nausea & Vomiting 06/19/20 00:45 07/19/20 00:44 Pantoprazole (Protonix) 40 mg DAILY IV 06/19/20 09:00 07/19/20 08:59 Assessment/Plan Assessment/Plan: Epigastric pain Intractable vomiting H/o SBO Cocaine use Nonspecific T waves Plan - Obtian KUB - Antiemetics prn - LR 100ml/hr - Pain control - PPI - No abx indication - D/c heparin - Serial troponin - Keep SBP <160 - Cardiac montior - Amanuel Cannon, Amanuel Soria DLalo Jun 19, 2020 04:03
[2020-06-19] MEDS: LR 1000ml 1,000 ML IV SCH ×2 (06:34→13:50)
--- NOTE | 2020-06-19 06:58 | NUR ---
NURSE HAND-OFF REPORT: Important Events on Shift:Pt admitted to tele. Pt started on heparin drip. Patient Status: Stable5 Diet: Cardiac Pending Orders: 2D Echo Pending Results/Labs:Morning aPTT Pending MD notification: Latest Vital Signs: Temperature 97.6 , Pulse 83 , B/P 152 /82 , Respiratory Rate 24 , O2 SAT 95 , Room Air, O2 Flow Rate . Vital Sign Comment: VSS EKG Rhythm: Sinus Rhythm Rhythm change?: N MD Notified?: - MD Response: Latest Lowery Fall Score: 45 Fall Risk: High Risk Safety Measures: Call light Within Reach, Bed Alarm Zone 2, Side Rails Side Rails x2, Bed position Low and Locked. Fall Precautions: Patient Fall Education Report given to OFELIA Engle.
--- NOTE | 2020-06-19 07:33 | NUR ---
NURSE NOTES: Received report from Ross/RN. Pt in bed, alert and oriented X4, able to make needs know. On room air, no distress or SOB noted. IV on right hand, on heparin drip 12unit/kg/hr. Bed in lowest position and locked. Call light within reach, encouraged to use it when needed. Side rails up X2. Will continue plan of care.
[2020-06-19 08:00] VITALS: BP 139/91
[2020-06-19] MEDS: Pantoprazole Inj IV SCH (09:01)
--- NOTE | 2020-06-19 09:17 | Diagnostic Imaging Report ---
EXAM: XR Abdomen, 2 Views CLINICAL HISTORY: VOMITING TECHNIQUE: Frontal view of the abdomen/pelvis with upright view of the abdomen. COMPARISON: No relevant prior studies available. FINDINGS/IMPRESSION: Nonobstructed bowel gas pattern. No free intraperitoneal air. The lung bases are clear. Cholecystectomy clips, are incidentally noted.
--- NOTE | 2020-06-19 11:55 | General Progress Note ---
Subjective ROS Limited/Unobtainable: Yes Allergies: Coded Allergies: CIMETIDINE (Verified Allergy, Unknown, 04/25/19) IODINATED CONTRAST MEDIA (Verified Allergy, Unknown, 04/25/19) IODINE AND IODIDE CONTAINING PRODUC (Unverified Allergy, Unknown, 06/18/20) Uncoded Allergies: IDODINE (Allergy, Unknown, 04/25/19) TEGAMET (Allergy, Unknown, 06/18/20) Objective Last 24 Hour Vital Signs Date Time Temp Pulse Resp B/P (MAP) Pulse Ox O2 Delivery O2 Flow Rate FiO2 06/19/20 09:00 Room Air 06/19/20 08:00 97.3 85 20 139/91 (107) 95 06/19/20 08:00 84 06/19/20 04:00 97.6 83 24 152/82 (105) 95 06/19/20 00:49 82 06/19/20 00:49 98.1 87 24 143/86 (105) 98 06/19/20 00:49 Room Air 06/19/20 00:05 98.0 89 18 148/85 99 Room Air 06/18/20 21:00 98.0 89 18 148/85 99 Room Air 06/18/20 20:07 154/87 06/18/20 19:04 97.5 18 154/87 99 Room Air 06/18/20 18:35 93 18 154/87 99 06/18/20 18:20 93 18 Room Air 06/18/20 17:33 97.5 93 18 154/87 (109) 99 Room Air Intake and Output 06/18/20 06/19/20 19:00 07:00 Intake Total 81.368 ml Balance 81.368 ml Intake Oral 0 ml IV Total 81.368 ml # Voids 1 Laboratory Tests 06/18/20 17:56: White Blood Count 6.8, Red Blood Count 5.24, Hemoglobin 16.8H, Hematocrit 49.2H, Mean Corpuscular Volume 94, Mean Corpuscular Hemoglobin 32.1H, Mean Corpuscular Hemoglobin Concent 34.1, Red Cell Distribution Width 13.7, Platelet Count 254, Mean Platelet Volume 8.9, Neutrophils (%) (Auto) 68.9, Lymphocytes (%) (Auto) 26.9, Monocytes (%) (Auto) 2.3, Eosinophils (%) (Auto) 0.6, Basophils (%) (Auto) 1.3, Sodium Level 140, Potassium Level 3.2L, Chloride Level 102, Carbon Dioxide Level 26, Anion Gap 12, Blood Urea Nitrogen 15, Creatinine 1.0, Estimat Glomerular Filtration Rate > 60, Glucose Level 135H, Calcium Level 10.1, Total Bilirubin 0.5, Aspartate Amino Transf (AST/SGOT) 18, Alanine Aminotransferase (ALT/SGPT) 12, Alkaline Phosphatase 65, Troponin I 0.001, Total Protein 8.3H, Albumin 3.3L, Globulin 5.0, Albumin/Globulin Ratio 0.7L, Lipase 94 06/19/20 01:35: White Blood Count 6.1, Red Blood Count 5.06, Hemoglobin 16.3H, Hematocrit 45.3, Mean Corpuscular Volume 90, Mean Corpuscular Hemoglobin 32.2H, Mean Corpuscular Hemoglobin Concent 35.9, Red Cell Distribution Width 14.5, Platelet Count 286, Mean Platelet Volume 9.1, Neutrophils (%) (Auto) 62.1, Lymphocytes (%) (Auto) 33.3, Monocytes (%) (Auto) 3.4, Eosinophils (%) (Auto) 0.1, Basophils (%) (Auto) 1.1, Activated Partial Thromboplast Time 26 06/19/20 07:45: Activated Partial Thromboplast Time 38H 06/19/20 09:00: Troponin I 0.001 Height (Feet): 5 Height (Inches): 4.00 Weight (Pounds): 187 General Appearance: no apparent distress EENT: normal ENT inspection Neck: supple Cardiovascular: normal rate Respiratory/Chest: decreased breath sounds Abdomen: normal bowel sounds, non tender, soft Extremities: non-tender Assessment/Plan Problem List: (1) Abdominal pain ICD Codes: R10.9 - Unspecified abdominal pain SNOMED: 10760887 Qualifiers: Qualified Codes: R10.13 - Epigastric pain (2) Pneumonia ICD Codes: J18.9 - Pneumonia, unspecified organism SNOMED: 972603433 Qualifiers: Qualified Codes: J18.9 - Pneumonia, unspecified organism (3) Diverticulitis ICD Codes: K57.92 - Diverticulitis of intestine, part unspecified, without perforation or abscess without bleeding SNOMED: 626956981 (4) Intractable abdominal pain ICD Codes: R10.9 - Unspecified abdominal pain SNOMED: 30472770 (5) Cocaine abuse ICD Codes: F14.10 - Cocaine abuse, uncomplicated SNOMED: 32941031 Assessment/Plan: s/p EGD and colonoscopy in last admission SUMMARY OF FINDINGS: 1. Gastritis, status post biopsy. 2. Internal hemorrhoids. 3. Diverticulosis of the left colon. 4. Two colonic polyps, removed, see above for details. pain meds seeker advance diet ppi repeat labs Ralph Hartley MD Jun 19, 2020 11:55
[2020-06-19 12:00] VITALS: BP 144/84
[2020-06-19] MEDS: Morphine Sulfate 4mg/ml Inj (IV USE ONLY) IVP PRN ×2 (12:54→18:06)
--- NOTE | 2020-06-19 15:41 | NUR ---
CASE MANAGEMENT:REVIEW BIBA FROM HOME CC: N/V X1 WEEK. ABDOMINAL PAIN. APPEARS TO BE AGITATED SI: ABDOMINAL PAIN. PNEUMONIA 97.6 93 18 154/87 99% ON RA K-3.2 TROPONIN(-) IS: IV ATIVAN IV ZOFRAN GI COCKTAIL NTG SL 1L NS BOLUS IV MAG SULFATE IV REGLAN IV PEPCID CXR : TO TELEMETRY UNIT DCP: FROM HOME
--- NOTE | 2020-06-19 15:54 | NUR ---
CASE MANAGEMENT: Faxed clinical info (face sheet/ H&P/ ER MD notes/ lab and imaging reports/ progress notes) to [facility] @ [phone].
[2020-06-19 16:00] VITALS: BP 131/90
--- NOTE | 2020-06-19 19:25 | NUR ---
NURSE HAND-OFF REPORT: Important Events on Shift:Pt continues with abdominal pain, urine screen came back positive for cocaine. Patient Status: Stable Diet: Cardiac Pending Orders: Pending Results/Labs: Pending MD notification: Latest Vital Signs: Temperature 98.7 , Pulse 77 , B/P 131 /90 , Respiratory Rate 20 , O2 SAT 95 , Room Air, O2 Flow Rate . Vital Sign Comment: Stable EKG Rhythm: Sinus Rhythm Rhythm change?: N MD Notified?: - MD Response: Latest Lowery Fall Score: 45 Fall Risk: High Risk Safety Measures: Call light Within Reach, Bed Alarm Zone 1, Side Rails Side Rails x2, Bed position Low and Locked. Fall Precautions: Yellow Socks Yellow Gown Door Sign Patient Fall Education Report given to Claudia/RN.
[2020-06-19 20:00] VITALS: BP 131/90
[2020-06-20] VITALS: BP 141/81
[2020-06-20] MEDS: LR 1000ml 1,000 ML IV SCH ×2 (00:19→09:13)
--- NOTE | 2020-06-20 03:50 | NUR ---
NURSE NOTES: Received report from Karissa /RN CN. Pt in bed sleeping at this time, alert and oriented X4, able to make needs know. On room air 96%, no distress or SOB noted. IV is in right hand 22G running 100ml/hr. patent and flushed no erythema or bleeding noted. Bed in lowest position and locked. Call light within reach, encouraged to use it when needed. Side rails up X2. Will continue plan of care.
[2020-06-20 04:00] VITALS: BP 135/77
--- NOTE | 2020-06-20 07:44 | NUR ---
NURSE HAND-OFF REPORT: Important Events on Shift: Patient Status: No acute distress Diet: Cardiac diet Pending Orders: Pending Results/Labs: Pending MD notification: Latest Vital Signs: Temperature 97.5 , Pulse 79 , B/P 135 /77 , Respiratory Rate 18 , O2 SAT 95 , Room Air, O2 Flow Rate . Vital Sign Comment: EKG Rhythm: Sinus Rhythm Rhythm change?: N MD Notified?: - MD Response: Latest Lowery Fall Score: 45 Fall Risk: High Risk Safety Measures: Call light Within Reach, Bed Alarm Zone 1, Side Rails Side Rails x2, Bed position Low and Locked. Fall Precautions: Yellow Socks Yellow Gown Door Sign Patient Fall Education Report given to Vivi RN and Maura GILBERT .
[2020-06-20 08:00] VITALS: BP 153/70
--- NOTE | 2020-06-20 08:20 | NUR ---
NURSE NOTES: Received patient report from OFELIA Solis. Patient shows no signs of distress or pain. Patient is AO x4 awake and able to make needs known. Patient is on room air and shows no signs of respiratory distress at the time. IV is intact and running LR at 100 cc/hr. There are no signs of erythema, infiltration, or bleeding. Bed is in the lowest position, call light is within reach, side rails up x2. Will continue to monitor.
[2020-06-20 08:38] LABS: HEMATOCRIT 39.6 % (37.0-47.0); HEMOGLOBIN 13.9 G/DL (12.0-16.0); MEAN CORPUSCULAR VOLUME 93 FL (80-99); PLATELET COUNT 239 K/UL (150-450); RED BLOOD COUNT 4.26 M/UL (4.20-5.40); RED CELL DISTRIBUTION WIDTH 14.1 % (11.6-14.8); WHITE BLOOD COUNT 6.4 K/UL (4.8-10.8)
[2020-06-20 09:05] LABS: ALANINE AMINOTRANSFERASE 16 U/L (12-78); ALBUMIN 2.6 G/DL (3.4-5.0); ALBUMIN/GLOBULIN RATIO 0.7 (1.0-2.7); ALKALINE PHOSPHATASE 50 U/L (46-116); ANION GAP 8 mmol/L (5-15); ASPARTATE AMINO TRANSFERASE 18 U/L (15-37); BILIRUBIN,TOTAL 0.2 MG/DL (0.2-1.0); BLOOD UREA NITROGEN 12 mg/dL (7-18); CALCIUM 9.2 MG/DL (8.5-10.1); CARBON DIOXIDE 30 MMOL/L (21-32); CHLORIDE 106 MMOL/L (98-107); SODIUM 144 MMOL/L (136-145)
[2020-06-20] MEDS: Pantoprazole Inj IV SCH (09:12)
--- NOTE | 2020-06-20 09:16 | General Progress Note ---
Subjective ROS Limited/Unobtainable: Yes Allergies: Coded Allergies: CIMETIDINE (Verified Allergy, Unknown, 04/25/19) IODINATED CONTRAST MEDIA (Verified Allergy, Unknown, 04/25/19) IODINE AND IODIDE CONTAINING PRODUC (Unverified Allergy, Unknown, 06/18/20) Uncoded Allergies: IDODINE (Allergy, Unknown, 04/25/19) TEGAMET (Allergy, Unknown, 06/18/20) Objective Last 24 Hour Vital Signs Date Time Temp Pulse Resp B/P (MAP) Pulse Ox O2 Delivery O2 Flow Rate FiO2 06/20/20 04:00 79 06/20/20 04:00 97.5 80 18 135/77 (96) 06/20/20 00:00 97.7 74 17 141/81 (101) 06/20/20 00:00 75 06/19/20 21:00 Room Air 06/19/20 20:00 98.7 89 20 131/90 (104) 95 06/19/20 20:00 62 06/19/20 16:00 77 06/19/20 16:00 98.7 89 20 131/90 (104) 95 06/19/20 13:24 90 18 144/84 96 06/19/20 12:55 90 18 144/84 96 06/19/20 12:00 98.1 92 18 144/84 (104) 96 06/19/20 12:00 90 Intake and Output 06/19/20 06/20/20 19:00 07:00 Intake Total 1460 ml 1360 ml Balance 1460 ml 1360 ml Intake Oral 360 ml 360 ml IV Total 1100 ml 1000 ml # Voids 3 3 Laboratory Tests 06/19/20 14:40: Troponin I 0.010 06/19/20 17:48: Urine Opiates Screen Negative, Urine Barbiturates Screen Negative, Phencyclidine (PCP) Screen Negative, Urine Amphetamines Screen Negative, Urine Benzodiazepines Screen Negative, Urine Cocaine Screen PositiveH, Urine Marijuana (THC) Screen Negative 06/20/20 06:37: White Blood Count 6.4, Red Blood Count 4.26, Hemoglobin 13.9, Hematocrit 39.6, Mean Corpuscular Volume 93, Mean Corpuscular Hemoglobin 32.6H, Mean Corpuscular Hemoglobin Concent 35.2, Red Cell Distribution Width 14.1, Platelet Count 239, Mean Platelet Volume 9.9, Neutrophils (%) (Auto) , Lymphocytes (%) (Auto) , Monocytes (%) (Auto) , Eosinophils (%) (Auto) , Basophils (%) (Auto) , Neutrophils % (Manual) [Pending], Lymphocytes % (Manual) [Pending], Platelet Estimate [Pending], Platelet Morphology [Pending], Sodium Level [Pending], Potassium Level [Pending], Chloride Level [Pending], Carbon Dioxide Level [Pending], Blood Urea Nitrogen [Pending], Creatinine [Pending], Estimat Glomerular Filtration Rate [Pending], Glucose Level [Pending], Hemoglobin A1c [Pending], Calcium Level [Pending], Total Bilirubin [Pending], Aspartate Amino Transf (AST/SGOT) [Pending], Alanine Aminotransferase (ALT/SGPT) [Pending], Alkaline Phosphatase [Pending], Total Protein [Pending], Albumin [Pending], Globulin [Pending], Triglycerides Level [Pending], Cholesterol Level [Pending], LDL Cholesterol [Pending], HDL Cholesterol [Pending], Cholesterol/HDL Ratio [Pending], Thyroid Stimulating Hormone (TSH) [Pending] Height (Feet): 5 Height (Inches): 4.00 Weight (Pounds): 187 General Appearance: no apparent distress EENT: normal ENT inspection Neck: supple Cardiovascular: normal rate Respiratory/Chest: decreased breath sounds Abdomen: normal bowel sounds, non tender, soft Extremities: non-tender Assessment/Plan Problem List: (1) Abdominal pain ICD Codes: R10.9 - Unspecified abdominal pain SNOMED: 60004592 Qualifiers: Qualified Codes: R10.13 - Epigastric pain (2) Pneumonia ICD Codes: J18.9 - Pneumonia, unspecified organism SNOMED: 943417671 Qualifiers: Qualified Codes: J18.9 - Pneumonia, unspecified organism (3) Diverticulitis ICD Codes: K57.92 - Diverticulitis of intestine, part unspecified, without perforation or abscess without bleeding SNOMED: 220376153 (4) Intractable abdominal pain ICD Codes: R10.9 - Unspecified abdominal pain SNOMED: 89163719 (5) Cocaine abuse ICD Codes: F14.10 - Cocaine abuse, uncomplicated SNOMED: 45006730 Assessment/Plan: s/p EGD and colonoscopy in last admission SUMMARY OF FINDINGS: 1. Gastritis, status post biopsy. 2. Internal hemorrhoids. 3. Diverticulosis of the left colon. 4. Two colonic polyps, removed, see above for details. pain meds seeker advance diet ppi repeat labs Ralph Hartley MD Jun 20, 2020 09:16
[2020-06-20 10:00] LABS: CHOLESTEROL 118 MG/DL (< 200); HDL CHOLESTEROL 35 MG/DL (40-60); TRIGLYCERIDES 79 MG/DL (30-150)
[2020-06-20] MEDS ORDERED: NS 275ml ONE (11:06)
[2020-06-20] MEDS ORDERED: Tubing IV Secondary IV ONE (11:06)
--- NOTE | 2020-06-22 11:30 | NUR ---
INSURANCE CLINICALS/REVIEWS (06/18-06/20) FAXED TO [facility] [phone]
--- NOTE | 2020-06-24 18:19 | Discharge Summary ---
Discharge Summary Hospital Course Date of Admission Jun 18, 2020 at 21:52 Date of Discharge Jun 20, 2020 at 11:07 Admitting Diagnosis chest pain, possible acs HPI Zita Penn is a 64 year old female who was admitted on Jun 18, 2020 at 21:52 for Chest Pain,Possible Acute Coronary Syndrome Hospital Course Physical Exam General: No acute distress, comfortable in bed Cards: RRR, no m/r/g Resp: CTABL Abd: soft, non-tender, non-distended Skin: Warm and dry Neuro: AAOx3 Patient initially presented for epigastric pain and concern for possible chest pain. She was treated with IVF and anti-emetics. Her troponin was trended and negative x3. She was able to advance her diet slowly and her chest pain and abdominal pain resolved. KUB ordered was benign and other labs reviewed wnl. She was also evaluated by GI and did not require any further interventions. Of note, patient has a history of cocaine use in the past and at times seems to request pain medications frequently. Counseled on use and encouraged patient to follow up with PCP to establish care. Discharge Condition Upon Discharge: stable Discharge Vital Signs Last Vital Signs Date Time Temp Pulse Resp B/P (MAP) Pulse Ox O2 Delivery O2 Flow Rate FiO2 06/20/20 09:00 Room Air 06/20/20 08:00 74 06/20/20 08:00 96.8 18 153/70 (97) 06/19/20 20:00 95 Discharge Disposition Patient was discharged to home Jami Ramey M.D. Jun 24, 2020 18:19
== END 2020-06-20 11:07 | disposition home or self-care (01) | DRG 241 ==
LOC: EDBD 17:38 → EMR 18:04 → 2E 21:52 → EDBEDREQ 22:48
DX: K29.70 Gastritis, unspecified, without bleeding (principal); B96.89 Other specified bacterial agents as the cause of diseases classified elsewhere; J18.9 Pneumonia, unspecified organism; K57.30 Diverticulosis of large intestine without perforation or abscess without bleeding; K63.5 Polyp of colon; Z87.19 Personal history of other diseases of the digestive system; Z88.8 Allergy status to other drugs, medicaments and biological substances; Z91.041 Radiographic dye allergy status; F14.10 Cocaine abuse, uncomplicated; K64.8 Other hemorrhoids; I10 Essential (primary) hypertension; E78.5 Hyperlipidemia, unspecified
CPT/HCPCS: 36415; 71045; 74018; 80053; 80061; 80307; 83036; 83690; 84443; 84484; 85007; 85025; 85730; 93005; 96361; 96365; 96375; 96376; 99285; J2405; J2765; J7030